=== PATIENT | female | born 1975 | race Hispanic/Latino ===

== ENCOUNTER → 2016-03-20 | Outpatient (CLI) | payer OTHER ==
--- NOTE | 2016-04-07 00:33 | ECWPNPC ---
PATIENT NAME: PAMELLA LONDONO : 1975 GENDER: FEMALE VISIT DATE: 03/20/2016 DISCHARGE DATE: 03/20/16 1116 VISIT LOCKED DATE TIME: PHYSICIAN: ZANE FOURNIER RESOURCE: ZANE FOURNIER REASON FOR APPOINTMENT 1. BACK/HIPS HISTORY OF PRESENT ILLNESS HISTORY OF PRESENT ILLNESS: HERE FOR F/U OF CHRONIC LEFT LOW BACK PAIN.ALSO C/O CHRONIC NECK PAIN.HAD TPI NECK 12-25-15.REPORTED >50% DECREASE IN PAIN POST PROCEDURE .CONTINUES WITH CHRONIC LBP THAT IS AGGREVATED BY PROLONGED SITTING OR STANDING.RATING PAIN VAS 1/10. PAIN THE PATIENT DESCRIBES THE PAIN... THE PATIENT DESCRIBES THE PAIN... FALL RISK SCREENING: SCREENING :NO FALLS IN THE PAST YEAR CURRENT MEDICATIONS TAKING IRON 325 (65 FE) MG TABLET 1 TABLET ORALLY ONCE A DAY TAKING ADDERALL XR 20 MG CAPSULE EXTENDED RELEASE 24 HOUR 2 CAPSULES IN THE MORNING ORALLY BID TAKING TROKENDI XR 200 MG CAPSULE EXTENDED RELEASE 24 HOUR ORAL ONCE DAILY TAKING PROBIOTIC CAPSULE 1 CAP ORALLY DAILY, NOTES: 12/15/15 1700 TAKING SUMATRIPTAN SUCCINATE 100 MG TABLET 1 TABLET NEEDED ONE TIME ORALLY ONCE A DAY TAKING CYMBALTA 60 MG CAPSULE DELAYED RELEASE PARTICLES 1 CAPSULE ORALLY ONCE A DAY TAKING WELLBUTRIN XL 150 MG TABLET EXTENDED RELEASE 24 HOUR 1 TABLET IN THE MORNING ORALLY ONCE A DAY NOT-TAKING FISH OIL 1000 MG CAPSULE 1 CAPSULE ORALLY ONCE A DAY NOT-TAKING LIDOCAINE VISCOUS 2 % SOLUTION 15 ML NEEDED MOUTH/THROAT EVERY 4 HRS PRN NOT-TAKING ANUSOL-HC 2.5 % CREAM 1 APPLICATION TO AFFECTED AREA RECTAL TWICE A DAY FOR EXTERNAL HEMORRHOIDSAS NEEDED NOT-TAKING LIDOCAINE (ANORECTAL) 5 % CREAM 1 DAB EXTERNALLY TO RECTAL AREA UP TO EVERY 4HRS FOR RECTAL/ANAL PAIN NEEDED NOT-TAKING CLOTRIMAZOLE-BETAMETHASONE 1-0.05 % CREAM APPLY TO AFFECTED AREAS IN EXTERNAL VAGINAL AREA EXTERNALLY NEEDED (NOT TO BE USED INTERNALLY) NOT-TAKING STOOL SOFTENER 100 MG CAPSULE 1 CAPSULE NEEDED ORALLY ONCE A DAY NEEDED MEDICATION LIST REVIEWED AND RECONCILED WITH THE PATIENT PAST MEDICAL HISTORY DEPRESSION/ANXIETY/DYSTHYMIA ADD MIGRAINE HEADACHES ALLERGIC RHINITIS/CONJUNCTIVITIS IRON DEFICIENCY HEMORRHOIDS/INT CONSTIPATION HTN VITAMIN D DEFICIENCY STRESS INCONTINENCE H/O PE/INFARCT IDIOPATHIC HYPERSOMNIA (NEURO.) BACK PAIN ALLERGIES ENVIRONMENTAL: NASAL CONGESTION: ALLERGY MOLD: NASAL CONGESTION: ALLERGY DOGS AND CATS: UNSURE OF REACTION: ALLERGY PT STATES SHE GETS ALLERGY INJECTIONS SOCIAL HISTORY GENERAL: TOBACCO USE ARE YOU A:NONSMOKER LEARNING BARRIERS / SPECIAL NEEDS ORIENTED TO PLAN OF CARE: PATIENT, PAIN MANAGEMENT PATIENT, ORIENTED TO PLAN OF CARE: PATIENT, PAIN MANAGEMENT PATIENT. NEW PATIENT PAIN DIARY TODAY'S VISITNOTES FROM 0-10, WHAT LEVEL IS YOUR PAIN TODAY?0 PAIN CLINIC PFS, CLERGY, PUBLIC HEALTH REFERRALS PFS REFERRAL NEEDED?NO CLERGY REFERRAL NEEDED?NO PUBLIC HEALTH REFERRAL NEEDED?NO WAS THE PROVIDER NOTIFIED OF ANY PERTINENT INFO?NO PFS REFERRAL NEEDED?NO CLERGY REFERRAL NEEDED?NO PUBLIC HEALTH REFERRAL NEEDED?NO WAS THE PROVIDER NOTIFIED OF ANY PERTINENT INFO?NO REVIEW OF SYSTEMS CONSTITUTIONAL: ANY CHANGE IN YOUR MEDICAL CONDITION? NO . CHILLS NO . FEVER NO . INFECTION: DO YOU HAVE NEW INFECTIONS? NO . DO YOU HAVE HISTORY OF MRSA? NO . MUSCULOSKELETAL: ANY NEW PATTERNS OF PAIN OR NUMBNESS? NO . GASTROENTEROLOGY: ANY NEW CHANGE IN BOWEL CONTROL? NO . GENITOURINARY: ANY NEW CHANGE IN BLADDER CONTROL? NO . IS THERE A CHANCE YOU COULD BE ? NO . HEMATOLOGY/LYMPH: DO YOU TAKE ANY BLOOD THINNERS? (FOR EXAMPLE- COUMADIN, PLAVIX, AGGRENOX, PLATEL, PRADAXA, OR XARELTO) NO . WHEN WAS YOUR LAST DOSE? DATE: TIME: . NEUROLOGY: HAVE YOU FALLEN IN THE PAST 6 MONTHS? NO . ANY NEW EXTREMITY NUMBNESS OR WEAKNESS? NO . CARDIOLOGY: DO YOU HAVE A PACEMAKER OR DEFIBRILLATOR? NO . RESPIRATORY: HAVE YOU BEEN SICK IN THE PAST WEEK? NO . FEVER NO . FLU LIKE SYMPTOMS? NO . COUGH NO . INTEGUMENTARY: DO YOU HAVE ANY RASHES OR OPEN SORES? NO . ALLERGIC/IMMUNO: ARE YOU ALLERGIC TO SHELLFISH OR IV DYE? NO . ANY NEW ALLERGIES? NO . PSYCHIATRIC: DO YOU HAVE THOUGHTS OF HURTING YOURSELF OR SOMEONE ELSE? NO . ARE YOU ABUSED, NEGLECTED, OR IN AN UNSAFE ENVIRONMENT? NO . ENDOCRINOLOGY: ARE YOU DIABETIC? NO . OTHER: DO YOU NEED ANY PRESCRIPTIONS? NO . IF YES, PLEASE LIST: ____ . ANY NEW PROBLEMS WITH YOUR MEDICATIONS? NO . WHEN DID YOU LAST EAT? ____ . WHEN DID YOU LAST DRINK? ____ . WHAT DID YOU LAST DRINK? ____ . NAME OF PERSON DRIVING YOU HOME? ____ . DO YOU HAVE ANY OTHER QUESTIONS OR CONCERNS NO . REVIEWED BY: PROVIDER: ZANE CRAWFORD . VITAL SIGNS WT 195 LBS, HT 66 IN, BMI 31.47 INDEX, BP 141/96 R ARM, REPEAT BP 146/96 L ARM, HR 89 /MIN, RR 16 /MIN, TEMP 98.1 F, OXYGEN SAT % 98, NA INITIALS TL 1039. EXAMINATION GENERAL EXAMINATION: LUNGS:LUNG SOUNDS ARE CLEAR. HEART:HEART RATE REGULAR. MUSCULOSKELETAL:*, MUSCLE STRENGTH TESTING 5/5 BILATERAL., PALPATION: NEGATIVE FOR PAIN OVER L/S SPINE. NEGATIVE FOR PAIN OVER L/S PARSPINALS.ROJM SPINE FULL WITHOUT PAIN. DIAGNOSTIC:MRI L/S [id number]-REVIEWED. ASSESSMENTS SPONDYLOSIS OF LUMBAR REGION WITHOUT MYELOPATHY OR RADICULOPATHY - M47.816 (PRIMARY) TREATMENT SPONDYLOSIS OF LUMBAR REGION WITHOUT MYELOPATHY OR RADICULOPATHY LUMBAR FACET THERAPEUTICZANE FOURNIER 03/20/2016 11:10:41 AM > LEFT LUMBAR THERAPEUTIC PROCEDURE CODES FA211 ESTABILISHED PATIENT [facility] CHARGE FOLLOW UP 2WK POST (REASON: LEFT LUMBAR THERAPEUTIC) ELECTRONICALLY SIGNED BY TY FORREST ON 04/06/2016 AT 11:33 AM EST DISCLAIMER : THIS IS A VISIT SUMMARY EXTRACTED FROM THE [employer] CHART. IT IS NOT A COPY OF THE [employer] PROGRESS NOTE. MTDD
== END ==
LOC: M PAIN 10:20
PROVIDERS: ATTEND Nurse Practitioner Family
DX: M47.816 Spondylosis without myelopathy or radiculopathy, lumbar region (principal); M54.2 Cervicalgia; M54.5 Low back pain; G89.29 Other chronic pain; F32.9 Major depressive disorder, single episode, unspecified; F41.9 Anxiety disorder, unspecified; F90.0 Attention-deficit hyperactivity disorder, predominantly inattentive type; G43.909 Migraine, unspecified, not intractable, without status migrainosus; E61.1 Iron deficiency; I10 Essential (primary) hypertension; E55.9 Vitamin D deficiency, unspecified; Z79.899 Other long term (current) drug therapy; Z91.09 Other allergy status, other than to drugs and biological substances

== ENCOUNTER → 2016-05-02 | Outpatient (CLI) | payer OTHER ==
[~2016-05-02] MED LIST: BUPIVACAINE HCL 0.25% 30 ML VIAL As Ordered ONE; ISOVUE-M 300 61% 15ML VIAL (Q9967) As Ordered ONE; LIDOCAINE 1% SDV INJ 30 ML VIAL As Ordered ONE; TRIAMCINOLONE ACETONIDE SUSP 40 MG/ML VIAL (J3301) As Ordered ONE; diazePAM 5 MG TAB As Ordered ONE; oxyCODONE 5MG TAB As Ordered ONE
--- NOTE | 2016-05-02 15:33 | REP ---
Partial lumbar spine series: Single view. History: Lumbar facet block for pain. 24 seconds of fluoroscopy time is reported. Findings: A single fluoroscopically obtained last image hold spot radiograph of the lumbar spine shows needle positions and contrast injections associated with lumbar facet injection procedure. Signed by Jah Mcclure MD 05/02/2016 03:23 P
--- NOTE | 2016-05-11 01:18 | ECWPNPC ---
PATIENT NAME: PAMELLA LONDONO : 1975 GENDER: FEMALE VISIT DATE: 05/02/2016 DISCHARGE DATE: 05/02/16 1134 VISIT LOCKED DATE TIME: PHYSICIAN: WOOD MARMOLEJO RESOURCE: WOOD MARMOLEJO REASON FOR APPOINTMENT 1. L FACET HISTORY OF PRESENT ILLNESS HISTORY OF PRESENT ILLNESS: PAIN THE PATIENT DESCRIBES THE PAIN... FALL RISK SCREENING: SCREENING :NO FALLS IN THE PAST YEAR CURRENT MEDICATIONS TAKING IRON 325 (65 FE) MG TABLET 1 TABLET ORALLY ONCE A DAY NEEDED, NOTES: 2 MONTHS AGO TAKING TROKENDI XR 200 MG CAPSULE EXTENDED RELEASE 24 HOUR ORAL ONCE DAILY, NOTES: 05/01/16 2100 TAKING PROBIOTIC CAPSULE 1 CAP ORALLY DAILY, NOTES: 3 DAYS AGO TAKING SUMATRIPTAN SUCCINATE 100 MG TABLET 1 TABLET NEEDED ONE TIME ORALLY ONCE A DAY, NOTES: 3 DAYS AGO TAKING CYMBALTA 60 MG CAPSULE DELAYED RELEASE PARTICLES 1 CAPSULE ORALLY ONCE A DAY, NOTES: 05/01/16 2100 TAKING WELLBUTRIN XL 150 MG TABLET EXTENDED RELEASE 24 HOUR 1 TABLET IN THE MORNING ORALLY ONCE A DAY, NOTES: 05/01/16 0900 TAKING CONCERTA 36 MG TABLET EXTENDED RELEASE 1 TABLET IN THE MORNING ORALLY TWICE A DAY, NOTES: 05/01/16 1300 NOT-TAKING ADDERALL XR 20 MG CAPSULE EXTENDED RELEASE 24 HOUR 2 CAPSULES IN THE MORNING ORALLY BID NOT-TAKING FISH OIL 1000 MG CAPSULE 1 CAPSULE ORALLY ONCE A DAY NOT-TAKING LIDOCAINE VISCOUS 2 % SOLUTION 15 ML NEEDED MOUTH/THROAT EVERY 4 HRS PRN NOT-TAKING ANUSOL-HC 2.5 % CREAM 1 APPLICATION TO AFFECTED AREA RECTAL TWICE A DAY FOR EXTERNAL HEMORRHOIDSAS NEEDED NOT-TAKING LIDOCAINE (ANORECTAL) 5 % CREAM 1 DAB EXTERNALLY TO RECTAL AREA UP TO EVERY 4HRS FOR RECTAL/ANAL PAIN NEEDED NOT-TAKING CLOTRIMAZOLE-BETAMETHASONE 1-0.05 % CREAM APPLY TO AFFECTED AREAS IN EXTERNAL VAGINAL AREA EXTERNALLY NEEDED (NOT TO BE USED INTERNALLY) NOT-TAKING STOOL SOFTENER 100 MG CAPSULE 1 CAPSULE NEEDED ORALLY ONCE A DAY NEEDED MEDICATION LIST REVIEWED AND RECONCILED WITH THE PATIENT PAST MEDICAL HISTORY DEPRESSION/ANXIETY/DYSTHYMIA ADD MIGRAINE HEADACHES ALLERGIC RHINITIS/CONJUNCTIVITIS (ON ALLERGY INJECTIONS) IRON DEFICIENCY HEMORRHOIDS/INT CONSTIPATION HTN VITAMIN D DEFICIENCY STRESS INCONTINENCE H/O PE/INFARCT IDIOPATHIC HYPERSOMNIA (NEURO.) BACK PAIN CARPAL TUNNEL BILATERAL BONE SPURS CERVICAL AREA ALLERGIES ENVIRONMENTAL: NASAL CONGESTION: ALLERGY MOLD: NASAL CONGESTION: ALLERGY DOGS AND CATS: UNSURE OF REACTION: ALLERGY PT STATES SHE GETS ALLERGY INJECTIONS BANANA (DIAGNOSTIC): TONGUE SWELLING: ALLERGY STRAWBERRY (DIAGNOSTIC): TONGUE SWELLING: ALLERGY PINEAPPLE FLAVOR: TONGUE SWELLING: ALLERGY SURGICAL HISTORY C SECTION. 2006 CERVICAL ABLATION 2013 TONSILLECTOMY 1992 SOCIAL HISTORY GENERAL: TOBACCO USE ARE YOU A:NONSMOKER LEARNING BARRIERS / SPECIAL NEEDS ORIENTED TO PLAN OF CARE: PATIENT, PAIN MANAGEMENT PATIENT, ORIENTED TO PLAN OF CARE: PATIENT, PAIN MANAGEMENT PATIENT. NEW PATIENT PAIN DIARY TODAY'S VISITNOTES FROM 0-10, WHAT LEVEL IS YOUR PAIN TODAY?0 PAIN CLINIC PFS, CLERGY, PUBLIC HEALTH REFERRALS PFS REFERRAL NEEDED?NO CLERGY REFERRAL NEEDED?NO PUBLIC HEALTH REFERRAL NEEDED?NO WAS THE PROVIDER NOTIFIED OF ANY PERTINENT INFO?NO PFS REFERRAL NEEDED?NO CLERGY REFERRAL NEEDED?NO PUBLIC HEALTH REFERRAL NEEDED?NO WAS THE PROVIDER NOTIFIED OF ANY PERTINENT INFO?NO HOSPITALIZATION/MAJOR DIAGNOSTIC PROCEDURE CHILDBIRTH 2002, 2004, 2005 PULMONARY EMBOLISM, WAS TREATED WITH COUMADIN FOR 6 MONTHS, UNKNOWN CAUSE. 01/2003 REVIEW OF SYSTEMS CONSTITUTIONAL: ANY CHANGE IN YOUR MEDICAL CONDITION? NO . CHILLS NO . FEVER NO . INFECTION: DO YOU HAVE NEW INFECTIONS? NO . DO YOU HAVE HISTORY OF MRSA? NO . MUSCULOSKELETAL: ANY NEW PATTERNS OF PAIN OR NUMBNESS? NO . GASTROENTEROLOGY: ANY NEW CHANGE IN BOWEL CONTROL? NO . GENITOURINARY: ANY NEW CHANGE IN BLADDER CONTROL? NO . IS THERE A CHANCE YOU COULD BE ? NO . HEMATOLOGY/LYMPH: DO YOU TAKE ANY BLOOD THINNERS? (FOR EXAMPLE- COUMADIN, PLAVIX, AGGRENOX, PLATEL, PRADAXA, OR XARELTO) NO . WHEN WAS YOUR LAST DOSE? DATE: TIME: . NEUROLOGY: HAVE YOU FALLEN IN THE PAST 6 MONTHS? NO . ANY NEW EXTREMITY NUMBNESS OR WEAKNESS? NO . CARDIOLOGY: DO YOU HAVE A PACEMAKER OR DEFIBRILLATOR? NO . RESPIRATORY: HAVE YOU BEEN SICK IN THE PAST WEEK? NO . FEVER NO . FLU LIKE SYMPTOMS? NO . COUGH NO . INTEGUMENTARY: DO YOU HAVE ANY RASHES OR OPEN SORES? NO . ALLERGIC/IMMUNO: ARE YOU ALLERGIC TO SHELLFISH OR IV DYE? NO . ANY NEW ALLERGIES? NO . PSYCHIATRIC: DO YOU HAVE THOUGHTS OF HURTING YOURSELF OR SOMEONE ELSE? NO . ARE YOU ABUSED, NEGLECTED, OR IN AN UNSAFE ENVIRONMENT? NO . ENDOCRINOLOGY: ARE YOU DIABETIC? NO . OTHER: DO YOU NEED ANY PRESCRIPTIONS? NO . ANY NEW PROBLEMS WITH YOUR MEDICATIONS? NO . WHEN DID YOU LAST EAT? 05/01/162099 . WHEN DID YOU LAST DRINK? 05/01/162099 . WHAT DID YOU LAST DRINK? MILK . NAME OF PERSON DRIVING YOU HOME? BERENICE MARINO . DO YOU HAVE ANY OTHER QUESTIONS OR CONCERNS NO . REVIEWED BY: PROVIDER: . VITAL SIGNS WT 195 LBS, HT 66 IN, BMI 31.47 INDEX, BP 123/81 MM HG, HR 73 /MIN, RR 16 /MIN, TEMP 96.3 F, OXYGEN SAT % 98%, NA INITIALS SC 09:22, REVIEWED BY: LS. ASSESSMENTS SPONDYLOSIS WITHOUT MYELOPATHY OR RADICULOPATHY, LUMBAR REGION - M47.816 (PRIMARY) SPONDYLOSIS WITHOUT MYELOPATHY OR RADICULOPATHY, LUMBOSACRAL REGION - M47.817 PROCEDURES PN LUMBAR FACET BLOCK THERAPEUTIC PRE PROCEDURE DIAGNOSIS LUMBAR SPONDYLOSIS, LUMBOSACRAL SPONDYLOSIS POST PROCEDURE DIAGNOSIS LUMBAR SPONDYLOSIS, LUMBOSACRAL SPONDYLOSIS PROCEDURE LEFT L4-L5 AND LEFT L5-S1 FACET THERAPEUTIC BLOCK SURGEON DR. WOOD MARMOLEJO TOOLROOM MACHINIST NONE ANESTHESIA LOCAL PRE PROCEDURE NOTE THE PATIENT HAS A HISTORY OF CHRONIC LOW BACK PAIN. I EVALUATE THE PATIENT AND REVIEWED THE CHART. I WENT OVER THE RISKS, ALTERNATIVES, AND BENEFITS ASSOCIATED WITH THIS PROCEDURE. THE PATIENT WOULD LIKE TO PROCEED AND GIVE CONSENT TO PERFORMED THE PROCEDURE. THE PATIENT DENIES UNEXPLAINABLE WEIGHT LOSS, FEVER, CHILLS, OR NEW CHANGES IN URINARY OR BOWEL CONTROL. DESCRIPTION OF PROCEDURE THE PATIENT WAS BROUGHT TO THE PROCEDURE ROOM AND PLACED IN THE PRONE POSITION. THE LUMBOSACRAL AREA WAS CLEANED WITH CHLORAPREP SOLUTION AND DRAPED ASEPTICALLY. THE PROCEDURE WAS DONE UNDER STERILE CONDITIONS. I CHECKED LATERALITY AND THE LEVEL WHERE THE PROCEDURE WAS GOING TO BE PERFORMED WITH THE PATIENT AND THE SUPPORTING STAFF AT THE MOMENT OF THE TIME OUT IN THE PROCEDURE ROOM. UNDER FLUOROSCOPIC GUIDANCE, THE TARGET POINT WAS SELECTED AT THE LEFT L4-L5 AND LEFT L5-S1 FACET JOINT. TARGET POINT WAS SELECTED AFTER LATERAL ROTATION AND TILT OF THE MAGNIFIER OF THE C-ARM. LIDOCAINE 0.5% WAS USED TO NUMB THE SKIN AND THE SUBCUTANEOUS TISSUE BELOW IT. SPINAL NEEDLES, 22-GAUGE, WERE ADVANCED UNDER FLUOROSCOPIC GUIDANCE AND FOLLOWING PATIENT FEEDBACK UNTIL THE TARGETS WERE TOUCHED. THE POSITION OF THE NEEDLES WAS VERIFIED WITH AP AND LATERAL VIEWS. AFTER PROPER POSITION OF THE NEEDLES WAS ACHIEVED, ISOVUE-M DYE 30% 0.1 ML WAS INJECTED SHOWING ADEQUATE SPREAD OF THE DYE. THEN A SOLUTION OF 1.9 ML OF BUPIVACAINE 0.125% OF KENALOG 10 MG WAS INJECTED AT EACH SITE. THERE WAS NO EVIDENCE OF BLOOD, PARESTHESIA OR CEREBROSPINAL FLUID DURING THE PROCEDURE. THE PATIENT WAS SENT TO THE RECOVERY ROOM. THE PATIENT WAS MOVING THE EXTREMITIES AND DOING WELL. THERE WAS NO COMPLICATION DURING THE PROCEDURE. FLUOROSCOPY TIME WAS 24 SECONDS POST PROCEDURE NOTE THE PATIENT WILL BE SEEN IN A FOLLOW UP IN THE NEXT FEW WEEKS. INSTRUCTIONS WERE GIVEN, QUESTIONS WERE ANSWERED, AND THE PATIENT EXPRESSED UNDERSTANDING AND AGREES WITH THE PLAN. INSTRUCTIONS WERE GIVEN, QUESTIONS WERE ANSWERED, PATIENT REPORTS UNDERSTANDING AND AGREES WITH THE PLAN. I, KAMILLE FRAUSTO, DOCUMENTED THE ABOVE INFORMATION ACTING A SCRIBE FOR DR. MARMOLEJO. I HAVE REVIEWED THE ABOVE DOCUMENT, WRITTEN BY KAMILLE FRAUSTO SCRIBE AND I VERIFY THAT IT IS ACCURATE. DIAGNOSTIC IMAGING [facility] FACET BLOCK (PAIN)[id number] PROCEDURE CODES 33987 INJ PARAVERT F JNT L/S 1 LEV 63496 INJ PARAVERT F JNT L/S 2 LEV 6045F RADXPS IN END [id number] PXD DISPOSITION & COMMUNICATION FOLLOW UP 3 WEEKS ELECTRONICALLY SIGNED BY WOOD MARMOLEJO MD ON 05/07/2016 AT 01:08 PM EDT DISCLAIMER : THIS IS A VISIT SUMMARY EXTRACTED FROM THE [employer] CHART. IT IS NOT A COPY OF THE [employer] PROGRESS NOTE. MTDD
== END | disposition home or self-care (01) ==
LOC: M PAIN 09:10
PROVIDERS: ATTEND Anesthesiology
DX: G89.29 Other chronic pain (principal); M47.816 Spondylosis without myelopathy or radiculopathy, lumbar region; M47.817 Spondylosis without myelopathy or radiculopathy, lumbosacral region; I10 Essential (primary) hypertension; F32.9 Major depressive disorder, single episode, unspecified; F41.9 Anxiety disorder, unspecified; G43.909 Migraine, unspecified, not intractable, without status migrainosus; E61.1 Iron deficiency; Z79.899 Other long term (current) drug therapy; J30.2 Other seasonal allergic rhinitis; J30.81 Allergic rhinitis due to animal (cat) (dog) hair and dander; J30.89 Other allergic rhinitis; Z91.018 Allergy to other foods
CPT/HCPCS: 64493; 64494; J3301; Q9967

== ENCOUNTER → 2016-05-16 | Outpatient (CLI) | payer OTHER ==
--- NOTE | 2016-05-24 01:54 | ECWPNPC ---
PATIENT NAME: PAMELLA LONDONO : 1975 GENDER: FEMALE VISIT DATE: 05/16/2016 DISCHARGE DATE: 05/16/16 1658 VISIT LOCKED DATE TIME: PHYSICIAN: ZANE FOURNIER RESOURCE: ZANE FOURNIER REASON FOR APPOINTMENT 1. POST PROCEDURE HISTORY OF PRESENT ILLNESS HISTORY OF PRESENT ILLNESS: HERE FOR POST PROCEURE F/U.HAD L4/5-L5/S1 THERAPEUTIC FACET BLOCK.REPORTS IMPROVED ABILITY TO TOLERATE ACTIVITY POST PROCEDURE UNTIL APROXIMATLEY TODAY.PAIN IS AGGREVATED BY INCREASE IN ACTIVITY IE BENDING AND USING ARMS.C/O RIGHT SIDED NECK TENDERNESS.RATING PAIN VAS 3/10 BOTH NECK AND LOW BACK.PAIN IS RELIEVED WITH REST.CURRENTLY USING IBUPROFEN PRN THAT IS NOT HELPFUL. PAIN THE PATIENT DESCRIBES THE PAIN... FALL RISK SCREENING: SCREENING :NO FALLS IN THE PAST YEAR CURRENT MEDICATIONS TAKING IRON 325 (65 FE) MG TABLET 1 TABLET ORALLY ONCE A DAY NEEDED TAKING TROKENDI XR 200 MG CAPSULE EXTENDED RELEASE 24 HOUR ORAL ONCE DAILY TAKING PROBIOTIC CAPSULE 1 CAP ORALLY DAILY TAKING SUMATRIPTAN SUCCINATE 100 MG TABLET 1 TABLET NEEDED ONE TIME ORALLY ONCE A DAY TAKING CYMBALTA 60 MG CAPSULE DELAYED RELEASE PARTICLES 1 CAPSULE ORALLY ONCE A DAY TAKING WELLBUTRIN XL 150 MG TABLET EXTENDED RELEASE 24 HOUR 1 TABLET IN THE MORNING ORALLY ONCE A DAY TAKING CONCERTA 36 MG TABLET EXTENDED RELEASE 1 TABLET IN THE MORNING ORALLY TWICE A DAY NOT-TAKING ADDERALL XR 20 MG CAPSULE EXTENDED RELEASE 24 HOUR 2 CAPSULES IN THE MORNING ORALLY BID NOT-TAKING FISH OIL 1000 MG CAPSULE 1 CAPSULE ORALLY ONCE A DAY NOT-TAKING LIDOCAINE VISCOUS 2 % SOLUTION 15 ML NEEDED MOUTH/THROAT EVERY 4 HRS PRN NOT-TAKING ANUSOL-HC 2.5 % CREAM 1 APPLICATION TO AFFECTED AREA RECTAL TWICE A DAY FOR EXTERNAL HEMORRHOIDSAS NEEDED NOT-TAKING LIDOCAINE (ANORECTAL) 5 % CREAM 1 DAB EXTERNALLY TO RECTAL AREA UP TO EVERY 4HRS FOR RECTAL/ANAL PAIN NEEDED NOT-TAKING CLOTRIMAZOLE-BETAMETHASONE 1-0.05 % CREAM APPLY TO AFFECTED AREAS IN EXTERNAL VAGINAL AREA EXTERNALLY NEEDED (NOT TO BE USED INTERNALLY) NOT-TAKING STOOL SOFTENER 100 MG CAPSULE 1 CAPSULE NEEDED ORALLY ONCE A DAY NEEDED MEDICATION LIST REVIEWED AND RECONCILED WITH THE PATIENT PAST MEDICAL HISTORY DEPRESSION/ANXIETY/DYSTHYMIA ADD MIGRAINE HEADACHES ALLERGIC RHINITIS/CONJUNCTIVITIS (ON ALLERGY INJECTIONS) IRON DEFICIENCY HEMORRHOIDS/INT CONSTIPATION HTN VITAMIN D DEFICIENCY STRESS INCONTINENCE H/O PE/INFARCT IDIOPATHIC HYPERSOMNIA (NEURO.) BACK PAIN CARPAL TUNNEL BILATERAL BONE SPURS CERVICAL AREA ALLERGIES ENVIRONMENTAL: NASAL CONGESTION: ALLERGY MOLD: NASAL CONGESTION: ALLERGY DOGS AND CATS: UNSURE OF REACTION: ALLERGY PT STATES SHE GETS ALLERGY INJECTIONS BANANA (DIAGNOSTIC): TONGUE SWELLING: ALLERGY STRAWBERRY (DIAGNOSTIC): TONGUE SWELLING: ALLERGY PINEAPPLE FLAVOR: TONGUE SWELLING: ALLERGY SOCIAL HISTORY GENERAL: TOBACCO USE ARE YOU A:NONSMOKER LEARNING BARRIERS / SPECIAL NEEDS ORIENTED TO PLAN OF CARE: PATIENT, PAIN MANAGEMENT PATIENT, ORIENTED TO PLAN OF CARE: PATIENT, PAIN MANAGEMENT PATIENT. NEW PATIENT PAIN DIARY TODAY'S VISITNOTES FROM 0-10, WHAT LEVEL IS YOUR PAIN TODAY?0 PAIN CLINIC PFS, CLERGY, PUBLIC HEALTH REFERRALS PFS REFERRAL NEEDED?NO CLERGY REFERRAL NEEDED?NO PUBLIC HEALTH REFERRAL NEEDED?NO WAS THE PROVIDER NOTIFIED OF ANY PERTINENT INFO?NO PFS REFERRAL NEEDED?NO CLERGY REFERRAL NEEDED?NO PUBLIC HEALTH REFERRAL NEEDED?NO WAS THE PROVIDER NOTIFIED OF ANY PERTINENT INFO?NO REVIEW OF SYSTEMS CONSTITUTIONAL: ANY CHANGE IN YOUR MEDICAL CONDITION? NO . CHILLS NO . FEVER NO . INFECTION: DO YOU HAVE NEW INFECTIONS? NO . DO YOU HAVE HISTORY OF MRSA? NO . MUSCULOSKELETAL: ANY NEW PATTERNS OF PAIN OR NUMBNESS? NO . GASTROENTEROLOGY: ANY NEW CHANGE IN BOWEL CONTROL? NO . GENITOURINARY: ANY NEW CHANGE IN BLADDER CONTROL? NO . IS THERE A CHANCE YOU COULD BE ? NO . HEMATOLOGY/LYMPH: DO YOU TAKE ANY BLOOD THINNERS? (FOR EXAMPLE- COUMADIN, PLAVIX, AGGRENOX, PLATEL, PRADAXA, OR XARELTO) NO . WHEN WAS YOUR LAST DOSE? DATE: TIME: . NEUROLOGY: HAVE YOU FALLEN IN THE PAST 6 MONTHS? NO . ANY NEW EXTREMITY NUMBNESS OR WEAKNESS? NO . CARDIOLOGY: DO YOU HAVE A PACEMAKER OR DEFIBRILLATOR? NO . RESPIRATORY: HAVE YOU BEEN SICK IN THE PAST WEEK? NO . FEVER NO . FLU LIKE SYMPTOMS? NO . COUGH NO . INTEGUMENTARY: DO YOU HAVE ANY RASHES OR OPEN SORES? NO . ALLERGIC/IMMUNO: ARE YOU ALLERGIC TO SHELLFISH OR IV DYE? NO . ANY NEW ALLERGIES? NO . PSYCHIATRIC: DO YOU HAVE THOUGHTS OF HURTING YOURSELF OR SOMEONE ELSE? NO . ARE YOU ABUSED, NEGLECTED, OR IN AN UNSAFE ENVIRONMENT? NO . ENDOCRINOLOGY: ARE YOU DIABETIC? NO . OTHER: DO YOU NEED ANY PRESCRIPTIONS? YES . IF YES, PLEASE LIST: ____SOMETHING FOR MUSCLE SPASMS IN HER NECK . ANY NEW PROBLEMS WITH YOUR MEDICATIONS? NO . WHEN DID YOU LAST EAT? ____ . WHEN DID YOU LAST DRINK? ____ . WHAT DID YOU LAST DRINK? ____ . NAME OF PERSON DRIVING YOU HOME? ____ . DO YOU HAVE ANY OTHER QUESTIONS OR CONCERNS YES, MUSCLES SPASMS IN HER NECK ARE INCREASING. . REVIEWED BY: PROVIDER: ZANE CRAWFORD . VITAL SIGNS WT 195 LBS, HT 66 IN, BMI 31.47 INDEX, BP 142/94 MM HG, HR 81 /MIN, RR 16 /MIN, TEMP 97.1 F, OXYGEN SAT % 99, NA INITIALS HS, REVIEWED BY: AD. EXAMINATION GENERAL EXAMINATION: LUNGS:LUNG SOUNDS ARE CLEAR. HEART:HEART RATE REGULAR. MUSCULOSKELETAL:*, MUSCLE STRENGTH TESTING 5/5 BILATERAL., PALPATION: NEGATIVE FOR PAIN OVER L/S SPINE. NEGATIVE FOR PAIN OVER L/S PARSPINALS.ROJM SPINE FULL WITHOUT PAIN. DIAGNOSTIC:MRI L/S [id number]-REVIEWED. ASSESSMENTS LUMBAR FACET ARTHROPATHY - M12.88 (PRIMARY) MYOFASCIAL PAIN - M79.1 TREATMENT LUMBAR FACET ARTHROPATHY START CYCLOBENZAPRINE HCL TABLET, 5 MG, 1 TABLET, ORALLY, Q8H PRN MDD2, 30 DAY(S), 30, REFILLS 1 INJECTION FACET JOINT/NERVE FREDIS/SACRALZANE FOURNIER 05/16/2016 4:40:10 PM > L3/4-L4/5 DIAGNOSTIC LUMBAR FACET BLOCK ZANE FOURNIER 05/16/2016 4:43:20 PM > LEFT ZANE FOURNIER 05/23/2016 5:55:51 PM > DIAGNOSTIC LEFT NOTES: FACET JOINT INJECTION MATERIAL WAS PRINTED,FACET JOINT INJECTION: YOUR EXPERIENCE MATERIAL WAS PRINTED,FACET JOINT INJECTION: YOUR EXPERIENCE MATERIAL WAS PRINTED. PROCEDURE CODES FA211 ESTABILISHED PATIENT [facility] FACILITY CHARGE DISPOSITION & COMMUNICATION FOLLOW UP 2WK POST (REASON: L3/4-L4/5 DIAGNOSTIC LEFT LUMBAR FACET) ELECTRONICALLY SIGNED BY TY FORREST ON 05/23/2016 AT 05:56 PM EDT DISCLAIMER : THIS IS A VISIT SUMMARY EXTRACTED FROM THE [employer] CHART. IT IS NOT A COPY OF THE [employer] PROGRESS NOTE. MTDD
== END ==
LOC: M PAIN 15:00
PROVIDERS: ATTEND Nurse Practitioner Family
DX: M12.88 Other specific arthropathies, not elsewhere classified, other specified site (principal); M79.1 Myalgia; Z79.899 Other long term (current) drug therapy; D50.8 Other iron deficiency anemias; F34.1 Dysthymic disorder; J30.81 Allergic rhinitis due to animal (cat) (dog) hair and dander; J30.2 Other seasonal allergic rhinitis; Z91.018 Allergy to other foods

== ENCOUNTER → 2016-05-22 | Outpatient (REF) | payer OTHER | LOC: M SFHCLERA 12:34 | PROVIDERS: ATTEND Nurse Practitioner Family | DX: J02.9 Acute pharyngitis, unspecified (principal) ==

== ENCOUNTER → 2016-06-09 | Outpatient (CLI) | payer OTHER ==
[~2016-06-09] MED LIST changes: -TRIAMCINOLONE ACETONIDE SUSP 40 MG/ML VIAL (J3301) As Ordered ONE; -diazePAM 5 MG TAB As Ordered ONE; -oxyCODONE 5MG TAB As Ordered ONE
--- NOTE | 2016-06-09 16:08 | REP ---
Partial lumbar spine series: Two views: History: Lumbar facet injection for pain. 21 seconds of fluoroscopy time is reported. Findings: A sequence of two last image hold fluoroscopic spot radiographs of the lumbar spine document various needle positions and contrast injections associated with lumbar spine injection procedure. Signed by Jah Mcclure MD 06/09/2016 06:00 P
--- NOTE | 2016-06-18 23:55 | ECWPNPC ---
PATIENT NAME: PAMELLA LONDONO : 1975 GENDER: FEMALE VISIT DATE: 06/09/2016 DISCHARGE DATE: 06/09/16 1414 VISIT LOCKED DATE TIME: PHYSICIAN: WOOD MARMOLEJO RESOURCE: WOOD MARMOLEJO REASON FOR APPOINTMENT 1. DIAGNOSTIC FACET CURRENT MEDICATIONS TAKING IRON 325 (65 FE) MG TABLET 1 TABLET ORALLY ONCE A DAY NEEDED, NOTES: 05-27-162099 TAKING TROKENDI XR 200 MG CAPSULE EXTENDED RELEASE 24 HOUR ORAL ONCE DAILY, NOTES: 06-07-162099 TAKING PROBIOTIC CAPSULE 1 CAP ORALLY DAILY, NOTES: 05-27-162099 TAKING SUMATRIPTAN SUCCINATE 100 MG TABLET 1 TABLET NEEDED ONE TIME ORALLY ONCE A DAY, NOTES: 06-02-162099 TAKING CYMBALTA 60 MG CAPSULE DELAYED RELEASE PARTICLES 1 CAPSULE ORALLY ONCE A DAY, NOTES: 06-08-16699 TAKING WELLBUTRIN XL 150 MG TABLET EXTENDED RELEASE 24 HOUR 1 TABLET IN THE MORNING ORALLY ONCE A DAY, NOTES: 06-08-16699 TAKING CONCERTA 36 MG TABLET EXTENDED RELEASE 1 TABLET IN THE MORNING ORALLY TWICE A DAY, NOTES: 06-08-16699 NOT-TAKING CYCLOBENZAPRINE HCL 5 MG TABLET 1 TABLET ORALLY Q8H PRN MDD2 NOT-TAKING CYCLOBENZAPRINE HCL 5 MG TABLET 1 TABLET ORALLY THREE TIMES A DAY NOT-TAKING AMOXICILLIN 500 MG TABLET 2 TABLETS ORALLY ONCE A DAY NOT-TAKING CHLORHEXIDINE GLUCONATE 0.12 % SOLUTION 15 ML MOUTH/THROAT, SWISH AND SPIT BID PAST MEDICAL HISTORY DEPRESSION/ANXIETY/DYSTHYMIA ADD MIGRAINE HEADACHES ALLERGIC RHINITIS/CONJUNCTIVITIS (ON ALLERGY INJECTIONS) IRON DEFICIENCY HEMORRHOIDS/INT CONSTIPATION HTN VITAMIN D DEFICIENCY STRESS INCONTINENCE H/O PE/INFARCT IDIOPATHIC HYPERSOMNIA (NEURO.) BACK PAIN CARPAL TUNNEL BILATERAL BONE SPURS CERVICAL AREA ALLERGIES ENVIRONMENTAL: NASAL CONGESTION: ALLERGY MOLD: NASAL CONGESTION: ALLERGY DOGS AND CATS: UNSURE OF REACTION: ALLERGY PINEAPPLE FLAVOR: TONGUE SWELLING: ALLERGY PT STATES SHE GETS ALLERGY INJECTIONS BANANA (DIAGNOSTIC): TONGUE SWELLING: ALLERGY STRAWBERRY (DIAGNOSTIC): TONGUE SWELLING: ALLERGY VITAL SIGNS WT 200 LBS, HT 66 IN, BMI 32.28 INDEX, BP 125/80 MM HG, HR 73 /MIN, RR 16 /MIN, TEMP 98.3 F, OXYGEN SAT % 97%, SAFE IN ENV? (Y/N) YES, NA INITIALS SC 12:02, REVIEWED BY: KG. ASSESSMENTS SPONDYLOSIS WITHOUT MYELOPATHY OR RADICULOPATHY, LUMBAR REGION - M47.816 (PRIMARY) SPONDYLOSIS WITHOUT MYELOPATHY OR RADICULOPATHY, LUMBOSACRAL REGION - M47.817 PROCEDURES PN LUMBAR FACET BLOCK DIAGNOSTIC PRE PROCEDURE DIAGNOSIS 1. LUMBAR SPONDYLOSIS. 2. LUMBOSACRAL SPONDYLOSIS. POST PROCEDURE DIAGNOSIS 1. LUMBAR SPONDYLOSIS. 2. LUMBOSACRAL SPONDYLOSIS. PROCEDURE LEFT L4-L5, L5-S1 FACET DIAGNOSTIC BLOCK NUMBER #[address] WOOD MARMOLEJO INTELLIGENCE CHIEF NONE ANESTHESIA LOCAL PRE PROCEDURE NOTE 40 YEAR-OLD PATIENT WITH HISTORY OF CHRONIC LOW BACK PAIN. I EVALUATED THE PATIENT AND REVIEWED THE CHART. I WENT OVER THE RISKS, ALTERNATIVES, AND BENEFITS ASSOCIATED WITH THIS PROCEDURE. THE PATIENT WOULD LIKE TO PROCEED AND GAVE CONSENT TO PERFORM THE PROCEDURE. AGREED WITH THE PATIENT WE ARE DOING THIS PROCEDURE TO DETERMINE IF THE PATIENT IS A CANDIDATE FOR A RADIOFREQUENCY ABLATION OF THE FACETS JOINTS. THE PATIENT DENIES UNEXPLAINABLE WEIGHT LOSS, FEVER, CHILLS, OR NEW CHANGES IN URINARY OR BOWEL CONTROL. DESCRIPTION OF PROCEDURE THE PATIENT WAS BROUGHT TO THE PROCEDURE ROOM AND PLACED IN THE PRONE POSITION. THE LUMBOSACRAL AREA WAS CLEANED WITH CHLORAPREP SOLUTION AND DRAPED ASEPTICALLY. THE PROCEDURE WAS DONE UNDER STERILE CONDITIONS. I CHECKED LATERALITY AND THE LEVEL WHERE THE PROCEDURE WAS GOING TO BE PERFORMED WITH THE PATIENT AND THE SUPPORTING STAFF AT THE MOMENT OF THE TIME OUT IN THE PROCEDURE ROOM. UNDER FLUOROSCOPIC GUIDANCE, TARGETS WERE SELECTED AT THE INTERSECTION OF THE LEFT TRANSVERSE PROCESS OF L4, L5 AND ALA OF S1 WITH ITS RESPECTIVE SUPERIOR ARTICULAR PROCESS. LIDOCAINE WAS USED TO NUMB THE SKIN AND THE SUBCUTANEOUS TISSUE BELOW IT. SPINAL NEEDLE, 22-GAUGE WAS ADVANCED UNDER FLUOROSCOPIC GUIDANCE AND FOLLOWING PATIENT FEEDBACK UNTIL THE TARGETS WERE REACHED. POSITION OF THE NEEDLES WAS VERIFIED WITH AP AND LATERAL VIEWS. AFTER PROPER POSITION OF THE NEEDLES WAS ACHIEVED, ISOVUE-M DYE 30% 0.1 ML WAS INJECTED AT EACH SITE SHOWING ADEQUATE SPREAD OF THE DYE. THEN A SOLUTION OF 0.4 ML OF BUPIVACAINE 0.25%, WAS INJECTED AT EACH SITE. THERE WAS NO EVIDENCE OF BLOOD, PARESTHESIA OR CEREBROSPINAL FLUID DURING THE PROCEDURE. THE PATIENT WAS SENT TO THE RECOVERY ROOM. THE PATIENT WAS MOVING THE EXTREMITIES AND DOING WELL. THERE WAS NO COMPLICATION DURING THE PROCEDURE. FLUOROSCOPY TIME WAS 21 SECONDS. POST PROCEDURE NOTE THE PATIENT WILL DOCUMENT HIS PAIN LEVEL AND RESPONSE TO THIS PROCEDURE EVERY 30 MINUTES. THE PATIENT WILL BE SEEN IN A FOLLOW UP IN THE NEXT FEW WEEKS. FURTHER DETERMINATION FOR HIS CASE WILL BE DONE AT THE NEXT VISIT. INSTRUCTIONS WERE GIVEN, QUESTIONS WERE ANSWERED, AND THE PATIENT EXPRESSED UNDERSTANDING AND AGREED WITH THE PLAN. I, KAMILLE FRAUSTO, DOCUMENTED THE ABOVE INFORMATION ACTING A SCRIBE FOR DR. MARMOLEJO. I HAVE REVIEWED THE ABOVE DOCUMENT, WRITTEN BY KAMILLE FRAUSTO SCRIBE AND I VERIFY THAT IT IS ACCURATE. DIAGNOSTIC IMAGING [facility] FACET BLOCK (PAIN)[id number] PROCEDURE CODES 11676 INJ PARAVERT F JNT L/S 1 LEV 05872 INJ PARAVERT F JNT L/S 2 LEV 6045F RADXPS IN END [id number] PXD DISPOSITION & COMMUNICATION FOLLOW UP 3 WEEKS ELECTRONICALLY SIGNED BY WOOD MARMOLEJO MD ON 06/18/2016 AT 04:23 PM EDT DISCLAIMER : THIS IS A VISIT SUMMARY EXTRACTED FROM THE [employer] CHART. IT IS NOT A COPY OF THE [employer] PROGRESS NOTE. MTDD
== END ==
LOC: M PAIN 11:40
PROVIDERS: ATTEND Anesthesiology
DX: G89.29 Other chronic pain (principal); M47.816 Spondylosis without myelopathy or radiculopathy, lumbar region; M47.817 Spondylosis without myelopathy or radiculopathy, lumbosacral region; M54.5 Low back pain; F41.9 Anxiety disorder, unspecified; F32.9 Major depressive disorder, single episode, unspecified; F34.1 Dysthymic disorder; G43.909 Migraine, unspecified, not intractable, without status migrainosus; I10 Essential (primary) hypertension; E55.9 Vitamin D deficiency, unspecified; D50.9 Iron deficiency anemia, unspecified; Z79.899 Other long term (current) drug therapy; Z91.09 Other allergy status, other than to drugs and biological substances; Z91.018 Allergy to other foods; J30.81 Allergic rhinitis due to animal (cat) (dog) hair and dander; J30.89 Other allergic rhinitis
CPT/HCPCS: 64493; 64494; Q9967

== ENCOUNTER → 2016-06-29 | Outpatient (CLI) | payer OTHER ==
[~2016-06-29] MED LIST changes: +AMPHET/DEXTR; -BUPIVACAINE HCL 0.25% 30 ML VIAL As Ordered ONE; +CONC36TA4 PO; +CYCL5TA; -ISOVUE-M 300 61% 15ML VIAL (Q9967) As Ordered ONE; -LIDOCAINE 1% SDV INJ 30 ML VIAL As Ordered ONE; +METH18TA2; +NAPR500T PO; +PERC5TAB6 PO; +SUMA100T2; +TROK1CAP; +VALI5TAB PO
--- NOTE | 2016-07-13 00:36 | ECWPNPC ---
PATIENT NAME: PAMELLA LONDONO : 1975 GENDER: FEMALE VISIT DATE: 06/29/2016 DISCHARGE DATE: 06/29/16 1226 VISIT LOCKED DATE TIME: PHYSICIAN: ZANE FOURNIER RESOURCE: ZANE FOURNIER REASON FOR APPOINTMENT 1. BACK- HISTORY OF PRESENT ILLNESS HISTORY OF PRESENT ILLNESS: HER FOR POST PROCEDURE F/U.HAD DIAGNOSTIC LEFT L4/5-L5/S1 ON 06-09-16.FORGOT PAIN DIARY BUT REPORTS >50% IMPROVEMENT IN LEFT LOW BACK PAIN X3 WEEKS AND NOW PAIN HAS RETURNED TO BASELINE.RATING PAIN VAS 3/10.DISCUSSED TREATMENT PLAN.DISCUSSED RADIOFREQUENCY PROCEDURE. PAIN THE PATIENT DESCRIBES THE PAIN... FALL RISK SCREENING: SCREENING :NO FALLS IN THE PAST YEAR CURRENT MEDICATIONS TAKING IRON 325 (65 FE) MG TABLET 1 TABLET ORALLY ONCE A DAY NEEDED TAKING TROKENDI XR 200 MG CAPSULE EXTENDED RELEASE 24 HOUR ORAL ONCE DAILY TAKING PROBIOTIC CAPSULE 1 CAP ORALLY DAILY TAKING SUMATRIPTAN SUCCINATE 100 MG TABLET 1 TABLET NEEDED ONE TIME ORALLY ONCE A DAY TAKING CYMBALTA 60 MG CAPSULE DELAYED RELEASE PARTICLES 1 CAPSULE ORALLY ONCE A DAY TAKING WELLBUTRIN XL 150 MG TABLET EXTENDED RELEASE 24 HOUR 1 TABLET IN THE MORNING ORALLY ONCE A DAY TAKING CONCERTA 36 MG TABLET EXTENDED RELEASE 1 TABLET IN THE MORNING ORALLY TWICE A DAY NOT-TAKING CYCLOBENZAPRINE HCL 5 MG TABLET 1 TABLET ORALLY Q8H PRN MDD2 NOT-TAKING CYCLOBENZAPRINE HCL 5 MG TABLET 1 TABLET ORALLY THREE TIMES A DAY NOT-TAKING AMOXICILLIN 500 MG TABLET 2 TABLETS ORALLY ONCE A DAY NOT-TAKING CHLORHEXIDINE GLUCONATE 0.12 % SOLUTION 15 ML MOUTH/THROAT, SWISH AND SPIT BID MEDICATION LIST REVIEWED AND RECONCILED WITH THE PATIENT PAST MEDICAL HISTORY DEPRESSION/ANXIETY/DYSTHYMIA ADD MIGRAINE HEADACHES ALLERGIC RHINITIS/CONJUNCTIVITIS (ON ALLERGY INJECTIONS) IRON DEFICIENCY HEMORRHOIDS/INT CONSTIPATION HTN VITAMIN D DEFICIENCY STRESS INCONTINENCE H/O PE/INFARCT IDIOPATHIC HYPERSOMNIA (NEURO.) BACK PAIN CARPAL TUNNEL BILATERAL BONE SPURS CERVICAL AREA ALLERGIES ENVIRONMENTAL: NASAL CONGESTION: ALLERGY MOLD: NASAL CONGESTION: ALLERGY DOGS AND CATS: UNSURE OF REACTION: ALLERGY PINEAPPLE FLAVOR: TONGUE SWELLING: ALLERGY PT STATES SHE GETS ALLERGY INJECTIONS BANANA (DIAGNOSTIC): TONGUE SWELLING: ALLERGY STRAWBERRY (DIAGNOSTIC): TONGUE SWELLING: ALLERGY REVIEW OF SYSTEMS CONSTITUTIONAL: ANY CHANGE IN YOUR MEDICAL CONDITION? NO . CHILLS NO . FEVER NO . INFECTION: DO YOU HAVE NEW INFECTIONS? NO . DO YOU HAVE HISTORY OF MRSA? NO . MUSCULOSKELETAL: ANY NEW PATTERNS OF PAIN OR NUMBNESS? NO . GASTROENTEROLOGY: ANY NEW CHANGE IN BOWEL CONTROL? NO . GENITOURINARY: ANY NEW CHANGE IN BLADDER CONTROL? NO . IS THERE A CHANCE YOU COULD BE ? NO . HEMATOLOGY/LYMPH: DO YOU TAKE ANY BLOOD THINNERS? (FOR EXAMPLE- COUMADIN, PLAVIX, AGGRENOX, PLATEL, PRADAXA, OR XARELTO) NO . WHEN WAS YOUR LAST DOSE? DATE: TIME: . NEUROLOGY: HAVE YOU FALLEN IN THE PAST 6 MONTHS? NO . ANY NEW EXTREMITY NUMBNESS OR WEAKNESS? NO . CARDIOLOGY: DO YOU HAVE A PACEMAKER OR DEFIBRILLATOR? NO . RESPIRATORY: HAVE YOU BEEN SICK IN THE PAST WEEK? NO . FEVER NO . FLU LIKE SYMPTOMS? NO . COUGH NO . INTEGUMENTARY: DO YOU HAVE ANY RASHES OR OPEN SORES? NO . ALLERGIC/IMMUNO: ARE YOU ALLERGIC TO SHELLFISH OR IV DYE? NO . ANY NEW ALLERGIES? NO . PSYCHIATRIC: DO YOU HAVE THOUGHTS OF HURTING YOURSELF OR SOMEONE ELSE? NO . ARE YOU ABUSED, NEGLECTED, OR IN AN UNSAFE ENVIRONMENT? NO . ENDOCRINOLOGY: ARE YOU DIABETIC? NO . OTHER: DO YOU NEED ANY PRESCRIPTIONS? NO . IF YES, PLEASE LIST: ____ . ANY NEW PROBLEMS WITH YOUR MEDICATIONS? NO . WHEN DID YOU LAST EAT? ____ . WHEN DID YOU LAST DRINK? ____ . WHAT DID YOU LAST DRINK? ____ . NAME OF PERSON DRIVING YOU HOME? ____ . DO YOU HAVE ANY OTHER QUESTIONS OR CONCERNS SHE FORGOT THE PAIN DIARY BUT STATES THE DIAGNOSTIC FACET BLOCK #1 WORKED FOR 14-15 DAYS . REVIEWED BY: PROVIDER: ZANE CRAWFORD . VITAL SIGNS WT 211.0 LBS, HT 66 IN, BMI 34.05 INDEX, BP 144/78 MM HG, HR 73 /MIN, RR 16 /MIN, TEMP 97.6 F, OXYGEN SAT % 100%, NA INITIALS TL 1143. EXAMINATION GENERAL EXAMINATION: LUNGS:LUNG SOUNDS ARE CLEAR. HEART:HEART RATE REGULAR. MUSCULOSKELETAL:*, MUSCLE STRENGTH TESTING 5/5 BILATERAL., PALPATION: NEGATIVE FOR PAIN OVER L/S SPINE. NEGATIVE FOR PAIN OVER L/S PARSPINALS.ROJM SPINE FULL WITHOUT PAIN. DIAGNOSTIC:MRI L/S [id number]-REVIEWED. ASSESSMENTS LUMBAR FACET ARTHROPATHY - M12.88 (PRIMARY) MYOFASCIAL PAIN - M79.1 TREATMENT LUMBAR FACET ARTHROPATHY INJECTION FACET JOINT/NERVE ZANE QUEEN 06/29/2016 12:14:32 PM > L4/5-L5/S1 LEFT DIAGNOSTIC #2 PREVENTIVE MEDICINE PAIN CLINIC TEACHING: PROCEDURE TEACHING PT. DECLINED PRINTED INFORMATION ON DIAGNOSTIC FACET BLOCK STATING SHE IS FAMILIAR WITH THE PROCEDURE. PRE-PROCEDURE INSTRUCTIONS REVIEWED WITH PT. AND SHE VERBALIZED UNDERSTANDING. AD. PROCEDURE CODES FA211 ESTABILISHED PATIENT [facility] CHARGE DISPOSITION & COMMUNICATION FOLLOW UP 2WK POST (REASON: L4/5-L5/S1 DIAGNOSTIC #2 FACET BLOCK) ELECTRONICALLY SIGNED BY TY FORREST ON 07/12/2016 AT 04:59 PM EDT DISCLAIMER : THIS IS A VISIT SUMMARY EXTRACTED FROM THE [employer] CHART. IT IS NOT A COPY OF THE [employer] PROGRESS NOTE. TANISHA
== END | disposition home or self-care (01) ==
LOC: M PAIN 11:00
PROVIDERS: ATTEND Nurse Practitioner Family
DX: G89.29 Other chronic pain (principal); M12.88 Other specific arthropathies, not elsewhere classified, other specified site; M79.1 Myalgia; I10 Essential (primary) hypertension; F41.9 Anxiety disorder, unspecified; F33.9 Major depressive disorder, recurrent, unspecified; F90.9 Attention-deficit hyperactivity disorder, unspecified type; E55.9 Vitamin D deficiency, unspecified; G43.909 Migraine, unspecified, not intractable, without status migrainosus; J30.89 Other allergic rhinitis; Z79.899 Other long term (current) drug therapy; Z91.018 Allergy to other foods; J30.81 Allergic rhinitis due to animal (cat) (dog) hair and dander

== ENCOUNTER 2016-07-03 17:50 | Emergency (ER) | payer OTHER ==
[~2016-07-03] VITALS: Ht 167.6 cm; Wt 90.7 kg
[2016-07-03] MEDS ORDERED: CYCL5TA (18:06)
[2016-07-03] MEDS ORDERED: AMPHET/DEXTR (18:06)
[2016-07-03] MEDS ORDERED: METH18TA2 (18:06)
[2016-07-03] MEDS ORDERED: SUMA100T2 (18:06)
[2016-07-03] MEDS ORDERED: TROK1CAP (18:06)
[2016-07-03] MEDS ORDERED: CONC36TA4 PO (18:06)
--- NOTE | 2016-07-03 18:32 | ECGEPIP ---
Stationary ECG Study [facility] - ED Test Date: 2016-07-03 Pat Name: PAMELLA LONDONO Department: Room: - Gender: F Warehouse Delivery Driver: rn : 1975 Requested By: MARK Nevarez Order Number: [id number] Reading MD: Chuy Martinez Measurements Intervals [place] Rate: 65 P: 30 RI: 175 QRS: 51 QRSD: 83 T: 38 QT: 397 QTc: 414 Interpretive Statements SINUS RHYTHM BENIGN EARLY REPOLARIZATION NO PRIORS Electronically Signed On 07-03-2016 18:32:09 EDT by Chuy Martinez
[2016-07-03 19:32] LABS: INR 0.98
[2016-07-03 19:33] LABS: CONTROL LINE HCG INT CTR LINE PRESENT
[2016-07-03 19:34] LABS: BASO # 0.1 K/mm3 (0.0-0.2); BASO % 0.6 % (0.0-1.0); EOS # 0.1 K/mm3 (0.0-0.50); EOS % 1.2 % (0.0-3.0); LARGE UNSTAINED CELL # 0.2 K/mm3 (0.0-0.4); LARGE UNSTAINED CELL % 1.8 % (0.0-4.0); LYMPH # 2.5 K/mm3 (1.5-4.5); LYMPH % 22.6 % (24.0-44.0); MEAN CORPUSCULAR HEMOGLOBIN 29.9 pg (27.0-33.0); MEAN CORPUSCULAR HGB CONC 33.4 g/dl (32.0-36.5); MEAN CORPUSCULAR VOLUME 89.5 fl (80.0-96.0); MONO # 0.6 K/mm3 (0.0-0.8); MONO % 5.4 % (0.0-5.0); NEUTROPHILS # 7.2 K/mm3 (1.8-7.7); NEUTROPHILS % 68.4 % (36.0-66.0); PLATELET COUNT, AUTOMATED 304 k/mm3 (150-450); RED CELL DISTRIBUTION WIDTH 12.9 % (11.5-14.5); WHITE BLOOD COUNT 10.4 K/mm3 (4.0-10.0)
[2016-07-03 19:41] LABS: ALBUMIN 3.6 GM/DL (3.2-5.2); ALBUMIN/GLOBULIN RATIO 0.88 (1.00-1.93); ALKALINE PHOSPHATASE 99 U/L (45-117); ALT/SGPT 32 U/L (12-78); ANION GAP 6 MEQ/L (8-16); AST/SGOT 17 U/L (15-37); BILIRUBIN,DIRECT 0.1 MG/DL (0.0-0.2); BILIRUBIN,TOTAL 0.3 MG/DL (0.2-1.0); BLOOD UREA NITROGEN 17 MG/DL (7-18); CALCIUM LEVEL 8.7 MG/DL (8.5-10.1); CARBON DIOXIDE LEVEL 28 MEQ/L (21-32); CHLORIDE LEVEL 103 MEQ/L (98-107); CREATININE FOR GFR 0.84 MG/DL (0.55-1.02); GLOMERULAR FILTRATION RATE > 60.0 (>58); GLUCOSE, FASTING 87 MG/DL (70-105); POTASSIUM SERUM 3.9 MEQ/L (3.5-5.1); SODIUM LEVEL 137 MEQ/L (136-145); TOTAL PROTEIN 7.7 GM/DL (6.4-8.2)
[2016-07-03] MEDS ORDERED: MORPHINE 4 MG/ML 1ML SYRINGE IV PRN (19:45)
[2016-07-03] MEDS ORDERED: ONDANSETRON 4MG/2ML VIAL (J2405) IV ONE (19:45)
[2016-07-03] MEDS ORDERED: NAPR500T PO (22:39)
[2016-07-03] MEDS ORDERED: PERC5TAB6 PO (22:39)
[2016-07-03] MEDS ORDERED: VALI5TAB PO (22:39)
[2016-07-03] MEDS ORDERED: OXYCODONE/APAP 5MG/325MG(BULK FOR ED) 1 TABLET PO ONE (22:45)
[2016-07-03] MEDS ORDERED: KETOROLAC 30 MG/ML VIAL (J1885) IV ONE (22:45)
[2016-07-03 22:47] VITALS: BP 132/88
[2016-07-03] MEDS ORDERED: diazePAM 5 MG TAB PO ONE (23:15)
[2016-07-03] MEDS ORDERED: KETOROLAC TROMETHAMINE 10 MG TAB PO ONE (23:15)
--- NOTE | 2016-07-04 01:19 | REP ---
Clinical: Chest pain . Comparison: None . Technique: PA and lateral. Findings: The mediastinum and cardiac silhouette are normal. The lung nuñez are clear and without acute consolidation, effusion, or pneumothorax. The skeletal structures are intact and normal. Impression: 1. No acute cardiopulmonary process. Signed by Will White MD 07/04/2016 01:10 A
== END 2016-07-03 23:16 | disposition home or self-care (01) ==
LOC: M ED 22:16
DX: R07.89 Other chest pain (principal); M54.9 Dorsalgia, unspecified
CPT/HCPCS: 71020; 80048; 80076; 82550; 82553; 83690; 84703; 85025; 85379; 85610; 85730; 93005; 93041; 96374; 96375; 99284; J2405

== ENCOUNTER → 2016-07-19 | Outpatient (CLI) | payer OTHER ==
[~2016-07-19] MED LIST changes: +BUPIVACAINE HCL 0.25% 30 ML VIAL As Ordered ONE; +ISOVUE-M 300 61% 15ML VIAL (Q9967) As Ordered ONE; +LIDOCAINE 1% SDV INJ 30 ML VIAL As Ordered ONE
--- NOTE | 2016-07-19 14:31 | REP ---
PARTIAL LUMBAR SPINE SERIES: Single view. HISTORY: Facet block for pain. 21 seconds of fluoroscopy time is reported. FINDINGS: A single fluoroscopically obtained intraprocedural spot radiograph of the lumbar spine documents various needle positions and contrast injections associated with lumbar spine facet injection procedure. Signed by Jah Mcclure MD 07/19/2016 03:49 P
--- NOTE | 2016-08-01 00:57 | ECWPNPC ---
PATIENT NAME: PAMELLA LONDONO : 1975 GENDER: FEMALE VISIT DATE: 07/19/2016 DISCHARGE DATE: 07/19/16 1335 VISIT LOCKED DATE TIME: PHYSICIAN: WOOD MARMOLEJO RESOURCE: WOOD MARMOLEJO REASON FOR APPOINTMENT 1. LUMBAR FACET HISTORY OF PRESENT ILLNESS HISTORY OF PRESENT ILLNESS: PAIN THE PATIENT DESCRIBES THE PAIN... FALL RISK SCREENING: SCREENING :NO FALLS IN THE PAST YEAR CURRENT MEDICATIONS TAKING IRON 325 (65 FE) MG TABLET 1 TABLET ORALLY ONCE A DAY NEEDED, NOTES: 07-17-16 TAKING TROKENDI XR 200 MG CAPSULE EXTENDED RELEASE 24 HOUR ORAL ONCE DAILY, NOTES: 07-18-16 2100 TAKING PROBIOTIC CAPSULE 1 CAP ORALLY DAILY, NOTES: NONE RECENT TAKING SUMATRIPTAN SUCCINATE 100 MG TABLET 1 TABLET NEEDED ONE TIME ORALLY ONCE A DAY, NOTES: NONE NEEDED TAKING CYMBALTA 60 MG CAPSULE DELAYED RELEASE PARTICLES 1 CAPSULE ORALLY ONCE A DAY, NOTES: 07-18-16 2100 TAKING WELLBUTRIN XL 150 MG TABLET EXTENDED RELEASE 24 HOUR 1 TABLET IN THE MORNING ORALLY ONCE A DAY, NOTES: 07-18-16 AM TAKING CONCERTA 36 MG TABLET EXTENDED RELEASE 1 TABLET IN THE MORNING ORALLY TWICE A DAY, NOTES: 07-19-16 0800 TAKING PERCOCET 5-325 MG TABLET 1 TABLET NEEDED ORALLY EVERY 6 HRS, NOTES: NONE RECENT TAKING NORCO 5-325 MG TABLET 1 TABLET NEEDED ORALLY EVERY 6 HRS, NOTES: NONE RECENT TAKING KETOCONAZOLE 2 % CREAM APPLY THIN LAYER TO LEFT ARM AND RIGHT FOOT EXTERNALLY ONCE A DAY, NOTES: NONE RECENT MEDICATION LIST REVIEWED AND RECONCILED WITH THE PATIENT PAST MEDICAL HISTORY DEPRESSION/ANXIETY/DYSTHYMIA ADD MIGRAINE HEADACHES ALLERGIC RHINITIS/CONJUNCTIVITIS (ON ALLERGY INJECTIONS) IRON DEFICIENCY HEMORRHOIDS/INT CONSTIPATION HTN VITAMIN D DEFICIENCY STRESS INCONTINENCE H/O PE/INFARCT IDIOPATHIC HYPERSOMNIA (NEURO.) BACK PAIN CARPAL TUNNEL BILATERAL BONE SPURS CERVICAL AREA ALLERGIES ENVIRONMENTAL: NASAL CONGESTION: ALLERGY MOLD: NASAL CONGESTION: ALLERGY DOGS AND CATS: UNSURE OF REACTION: ALLERGY PINEAPPLE FLAVOR: TONGUE SWELLING: ALLERGY PT STATES SHE GETS ALLERGY INJECTIONS BANANA (DIAGNOSTIC): TONGUE SWELLING: ALLERGY STRAWBERRY (DIAGNOSTIC): TONGUE SWELLING: ALLERGY REVIEW OF SYSTEMS CONSTITUTIONAL: ANY CHANGE IN YOUR MEDICAL CONDITION? NO . CHILLS NO . FEVER NO . INFECTION: DO YOU HAVE NEW INFECTIONS? NO . DO YOU HAVE HISTORY OF MRSA? NO . MUSCULOSKELETAL: ANY NEW PATTERNS OF PAIN OR NUMBNESS? NO . GASTROENTEROLOGY: ANY NEW CHANGE IN BOWEL CONTROL? NO . GENITOURINARY: ANY NEW CHANGE IN BLADDER CONTROL? NO . IS THERE A CHANCE YOU COULD BE ? NO . HEMATOLOGY/LYMPH: DO YOU TAKE ANY BLOOD THINNERS? (FOR EXAMPLE- COUMADIN, PLAVIX, AGGRENOX, PLATEL, PRADAXA, OR XARELTO) NO . WHEN WAS YOUR LAST DOSE? DATE: TIME: . NEUROLOGY: HAVE YOU FALLEN IN THE PAST 6 MONTHS? NO . ANY NEW EXTREMITY NUMBNESS OR WEAKNESS? NO . CARDIOLOGY: DO YOU HAVE A PACEMAKER OR DEFIBRILLATOR? NO . RESPIRATORY: HAVE YOU BEEN SICK IN THE PAST WEEK? NO . FEVER NO . FLU LIKE SYMPTOMS? NO . COUGH NO . INTEGUMENTARY: DO YOU HAVE ANY RASHES OR OPEN SORES? NO . ALLERGIC/IMMUNO: ARE YOU ALLERGIC TO SHELLFISH OR IV DYE? NO . ANY NEW ALLERGIES? NO . PSYCHIATRIC: DO YOU HAVE THOUGHTS OF HURTING YOURSELF OR SOMEONE ELSE? NO . ARE YOU ABUSED, NEGLECTED, OR IN AN UNSAFE ENVIRONMENT? NO . ENDOCRINOLOGY: ARE YOU DIABETIC? NO . OTHER: DO YOU NEED ANY PRESCRIPTIONS? NO . IF YES, PLEASE LIST: ____ . ANY NEW PROBLEMS WITH YOUR MEDICATIONS? NO . WHEN DID YOU LAST EAT? 07-18-16 2100 . WHEN DID YOU LAST DRINK? 07-19-16 0800 . WHAT DID YOU LAST DRINK? WATER . NAME OF PERSON DRIVING YOU HOME? BERENICE MARINO . DO YOU HAVE ANY OTHER QUESTIONS OR CONCERNS YES, I HAD STARTED TO DEVELOP MUSCLE SPASMS OF UPPER BACK. IT HAPPENED ONE TIME BEFORE, AND LASTED A WHOLE WEEK. NOT SURE IT IT CORRILATES TO ANY OF MY CURRENT PROBLEMS NOW? . REVIEWED BY: PROVIDER: . VITAL SIGNS WT 209 LBS, HT 66 IN, BMI 33.73 INDEX, BP 131/95 MM HG, HR 79 /MIN, RR 16 /MIN, TEMP 97.6 F, OXYGEN SAT % 96%, NA INITIALS SC 11:26, REVIEWED BY: CM. ASSESSMENTS SPONDYLOSIS WITHOUT MYELOPATHY OR RADICULOPATHY, LUMBAR REGION - M47.816 (PRIMARY) SPONDYLOSIS WITHOUT MYELOPATHY OR RADICULOPATHY, LUMBOSACRAL REGION - M47.817 PROCEDURES PN LUMBAR FACET BLOCK DIAGNOSTIC PRE PROCEDURE DIAGNOSIS LUMBAR SPONDYLOSIS, LUMBOSACRAL SPONDYLOSIS POST PROCEDURE DIAGNOSIS LUMBAR SPONDYLOSIS, LUMBOSACRAL SPONDYLOSIS PROCEDURE LEFT L4-L5 AND LEFT L5-S1 FACET BLOCK DIAGNOSTIC NUMBER [address] WOOD MARMOLEJO AIR EXPORT COORDINATOR NONE ANESTHESIA LOCAL PRE PROCEDURE NOTE THE PATIENT WITH HISTORY OF CHRONIC LOW BACK PAIN. I EVALUATED THE PATIENT AND REVIEWED THE CHART. I WENT OVER THE RISKS, ALTERNATIVES, AND BENEFITS ASSOCIATED WITH THIS PROCEDURE. THE PATIENT WOULD LIKE TO PROCEED AND GAVE CONSENT TO PERFORM THE PROCEDURE. AGREED WITH THE PATIENT WE ARE DOING THIS PROCEDURE TO DETERMINE IF THE PATIENT IS A CANDIDATE FOR A RADIOFREQUENCY ABLATION OF THE FACETS JOINTS. THE PATIENT DENIES UNEXPLAINABLE WEIGHT LOSS, FEVER, CHILLS, OR NEW CHANGES IN URINARY OR BOWEL CONTROL DESCRIPTION OF PROCEDURE THE PATIENT WAS BROUGHT TO THE PROCEDURE ROOM AND PLACED IN THE PRONE POSITION. THE LUMBOSACRAL AREA WAS CLEANED WITH CHLORAPREP SOLUTION AND DRAPED ASEPTICALLY. THE PROCEDURE WAS DONE UNDER STERILE CONDITIONS. I CHECKED LATERALITY AND THE LEVEL WHERE THE PROCEDURE WAS GOING TO BE PERFORMED WITH THE PATIENT AND THE SUPPORTING STAFF AT THE MOMENT OF THE TIME OUT IN THE PROCEDURE ROOM. UNDER FLUOROSCOPIC GUIDANCE, TARGETS WERE SELECTED AT THE INTERSECTION OF THE LEFT TRANSVERSE PROCESS OF L4, L5 AND ALA OF S1 WITH ITS RESPECTIVE SUPERIOR ARTICULAR PROCESS. LIDOCAINE WAS USED TO NUMB THE SKIN AND THE SUBCUTANEOUS TISSUE BELOW IT. SPINAL NEEDLE, 22-GAUGE WAS ADVANCED UNDER FLUOROSCOPIC GUIDANCE AND FOLLOWING PATIENT FEEDBACK UNTIL THE TARGETS WERE REACHED. POSITION OF THE NEEDLES WAS VERIFIED WITH AP AND LATERAL VIEWS. AFTER PROPER POSITION OF THE NEEDLES WAS ACHIEVED, ISOVUE-M DYE 30% 0.1 ML WAS INJECTED AT EACH SITE SHOWING ADEQUATE SPREAD OF THE DYE. THEN A SOLUTION OF 0.4 ML OF BUPIVACAINE 0.25% WAS INJECTED AT EACH SITE. THERE WAS NO EVIDENCE OF BLOOD, PARESTHESIA OR CEREBROSPINAL FLUID DURING THE PROCEDURE. THE PATIENT WAS SENT TO THE RECOVERY ROOM. THE PATIENT WAS MOVING THE EXTREMITIES AND DOING WELL. THERE WAS NO COMPLICATION DURING THE PROCEDURE. FLUOROSCOPY TIME WAS 21 SECONDS POST PROCEDURE NOTE THE PATIENT WILL DOCUMENT HIS PAIN LEVEL AND RESPONSE TO THIS PROCEDURE EVERY 30 MINUTES. THE PATIENT WILL BE SEEN IN A FOLLOW UP IN THE NEXT FEW WEEKS. FURTHER DETERMINATION FOR HIS CASE WILL BE DONE AT THE NEXT VISIT. INSTRUCTIONS WERE GIVEN, QUESTIONS WERE ANSWERED, AND THE PATIENT EXPRESSED UNDERSTANDING AND AGREED WITH THE PLAN. I, MAX KENDRICK, DOCUMENTED THE ABOVE INFORMATION ACTING A SCRIBE FOR DR. MARMOLEJO. I HAVE REVIEWED THE ABOVE DOCUMENT, WRITTEN BY MAX AMIN AND I VERIFY THAT IT IS ACCURATE DIAGNOSTIC IMAGING [facility] FACET BLOCK (PAIN)[id number] PROCEDURE CODES 02293 INJ PARAVERT F JNT L/S 1 LEV 60349 INJ PARAVERT F JNT L/S 2 LEV 6045F RADXPS IN END [id number] PXD DISPOSITION & COMMUNICATION FOLLOW UP 3 WEEKS ELECTRONICALLY SIGNED BY WOOD MARMOLEJO MD ON 07/31/2016 AT 09:35 PM EDT DISCLAIMER : THIS IS A VISIT SUMMARY EXTRACTED FROM THE [employer] CHART. IT IS NOT A COPY OF THE [employer] PROGRESS NOTE. MTDD
== END ==
LOC: M PAIN 11:00
PROVIDERS: ATTEND Anesthesiology
DX: G89.29 Other chronic pain (principal); M47.816 Spondylosis without myelopathy or radiculopathy, lumbar region; M47.817 Spondylosis without myelopathy or radiculopathy, lumbosacral region; M54.5 Low back pain; Z79.891 Long term (current) use of opiate analgesic; Z79.899 Other long term (current) drug therapy; Z91.018 Allergy to other foods; J30.89 Other allergic rhinitis; J30.81 Allergic rhinitis due to animal (cat) (dog) hair and dander
CPT/HCPCS: 64493; 64494; Q9967

== ENCOUNTER → 2016-07-26 | Outpatient (REF) | payer OTHER ==
[~2016-07-26] MED LIST changes: -BUPIVACAINE HCL 0.25% 30 ML VIAL As Ordered ONE; -ISOVUE-M 300 61% 15ML VIAL (Q9967) As Ordered ONE; -LIDOCAINE 1% SDV INJ 30 ML VIAL As Ordered ONE
== END ==
LOC: M SFHCLERA 10:18
PROVIDERS: ATTEND Physician Assistant
DX: R63.5 Abnormal weight gain (principal)

== ENCOUNTER → 2016-08-01 | Outpatient (CLI) | payer OTHER ==
[2016-08-02 11:27] LABS: MEAN CORPUSCULAR HEMOGLOBIN 29.6 pg (27.0-33.0); MEAN CORPUSCULAR VOLUME 89.6 fl (80.0-96.0); PLATELET COUNT, AUTOMATED 303 k/mm3 (150-450); WHITE BLOOD COUNT 12.4 K/mm3 (4.0-10.0)
[2016-08-02 11:33] LABS: ALBUMIN 3.5 GM/DL (3.2-5.2); ALBUMIN/GLOBULIN RATIO 0.88 (1.00-1.93); ALKALINE PHOSPHATASE 105 U/L (45-117); ALT/SGPT 21 U/L (12-78); ANION GAP 4 MEQ/L (8-16); AST/SGOT 13 U/L (15-37); BILIRUBIN,TOTAL 0.3 MG/DL (0.2-1.0); BLOOD UREA NITROGEN 17 MG/DL (7-18); CALCIUM LEVEL 8.9 MG/DL (8.5-10.1); CARBON DIOXIDE LEVEL 30 MEQ/L (21-32); CHLORIDE LEVEL 105 MEQ/L (98-107); CREATININE FOR GFR 1.01 MG/DL (0.55-1.02); GLOMERULAR FILTRATION RATE > 60.0 (>58); GLUCOSE, FASTING 89 MG/DL (70-105); POTASSIUM SERUM 4.8 MEQ/L (3.5-5.1); SODIUM LEVEL 139 MEQ/L (136-145); TOTAL PROTEIN 7.5 GM/DL (6.4-8.2)
== END ==
LOC: M LRY 14:49
PROVIDERS: ATTEND Psychiatry & Neurology Neurology
DX: R42 Dizziness and giddiness (principal); G43.009 Migraine without aura, not intractable, without status migrainosus; G44.229 Chronic tension-type headache, not intractable

== ENCOUNTER → 2016-08-09 | Outpatient (CLI) | payer OTHER ==
--- NOTE | 2016-08-10 00:37 | ECWPNPC ---
PATIENT NAME: PAMELLA LONDONO : 1975 GENDER: FEMALE VISIT DATE: 08/09/2016 DISCHARGE DATE: 08/09/16 1113 VISIT LOCKED DATE TIME: PHYSICIAN: ZANE FOURNIER RESOURCE: ZANE FOURNIER HISTORY OF PRESENT ILLNESS GENERAL: HERE FOR DIAGNOSTIC BLOCK #2,LEFT L4/5-L5/S1 POST PROCEDURE F/U.HOURLY PAIN DIARY IS REVIEWED.THIS IS SHOWING 100%IMPROVEMENT FOR 48 HR POST PROCEDURE THEN PAIN RETURNED TO BASELINE.RATING PAIN LEFT LOW BACK 2/10.DESCRIBES PAIN SHARP AND SHOOTING LEFT LOW BACK.PAIN IS AGGREVATED BY DOING LIGHT HOUSEWORK .RELIEVED SOMEWHAT WITH REST. CURRENT MEDICATIONS TAKING IRON 325 (65 FE) MG TABLET 1 TABLET ORALLY ONCE A DAY NEEDED TAKING TROKENDI XR 200 MG CAPSULE EXTENDED RELEASE 24 HOUR ORAL ONCE DAILY TAKING PROBIOTIC CAPSULE 1 CAP ORALLY DAILY TAKING SUMATRIPTAN SUCCINATE 100 MG TABLET 1 TABLET NEEDED ONE TIME ORALLY ONCE A DAY TAKING CYMBALTA 60 MG CAPSULE DELAYED RELEASE PARTICLES 1 CAPSULE ORALLY ONCE A DAY TAKING WELLBUTRIN XL 150 MG TABLET EXTENDED RELEASE 24 HOUR 1 TABLET IN THE MORNING ORALLY ONCE A DAY TAKING CONCERTA 36 MG TABLET EXTENDED RELEASE 1 TABLET IN THE MORNING ORALLY TWICE A DAY TAKING PERCOCET 5-325 MG TABLET 1 TABLET NEEDED ORALLY EVERY 6 HRS TAKING NORCO 5-325 MG TABLET 1 TABLET NEEDED ORALLY EVERY 6 HRS TAKING DIAZEPAM 5 MG TABLET (SCHEDULE IV DRUG) TAKE ONE TABLET BY MOUTH THREE TIMES A DAY NEEDED FOR BACK PAIN MAXIMUM DAILY DOSE 3 TABLETS ORAL NOT-TAKING KETOCONAZOLE 2 % CREAM APPLY THIN LAYER TO LEFT ARM AND RIGHT FOOT EXTERNALLY ONCE A DAY, NOTES: NONE RECENT MEDICATION LIST REVIEWED AND RECONCILED WITH THE PATIENT PAST MEDICAL HISTORY DEPRESSION/ANXIETY/DYSTHYMIA ADD MIGRAINE HEADACHES ALLERGIC RHINITIS/CONJUNCTIVITIS (ON ALLERGY INJECTIONS) IRON DEFICIENCY HEMORRHOIDS/INT CONSTIPATION HTN VITAMIN D DEFICIENCY STRESS INCONTINENCE H/O PE/INFARCT IDIOPATHIC HYPERSOMNIA (NEURO.) BACK PAIN CARPAL TUNNEL BILATERAL BONE SPURS CERVICAL AREA ALLERGIES ENVIRONMENTAL: NASAL CONGESTION: ALLERGY MOLD: NASAL CONGESTION: ALLERGY DOGS AND CATS: UNSURE OF REACTION: ALLERGY PINEAPPLE FLAVOR: TONGUE SWELLING: ALLERGY PT STATES SHE GETS ALLERGY INJECTIONS BANANA (DIAGNOSTIC): TONGUE SWELLING: ALLERGY STRAWBERRY (DIAGNOSTIC): TONGUE SWELLING: ALLERGY VITAL SIGNS WT 212.4 LBS, HT 66 IN, BMI 34.28 INDEX, BP 135/89 MM HG, HR 74 /MIN, RR 16 /MIN, TEMP 97.9 F, OXYGEN SAT % 96%, NA INITIALS TL 1043, REVIEWED BY: NL. EXAMINATION GENERAL EXAMINATION: GENERAL APPEARANCE:COMFORTABLE. PSYCHAFFECT NORMAL. LUNGS:LUNG [place] ARE CLEAR TO AUSCULTATION BILATERALLY. GOOD MOVEMENT OF AIR. HEART:S1, S2 IN A REGULAR RATE AND RHYTHM. NO SIGNIFICANT MURMURS, RUBS OR GALLOPS NOTED. LUMBAR SPINE/LOWER BACK: PALPATION:SPECIFIC PAIN WITH FACET LOADING LEFT L4/5-L5/S1. MOTOR SYSTEM:5/5 BLE. SENSORY EXAM:NORMAL BILATERAL LE. ASSESSMENTS LUMBAR FACET ARTHROPATHY - M12.88 (PRIMARY) MYOFASCIAL PAIN - M79.1 TREATMENT LUMBAR FACET ARTHROPATHY NOTES: REQUEST RADIOFREQUENCY LEFT L4/5-L5/S1 FROM INSURANCE,UNDERSTANDING RADIOFREQUENCY DENERVATION MATERIAL WAS PRINTED. PROCEDURE CODES FA211 ESTABILISHED PATIENT [facility] CHARGE DISPOSITION & COMMUNICATION FOLLOW UP 2WK POST (REASON: REQUEST RADIOFREQUENCY LEFT L4/5-L5/S1 FROM INSURANCE) ELECTRONICALLY SIGNED BY TY FORREST ON 08/09/2016 AT 03:33 PM EDT DISCLAIMER : THIS IS A VISIT SUMMARY EXTRACTED FROM THE [employer] CHART. IT IS NOT A COPY OF THE [employer] PROGRESS NOTE. TANISHA
== END ==
LOC: M PAIN 10:20
PROVIDERS: ATTEND Nurse Practitioner Family
DX: M12.88 Other specific arthropathies, not elsewhere classified, other specified site (principal); M79.1 Myalgia; Z79.891 Long term (current) use of opiate analgesic; Z79.899 Other long term (current) drug therapy; J30.89 Other allergic rhinitis; J30.81 Allergic rhinitis due to animal (cat) (dog) hair and dander; Z91.018 Allergy to other foods

== ENCOUNTER 2016-09-04 10:21 | Emergency (ER) | payer OTHER ==
[~2016-09-04] VITALS: Ht 167.6 cm; Wt 94.0 kg
[~2016-09-04 10:21] MED LIST changes: -CYCL5TA; +CYCL5TAB; +PERC5TAB12 PO; -PERC5TAB6 PO
[2016-09-04 11:12] LABS: BASO # 0.1 K/mm3 (0.0-0.2); BASO % 0.8 % (0.0-1.0); EOS # 0.2 K/mm3 (0.0-0.50); EOS % 1.6 % (0.0-3.0); LARGE UNSTAINED CELL # 0.2 K/mm3 (0.0-0.4); LARGE UNSTAINED CELL % 1.6 % (0.0-4.0); LYMPH # 2.2 K/mm3 (1.5-4.5); LYMPH % 20.4 % (24.0-44.0); MEAN CORPUSCULAR HEMOGLOBIN 29.2 pg (27.0-33.0); MEAN CORPUSCULAR HGB CONC 33.3 g/dl (32.0-36.5); MEAN CORPUSCULAR VOLUME 87.7 fl (80.0-96.0); MONO # 0.5 K/mm3 (0.0-0.8); MONO % 4.8 % (0.0-5.0); NEUTROPHILS % 70.9 % (36.0-66.0); PLATELET COUNT, AUTOMATED 285 k/mm3 (150-450); WHITE BLOOD COUNT 9.9 K/mm3 (4.0-10.0)
[2016-09-04 11:32] LABS: ANION GAP 5 MEQ/L (8-16); BLOOD UREA NITROGEN 15 MG/DL (7-18); CALCIUM LEVEL 9.3 MG/DL (8.5-10.1); CARBON DIOXIDE LEVEL 28 MEQ/L (21-32); CHLORIDE LEVEL 108 MEQ/L (98-107); CREATININE FOR GFR 0.93 MG/DL (0.55-1.02); GLOMERULAR FILTRATION RATE > 60.0 (>58); GLUCOSE, FASTING 97 MG/DL (70-105); POTASSIUM SERUM 4.4 MEQ/L (3.5-5.1); SODIUM LEVEL 141 MEQ/L (136-145)
--- NOTE | 2016-09-04 11:47 | REP ---
Coughing and wheezing. COMPARISON: 07/03/2016. FINDINGS: The superior mediastinal structures are midline. The cardiac silhouette is unremarkable in size, shape, and position. The diaphragmatic surfaces of the lungs are regular, and the costophrenic angles are clear. The pulmonary nñuez are clear. The imaged osseous structures are intact. IMPRESSION: There is no acute cardiopulmonary disease. Signed by Ej Oliver DO 09/04/2016 01:58 P
[2016-09-04] MEDS ORDERED: BENZ200C53 PO (12:18)
[2016-09-04] MEDS ORDERED: ALBU17IN INH (12:18)
[2016-09-04 12:23] VITALS: BP 155/89
== END 2016-09-04 12:28 | disposition home or self-care (01) ==
LOC: M ED 10:21
DX: R05 Cough (principal)

== ENCOUNTER → 2016-09-19 | Outpatient (CLI) | payer OTHER ==
[~2016-09-19] MED LIST changes: +ALBU17IN INH; +BENZ200C53 PO; +BUPIVACAINE HCL 0.25% 30 ML VIAL As Ordered ONE; +ISOVUE-M 300 61% 15ML VIAL (Q9967) As Ordered ONE; +LIDOCAINE 1% SDV INJ 30 ML VIAL As Ordered ONE; +TRIAMCINOLONE ACETONIDE SUSP 40 MG/ML VIAL (J3301) As Ordered ONE
--- NOTE | 2016-09-19 17:34 | REP ---
FACET BLOCK: The images were reviewed with Dr. Danielle. The patient has a history of chronic low back pain. The portable C-ARM was provided in the OR for Dr. Olsen for fluoroscopic guidance. 3 intraoperative fluoroscopic spot films were obtained for needle placement verification for left lumbar radiofrequency ablation. The films are on the PACs system and are available for review. 37 seconds of fluoroscopic time was utilized for this procedure. Reviewed by ROMAINE Guzman 09/20/2016 01:41 PEdited and Signed by Jon Danielle MD 09/21/2016 05:38 P
--- NOTE | 2016-10-05 00:13 | ECWPNPC ---
PATIENT NAME: PAMELLA LONDONO : 1975 GENDER: FEMALE VISIT DATE: 09/19/2016 DISCHARGE DATE: 09/19/16 1508 VISIT LOCKED DATE TIME: PHYSICIAN: WOOD MARMOLEJO RESOURCE: WOOD MARMOLEJO REASON FOR APPOINTMENT 1. RF HISTORY OF PRESENT ILLNESS HISTORY OF PRESENT ILLNESS: PAIN THE PATIENT DESCRIBES THE PAIN... FALL RISK SCREENING: SCREENING :NO FALLS IN THE PAST YEAR CURRENT MEDICATIONS TAKING IRON 325 (65 FE) MG TABLET 1 TABLET ORALLY ONCE A DAY NEEDED, NOTES: 09-18-16899 TAKING TROKENDI XR 200 MG CAPSULE EXTENDED RELEASE 24 HOUR ORAL ONCE DAILY, NOTES: 09-17-162099 TAKING PROBIOTIC CAPSULE 1 CAP ORALLY DAILY, NOTES: 09-18-16899 TAKING SUMATRIPTAN SUCCINATE 100 MG TABLET 1 TABLET NEEDED ONE TIME ORALLY ONCE A DAY, NOTES: 09-04-16 TAKING CYMBALTA 60 MG CAPSULE DELAYED RELEASE PARTICLES 1 CAPSULE ORALLY ONCE A DAY, NOTES: 09-18-16899 TAKING WELLBUTRIN XL 150 MG TABLET EXTENDED RELEASE 24 HOUR 1 TABLET IN THE MORNING ORALLY ONCE A DAY, NOTES: 09-18-16899 TAKING CONCERTA 36 MG TABLET EXTENDED RELEASE 1 TABLET IN THE MORNING ORALLY TWICE A DAY, NOTES: 09-19-16899 TAKING NORCO 5-325 MG TABLET 1 TABLET NEEDED ORALLY EVERY 6 HRS, NOTES: 09-09-16899 TAKING DIAZEPAM 5 MG TABLET (SCHEDULE IV DRUG) TAKE ONE TABLET BY MOUTH THREE TIMES A DAY NEEDED FOR BACK PAIN MAXIMUM DAILY DOSE 3 TABLETS ORAL , NOTES: 09-04-16899 TAKING OMEPRAZOLE 40 MG CAPSULE DELAYED RELEASE 1 CAPSULE ORALLY ONCE A DAY, NOTES: 899 TAKING SINGULAIR 10 MG TABLET 1 TABLET IN THE EVENING ORALLY ONCE A DAY, NOTES: 09-17-16899 TAKING PROCTOFOAM HC 1-1 % FOAM 1 APPLICATION NEEDED RECTAL FOUR TIMES A DAY, NOTES: NOT STARTED IT YET NOT-TAKING PERCOCET 5-325 MG TABLET 1 TABLET NEEDED ORALLY EVERY 6 HRS, NOTES: 09-09-16899 NOT-TAKING KETOCONAZOLE 2 % CREAM APPLY THIN LAYER TO LEFT ARM AND RIGHT FOOT EXTERNALLY ONCE A DAY, NOTES: NONE RECENT MEDICATION LIST REVIEWED AND RECONCILED WITH THE PATIENT PAST MEDICAL HISTORY DEPRESSION/ANXIETY/DYSTHYMIA ADD MIGRAINE HEADACHES ALLERGIC RHINITIS/CONJUNCTIVITIS (ON ALLERGY INJECTIONS) IRON DEFICIENCY HEMORRHOIDS/INT CONSTIPATION HTN VITAMIN D DEFICIENCY STRESS INCONTINENCE H/O PE/INFARCT IDIOPATHIC HYPERSOMNIA (NEURO.) BACK PAIN CARPAL TUNNEL BILATERAL BONE SPURS CERVICAL AREA ALLERGIES ENVIRONMENTAL: NASAL CONGESTION: ALLERGY MOLD: NASAL CONGESTION: ALLERGY DOGS AND CATS: UNSURE OF REACTION: ALLERGY PINEAPPLE FLAVOR: TONGUE SWELLING: ALLERGY PT STATES SHE GETS ALLERGY INJECTIONS BANANA (DIAGNOSTIC): TONGUE SWELLING: ALLERGY STRAWBERRY (DIAGNOSTIC): TONGUE SWELLING: ALLERGY REVIEW OF SYSTEMS REVIEWED BY: PROVIDER: . CONSTITUTIONAL: ANY CHANGE IN YOUR MEDICAL CONDITION? NO . CHILLS NO . FEVER NO . INFECTION: DO YOU HAVE NEW INFECTIONS? NO . DO YOU HAVE HISTORY OF MRSA? NO . MUSCULOSKELETAL: ANY NEW PATTERNS OF PAIN OR NUMBNESS? NO . GASTROENTEROLOGY: ANY NEW CHANGE IN BOWEL CONTROL? NO . GENITOURINARY: ANY NEW CHANGE IN BLADDER CONTROL? NO . IS THERE A CHANCE YOU COULD BE ? NO . HEMATOLOGY/LYMPH: DO YOU TAKE ANY BLOOD THINNERS? (FOR EXAMPLE- COUMADIN, PLAVIX, AGGRENOX, PLATEL, PRADAXA, OR XARELTO) NO . WHEN WAS YOUR LAST DOSE? DATE: TIME: . NEUROLOGY: HAVE YOU FALLEN IN THE PAST 6 MONTHS? NO . ANY NEW EXTREMITY NUMBNESS OR WEAKNESS? NO . CARDIOLOGY: DO YOU HAVE A PACEMAKER OR DEFIBRILLATOR? NO . RESPIRATORY: HAVE YOU BEEN SICK IN THE PAST WEEK? NO . FEVER NO . FLU LIKE SYMPTOMS? NO . COUGH NO . INTEGUMENTARY: DO YOU HAVE ANY RASHES OR OPEN SORES? NO . ALLERGIC/IMMUNO: ARE YOU ALLERGIC TO SHELLFISH OR IV DYE? NO . ANY NEW ALLERGIES? NO . PSYCHIATRIC: DO YOU HAVE THOUGHTS OF HURTING YOURSELF OR SOMEONE ELSE? NO . ARE YOU ABUSED, NEGLECTED, OR IN AN UNSAFE ENVIRONMENT? NO . ENDOCRINOLOGY: ARE YOU DIABETIC? NO . OTHER: DO YOU NEED ANY PRESCRIPTIONS? NO . IF YES, PLEASE LIST: ____ . ANY NEW PROBLEMS WITH YOUR MEDICATIONS? NO . WHEN DID YOU LAST EAT? ____LAST NIGHT 8 PM . WHEN DID YOU LAST DRINK? ____LAST NIGHT 10 PM . WHAT DID YOU LAST DRINK? ____WATER . NAME OF PERSON DRIVING YOU HOME? ____HUSBAND BERENICE . DO YOU HAVE ANY OTHER QUESTIONS OR CONCERNS NO . VITAL SIGNS WT 217.2 LBS, HT 66 IN, BMI 35.05 INDEX, BP 127/80 MM HG, HR 71 /MIN, RR 16 /MIN, TEMP 97.6 F, OXYGEN SAT % 99%, NA INITIALS TL 1112, REVIEWED BY: KG. ASSESSMENTS SPONDYLOSIS WITHOUT MYELOPATHY OR RADICULOPATHY, LUMBAR REGION - M47.816 (PRIMARY) SPONDYLOSIS WITHOUT MYELOPATHY OR RADICULOPATHY, LUMBOSACRAL REGION - M47.817 PROCEDURES PN RADIOFREQUENCY PRE PROCEDURE DIAGNOSES 1. LUMBAR SPONDYLOSIS. 2. LUMBOSACRAL SPONDYLOSIS POST PROCEDURE DIAGNOSES 1. LUMBAR SPONDYLOSIS. 2. LUMBOSACRAL SPONDYLOSIS PROCEDURE LEFT L4-L5 AND LEFT L5-S1 LUMBAR FACET RADIOFREQUENCY SURGEON DR. WOOD MARMOLEJO MOLD SHOP SUPERVISOR NONE ANESTHESIA LOCAL PRE PROCEDURE REPORT THE PATIENT HAS HISTORY OF CHRONIC LOW BACK PAIN. I EVALUATE THE PATIENT AND REVIEWED THE CHART. I WENT OVER THE RISKS, ALTERNATIVES, AND BENEFITS ASSOCIATED WITH THIS PROCEDURE. THE PATIENT WOULD LIKE TO PROCEED AND GIVE CONSENT TO PERFORMED THE PROCEDURE. THE PATIENT DENIES UNEXPLAINABLE WEIGHT LOSS, FEVER, CHILLS, OR NEW CHANGES IN URINARY OR BOWEL CONTROL DESCRIPTION OF PROCEDURE THE PATIENT WAS BROUGHT TO THE PROCEDURE ROOM AND PLACED IN THE PRONE POSITION. THE LUMBOSACRAL AREA WAS CLEANED WITH CHLORAPREP SOLUTION AND DRAPED ASEPTICALLY. THE PROCEDURE WAS DONE UNDER STERILE CONDITIONS. I CHECKED LATERALITY AND THE LEVEL WHERE THE PROCEDURE WAS GOING TO BE PERFORMED WITH THE PATIENT AND THE SUPPORTING STAFF AT THE MOMENT OF THE TIME OUT IN THE PROCEDURE ROOM. UNDER FLUOROSCOPIC GUIDANCE, TARGETS WERE SELECTED AT THE INTERSECTION OF THE LEFT TRANSVERSE PROCESS OF L4, L5 AND ALA OF S1 WITH ITS RESPECTIVE SUPERIOR ARTICULAR PROCESS. LIDOCAINE WAS USED TO NUMB THE SKIN AND THE SUBCUTANEOUS TISSUE BELOW IT. RADIOFREQUENCY NEEDLES 22-GAUGE 15 CM LONG WITH 10 MM ACTIVE CURVE TIP WERE ADVANCED UNDER FLUOROSCOPIC GUIDANCE AND FOLLOWING PATIENT FEEDBACK UNTIL THE TARGET AREA WAS REACHED. POSITION OF THE NEEDLES WAS VERIFIED WITH AP AND LATERAL VIEWS. AFTER PROPER POSITION OF THE NEEDLE WAS ACHIEVED, WE WORKED WITH THE LEFT SELECTED MEDIAN BRANCHES OF L3, L4 AND THE DORSAL RAMI OF L5. WE MEASURED THE CORRESPONDING IMPEDANCES, SENSORY STIMULATION AND MOTOR RESPONSES INDICATED IN THE RADIOFREQUENCY WORK SHEET. POSITION OF THE NEEDLES WAS VERIFIED AGAIN WITH AP AND LATERAL VIEWS. LIDOCAINE 1%, 2 ML, WAS INJECTED AT EACH LEVEL. RADIOFREQUENCY WAS DONE AT EACH LEVEL AT 80 DEGREES FOR 90 SECONDS. AFTER RADIOFREQUENCY WAS DONE, THE PATIENT RECEIVED BUPIVACAINE 0.125% 1 CC WITH KENALOG 5 MG AT EACH SITE. THERE WAS NO EVIDENCE OF BLOOD, PARESTHESIA OR CEREBROSPINAL FLUID DURING THE PROCEDURE. THE PATIENT WAS SENT TO THE RECOVERY ROOM. THE PATIENT WAS MOVING THE EXTREMITIES AND DOING WELL. THERE WAS NO COMPLICATION DURING THE PROCEDURE. FLUOROSCOPY TIME WAS 37 SECONDS POST PROCEDURE NOTE THE PATIENT WILL BE SEEN IN A FOLLOW UP IN THE NEXT FEW WEEKS. INSTRUCTIONS WERE GIVEN, QUESTIONS WERE ANSWERED, AND THE PATIENT EXPRESSED UNDERSTANDING AND AGREES WITH THE PLAN. I, MAX KENDRICK, DOCUMENTED THE ABOVE INFORMATION ACTING A SCRIBE FOR DR. MARMOLEJO. I HAVE REVIEWED THE ABOVE DOCUMENT, WRITTEN BY MAX KENDRICK SCRIBE AND I VERIFY THAT IT IS ACCURATE DIAGNOSTIC IMAGING [facility] FACET BLOCK (PAIN)[id number] PROCEDURE CODES 87351 DESTROY LUMB/SAC [place]ACET JNT 11142 DESTROY L/S FACET JNT ADDL 6045F RADXPS IN END [id number] PXD DISPOSITION & COMMUNICATION FOLLOW UP 3 WEEKS ELECTRONICALLY SIGNED BY WOOD MARMOLEJO MD ON 10/04/2016 AT 12:00 PM EDT DISCLAIMER : THIS IS A VISIT SUMMARY EXTRACTED FROM THE [email or web address] CHART. IT IS NOT A COPY OF THE [email or web address] PROGRESS NOTE. MTDD
== END ==
LOC: M PAIN 11:40
PROVIDERS: ATTEND Anesthesiology
DX: G89.29 Other chronic pain (principal); M47.816 Spondylosis without myelopathy or radiculopathy, lumbar region; M47.817 Spondylosis without myelopathy or radiculopathy, lumbosacral region; F32.9 Major depressive disorder, single episode, unspecified; F41.9 Anxiety disorder, unspecified; G43.909 Migraine, unspecified, not intractable, without status migrainosus; J30.89 Other allergic rhinitis; I10 Essential (primary) hypertension; E55.9 Vitamin D deficiency, unspecified; G47.11 Idiopathic hypersomnia with long sleep time; L23.81 Allergic contact dermatitis due to animal (cat) (dog) dander; Z91.018 Allergy to other foods; Z79.891 Long term (current) use of opiate analgesic; Z79.899 Other long term (current) drug therapy
CPT/HCPCS: 64635; 64636; J3301; Q9967

== ENCOUNTER → 2016-10-19 | Outpatient (REF) | payer OTHER ==
[~2016-10-19] MED LIST changes: -BUPIVACAINE HCL 0.25% 30 ML VIAL As Ordered ONE; -ISOVUE-M 300 61% 15ML VIAL (Q9967) As Ordered ONE; -LIDOCAINE 1% SDV INJ 30 ML VIAL As Ordered ONE; -TRIAMCINOLONE ACETONIDE SUSP 40 MG/ML VIAL (J3301) As Ordered ONE
[2016-10-19 20:27] LABS: MEAN CORPUSCULAR HGB CONC 33.6 g/dl (32.0-36.5); MEAN CORPUSCULAR VOLUME 86.3 fl (80.0-96.0); RED CELL DISTRIBUTION WIDTH 13.1 % (11.5-14.5); WHITE BLOOD COUNT 14.1 K/mm3 (4.0-10.0)
== END ==
LOC: M SFHCLERA 16:28
PROVIDERS: ATTEND Physician Assistant
DX: D64.9 Anemia, unspecified (principal); E55.9 Vitamin D deficiency, unspecified

== ENCOUNTER → 2016-11-13 | Outpatient (CLI) | payer OTHER ==
--- NOTE | 2016-11-27 01:06 | ECWPNPC ---
PATIENT NAME: PAMELLA LONDONO : 1975 GENDER: FEMALE VISIT DATE: 11/13/2016 DISCHARGE DATE: 11/13/16 1128 VISIT LOCKED DATE TIME: PHYSICIAN: ZANE FOURNIER RESOURCE: ZANE FOURNIER REASON FOR APPOINTMENT 1. NECK HISTORY OF PRESENT ILLNESS HISTORY OF PRESENT ILLNESS: HERE FOR POST PROCEDURE F/U.HAD LEFT L4/5-L5/S1 RADIOFREQUENCY ON 09-19-16 AND FEELS SHE CONTINUES TO BENEFIT.REPORTING LESS PAIN WITH ADL'S.RATING PAIN VAS 3/10.CHIEF AREA OF PAIN IS NECK.REPORTS SEVERE EPISODE OF NECK SPASM AND PAIN THAT WAS SHOOTING FROM MID SCAPULAR TO NECK.REPORTING RIGHT LEG GIVING OUT A FEW WEEKS AGO.DENIES BOWELOR BLADDER INCONTINENCE. FALL RISK SCREENING: SCREENING :NO FALLS IN THE PAST YEAR CURRENT MEDICATIONS TAKING IRON 325 (65 FE) MG TABLET 1 TABLET ORALLY ONCE A DAY NEEDED, NOTES: 09-18-16899 TAKING TROKENDI XR 200 MG CAPSULE EXTENDED RELEASE 24 HOUR ORAL ONCE DAILY, NOTES: 09-17-162099 TAKING PROBIOTIC CAPSULE 1 CAP ORALLY DAILY, NOTES: 09-18-16899 TAKING SUMATRIPTAN SUCCINATE 100 MG TABLET 1 TABLET NEEDED ONE TIME ORALLY ONCE A DAY, NOTES: 09-04-16 TAKING CONCERTA 36 MG TABLET EXTENDED RELEASE 1 TABLET IN THE MORNING ORALLY TWICE A DAY, NOTES: 09-19-16899 TAKING DIAZEPAM 5 MG TABLET (SCHEDULE IV DRUG) TAKE ONE TABLET BY MOUTH THREE TIMES A DAY NEEDED FOR BACK PAIN MAXIMUM DAILY DOSE 3 TABLETS ORAL , NOTES: 09-04-16899 TAKING SINGULAIR 10 MG TABLET 1 TABLET IN THE EVENING ORALLY ONCE A DAY, NOTES: 09-17-16899 TAKING PROCTOFOAM HC 1-1 % FOAM 1 APPLICATION NEEDED RECTAL FOUR TIMES A DAY, NOTES: NOT STARTED IT YET TAKING CYMBALTA 60 MG CAPSULE DELAYED RELEASE PARTICLES 1 CAPSULE ORALLY ONCE A DAY, NOTES: 09-18-16899 TAKING WELLBUTRIN XL 150 MG TABLET EXTENDED RELEASE 24 HOUR 1 TABLET IN THE MORNING ORALLY ONCE A DAY, NOTES: 09-18-16899 NOT-TAKING NORCO 5-325 MG TABLET 1 TABLET NEEDED ORALLY EVERY 6 HRS, NOTES: 09-09-16899 NOT-TAKING OMEPRAZOLE 40 MG CAPSULE DELAYED RELEASE 1 CAPSULE ORALLY ONCE A DAY, NOTES: 899 NOT-TAKING ZANAFLEX 4 MG TABLET 1 TABLET NEEDED ORALLY THREE TIMES A DAY NOT-TAKING PERCOCET 5-325 MG TABLET 1 TABLET NEEDED ORALLY EVERY 6 HRS, NOTES: 09-09-16899 NOT-TAKING KETOCONAZOLE 2 % CREAM APPLY THIN LAYER TO LEFT ARM AND RIGHT FOOT EXTERNALLY ONCE A DAY, NOTES: NONE RECENT MEDICATION LIST REVIEWED AND RECONCILED WITH THE PATIENT PAST MEDICAL HISTORY DEPRESSION/ANXIETY/DYSTHYMIA ADD MIGRAINE HEADACHES ALLERGIC RHINITIS/CONJUNCTIVITIS (ON ALLERGY INJECTIONS) IRON DEFICIENCY HEMORRHOIDS/INT CONSTIPATION HTN VITAMIN D DEFICIENCY STRESS INCONTINENCE H/O PE/INFARCT IDIOPATHIC HYPERSOMNIA (NEURO.) BACK PAIN CARPAL TUNNEL BILATERAL BONE SPURS CERVICAL AREA ALLERGIES ENVIRONMENTAL: NASAL CONGESTION: ALLERGY MOLD: NASAL CONGESTION: ALLERGY DOGS AND CATS: UNSURE OF REACTION: ALLERGY PINEAPPLE FLAVOR: TONGUE SWELLING: ALLERGY PT STATES SHE GETS ALLERGY INJECTIONS BANANA (DIAGNOSTIC): TONGUE SWELLING: ALLERGY STRAWBERRY (DIAGNOSTIC): TONGUE SWELLING: ALLERGY REVIEW OF SYSTEMS REVIEWED BY: PROVIDER: ZANE CRAWFORD . CONSTITUTIONAL: ANY CHANGE IN YOUR MEDICAL CONDITION? NO . CHILLS NO . FEVER NO . INFECTION: DO YOU HAVE NEW INFECTIONS? NO . DO YOU HAVE HISTORY OF MRSA? NO . MUSCULOSKELETAL: ANY NEW PATTERNS OF PAIN OR NUMBNESS? YES PT REPORTS SEVERE BACK SPASMS, GOING FROM BETWEEN HER SHOULDER BLADES EXTENDING UPWARDS TO NECK. THIS LASTED APPROXIMATELY ONE WEEK. . GASTROENTEROLOGY: ANY NEW CHANGE IN BOWEL CONTROL? NO . GENITOURINARY: ANY NEW CHANGE IN BLADDER CONTROL? NO . IS THERE A CHANCE YOU COULD BE ? NO . HEMATOLOGY/LYMPH: DO YOU TAKE ANY BLOOD THINNERS? (FOR EXAMPLE- COUMADIN, PLAVIX, AGGRENOX, PLATEL, PRADAXA, OR XARELTO) NO . WHEN WAS YOUR LAST DOSE? DATE: TIME: . NEUROLOGY: HAVE YOU FALLEN IN THE PAST 6 MONTHS? NO . ANY NEW EXTREMITY NUMBNESS OR WEAKNESS? NO . CARDIOLOGY: DO YOU HAVE A PACEMAKER OR DEFIBRILLATOR? NO . RESPIRATORY: HAVE YOU BEEN SICK IN THE PAST WEEK? NO . FEVER NO . FLU LIKE SYMPTOMS? NO . COUGH NO . INTEGUMENTARY: DO YOU HAVE ANY RASHES OR OPEN SORES? NO . ALLERGIC/IMMUNO: ARE YOU ALLERGIC TO SHELLFISH OR IV DYE? NO . ANY NEW ALLERGIES? NO . PSYCHIATRIC: DO YOU HAVE THOUGHTS OF HURTING YOURSELF OR SOMEONE ELSE? NO . ARE YOU ABUSED, NEGLECTED, OR IN AN UNSAFE ENVIRONMENT? NO . ENDOCRINOLOGY: ARE YOU DIABETIC? NO . OTHER: DO YOU NEED ANY PRESCRIPTIONS? NO . IF YES, PLEASE LIST: ____ . ANY NEW PROBLEMS WITH YOUR MEDICATIONS? NO . WHEN DID YOU LAST EAT? ____ . WHEN DID YOU LAST DRINK? ____ . WHAT DID YOU LAST DRINK? ____ . NAME OF PERSON DRIVING YOU HOME? ____ . DO YOU HAVE ANY OTHER QUESTIONS OR CONCERNS YES PT REPORTS SHE MOMENTARILY LOST FUNCTION IN HER RIGHT LEG MOMENTARILY, CAUSING HER TO FALL. THIS LASTED APPROXIMATELY 15 SECONDS, HAPPENED ONLY ONE EPISODE. . VITAL SIGNS WT 212 LBS, HT 66 IN, BMI 34.21 INDEX, BP 137/98 MM HG, HR 84 /MIN, RR 16 /MIN, TEMP 97.4 F, OXYGEN SAT % 99%, SAFE IN ENV? (Y/N) YES, REVIEWED BY: JUSTINA. EXAMINATION GENERAL EXAMINATION: GENERAL APPEARANCE:COMFORTABLE. PSYCHAFFECT NORMAL. LUNGS:LUNG [place] ARE CLEAR TO AUSCULTATION BILATERALLY. GOOD MOVEMENT OF AIR. HEART:S1, S2 IN A REGULAR RATE AND RHYTHM. NO SIGNIFICANT MURMURS, RUBS OR GALLOPS NOTED. LUMBAR SPINE/LOWER BACK: PALPATION:SPECIFIC PAIN WITH FACET LOADING LEFT L4/5-L5/S1. MOTOR SYSTEM:5/5 BLE. SENSORY EXAM:NORMAL BILATERAL LE. CERVICAL SPINE/NECK: RANGE OF MOTION OF NECK:LIMITED IN ALL DIRECTIONS. VERTEBRAL SPINE TENDERNESS:MILD DISCOMFORT. PARASPINAL MUSCLE SPASM:PRESENT ON RIGHT > LEFT SIDE. TRAPEZIUS TENDERNESS:PRESENT ON RIGHT > LEFT SIDE. 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 CLINICAL NOTES: INFORMATION PROVIDED REGARDING CERVICAL EPIDURAL INJECTIONS, PT VERBALIZES UNDERSTANDING. PROCEDURE CODES FA211 ESTABILISHED PATIENT [facility] FACILITY CHARGE DISPOSITION & COMMUNICATION FOLLOW UP 2WK POST (REASON: C4/5 SHERYL) ELECTRONICALLY SIGNED BY TY FORREST ON 11/26/2016 AT 11:42 PM EDT DISCLAIMER : THIS IS A VISIT SUMMARY EXTRACTED FROM THE [employer] CHART. IT IS NOT A COPY OF THE [employer] PROGRESS NOTE. MTDD
== END ==
LOC: M PAIN 10:15
PROVIDERS: ATTEND Nurse Practitioner Family
DX: M12.88 Other specific arthropathies, not elsewhere classified, other specified site (principal); M79.1 Myalgia; M48.02 Spinal stenosis, cervical region; Z79.899 Other long term (current) drug therapy; J30.9 Allergic rhinitis, unspecified; J30.89 Other allergic rhinitis; J30.81 Allergic rhinitis due to animal (cat) (dog) hair and dander; Z91.018 Allergy to other foods

== ENCOUNTER → 2017-01-23 | Outpatient (CLI) | payer OTHER ==
[~2017-01-23] MED LIST changes: +ISOVUE-M 300 61% 15ML VIAL (Q9967) As Ordered ONE; +LIDOCAINE 1% SDV INJ 30 ML VIAL As Ordered ONE; +diazePAM 5 MG TAB As Ordered ONE; +methylPREDNISolone SUSP 40 MG/ML (DEPO-medrol) VIAL (J1030) As Ordered ONE; +oxyCODONE 5MG TAB As Ordered ONE
--- NOTE | 2017-01-23 14:19 | REP ---
Limited cervical spine: Three views. History: Cervical epidural injection for pain. 14 seconds of fluoroscopy time is reported. Findings: A sequence of three last image hold fluoroscopic spot radiographs of the cervicothoracic junction documents needle position and contrast injection associated with cervical epidural injection. Signed by Jah Mcclure MD 01/23/2017 04:17 P
--- NOTE | 2017-02-07 00:31 | ECWPNPC ---
PATIENT NAME: PAMELLA LONDONO : 1975 GENDER: FEMALE VISIT DATE: 01/23/2017 DISCHARGE DATE: 01/23/17 1243 VISIT LOCKED DATE TIME: PHYSICIAN: WOOD MARMOLEJO RESOURCE: WOOD MARMOLEJO REASON FOR APPOINTMENT 1. CE HISTORY OF PRESENT ILLNESS HISTORY OF PRESENT ILLNESS: PAIN THE PATIENT DESCRIBES THE PAIN... FALL RISK SCREENING: SCREENING :NO FALLS IN THE PAST YEAR CURRENT MEDICATIONS TAKING IRON 325 (65 FE) MG TABLET 1 TABLET ORALLY ONCE A DAY NEEDED, NOTES: 01-22-17 AM TAKING TROKENDI XR 200 MG CAPSULE EXTENDED RELEASE 24 HOUR ORAL ONCE DAILY, NOTES: 01-22-170 TAKING SUMATRIPTAN SUCCINATE 100 MG TABLET 1 TABLET NEEDED ONE TIME ORALLY ONCE A DAY, NOTES: NONE RECENT TAKING CONCERTA 36 MG TABLET EXTENDED RELEASE 1 TABLET IN THE MORNING ORALLY TWICE A DAY, NOTES: 01-22-17 AM TAKING PROCTOFOAM HC 1-1 % FOAM 1 APPLICATION NEEDED RECTAL FOUR TIMES A DAY, NOTES: NONE RECENT TAKING SINGULAIR 10 MG TABLET 1 TABLET IN THE EVENING ORALLY ONCE A DAY, NOTES: 01-22-17 2100 TAKING CYMBALTA 60 MG CAPSULE DELAYED RELEASE PARTICLES 1 CAPSULE ORALLY ONCE A DAY, NOTES: 01-22-172099 NOT-TAKING PROBIOTIC CAPSULE 1 CAP ORALLY DAILY, NOTES: NONE RECENT NOT-TAKING WELLBUTRIN XL 150 MG TABLET EXTENDED RELEASE 24 HOUR 1 TABLET IN THE MORNING ORALLY ONCE A DAY NOT-TAKING KETOCONAZOLE 2 % CREAM APPLY THIN LAYER TO LEFT ARM AND RIGHT FOOT EXTERNALLY ONCE A DAY, NOTES: NONE RECENT DISCONTINUED DIAZEPAM 5 MG TABLET (SCHEDULE IV DRUG) TAKE ONE TABLET BY MOUTH THREE TIMES A DAY NEEDED FOR BACK PAIN MAXIMUM DAILY DOSE 3 TABLETS ORAL DISCONTINUED NORCO 5-325 MG TABLET 1 TABLET NEEDED ORALLY EVERY 6 HRS DISCONTINUED OMEPRAZOLE 40 MG CAPSULE DELAYED RELEASE 1 CAPSULE ORALLY ONCE A DAY DISCONTINUED ZANAFLEX 4 MG TABLET 1 TABLET NEEDED ORALLY THREE TIMES A DAY DISCONTINUED PERCOCET 5-325 MG TABLET 1 TABLET NEEDED ORALLY EVERY 6 HRS MEDICATION LIST REVIEWED AND RECONCILED WITH THE PATIENT PAST MEDICAL HISTORY DEPRESSION/ANXIETY/DYSTHYMIA ADD MIGRAINE HEADACHES ALLERGIC RHINITIS/CONJUNCTIVITIS (ON ALLERGY INJECTIONS) IRON DEFICIENCY HEMORRHOIDS/INT CONSTIPATION HTN VITAMIN D DEFICIENCY STRESS INCONTINENCE H/O PE/INFARCT IDIOPATHIC HYPERSOMNIA (NEURO.) BACK PAIN CARPAL TUNNEL BILATERAL BONE SPURS CERVICAL AREA ALLERGIES ENVIRONMENTAL: NASAL CONGESTION: ALLERGY MOLD: NASAL CONGESTION: ALLERGY DOGS AND CATS: UNSURE OF REACTION: ALLERGY PINEAPPLE FLAVOR: TONGUE SWELLING: ALLERGY PT STATES SHE GETS ALLERGY INJECTIONS BANANA (DIAGNOSTIC): TONGUE SWELLING: ALLERGY STRAWBERRY (DIAGNOSTIC): TONGUE SWELLING: ALLERGY SOCIAL HISTORY GENERAL: TOBACCO USE ARE YOU A: NONSMOKER . RECREATIONAL DRUG USE DRUG USE? NO . CAFFEINE CAFFEINE USE? YES , HOW OFTEN AND HOW MUCH? 32 OZ PER DAY OF CAFFIENE. HIV / HEP-C SCREENING HIV TEST OFFERED TO PATIENT:YES DATE OFFERED:05/22/2016 TEST ACCEPTED:NO REASON:PATIENT DECLINED HEP-C TEST OFFERED TO PATIENT:NO HOAHAOISM NO JAINISM PREFERENCE. LEARNING BARRIERS / SPECIAL NEEDS BARRIERS TO LEARNING?NO HEARING IMPAIRED?NO VISION IMPAIRED?YES :CORRECTIVE LENSES CONTACTS COGNITIVELY IMPAIRED?NO READINESS TO LEARN?YES LEARNING PREFERENCES?NO LEARNING CAPABILITIES PRESENT?YES EMOTIONAL BARRIERS?NO SPECIAL DEVICES?NO IC DESIGNER CUSTOM NEEDED?NO PSYCHOLOGICAL HX TREATMENT YES ADD, ANXIETY AND DEPRESSION ON MEDS. PAIN CLINIC PFS, CLERGY, PUBLIC HEALTH REFERRALS HAS THE PATIENT BEEN EDUCATED REGARDING HIS/HER PLAN OF CARE?YES REVIEWED CERVICAL PROCEDURE HAS THE PATIENT BEEN EDUCATED REGARDING PAIN, THE RISK FOR PAIN, THE IMPORTANCE OF EFFECTIVE PAIN MANAGEMENT, AND THE PAIN ASSESSMENT PROCESS?YES PATIENT: DENIES USE OF ANY ILLEGAL SUBSTANCE INCLUDING MARIJUANA OR COCAINE, REPORTS BEING EMOTIONALLY STABLE, REPORTS HAVING A SAFE AND ADEQUATE PLACE TO STORE THE MEDICATIONS, IS AWARE THAT THEY ARE RESPONSIBLE AND GUARDIAN OF THE PRESCRIBED MEDICATIONS, DENIES RECREATIONAL DRUG USE. ADVANCE DIRECTIVES HEALTH CARE PROXY?NO INFORMATION OFFERED AND DECLINED. POWER OF INFORMATION ASSURANCE?NO REVIEW OF SYSTEMS REVIEWED BY: PROVIDER: . CONSTITUTIONAL: ANY CHANGE IN YOUR MEDICAL CONDITION? NO . CHILLS NO . FEVER NO . INFECTION: DO YOU HAVE NEW INFECTIONS? NO . DO YOU HAVE HISTORY OF MRSA? NO . MUSCULOSKELETAL: ANY NEW PATTERNS OF PAIN OR NUMBNESS? NO . GASTROENTEROLOGY: ANY NEW CHANGE IN BOWEL CONTROL? NO . GENITOURINARY: ANY NEW CHANGE IN BLADDER CONTROL? NO . IS THERE A CHANCE YOU COULD BE ? NO . HEMATOLOGY/LYMPH: DO YOU TAKE ANY BLOOD THINNERS? (FOR EXAMPLE- COUMADIN, PLAVIX, AGGRENOX, PLATEL, PRADAXA, OR XARELTO) NO . WHEN WAS YOUR LAST DOSE? DATE: TIME: . NEUROLOGY: HAVE YOU FALLEN IN THE PAST 6 MONTHS? NO . ANY NEW EXTREMITY NUMBNESS OR WEAKNESS? NO . CARDIOLOGY: DO YOU HAVE A PACEMAKER OR DEFIBRILLATOR? NO . RESPIRATORY: HAVE YOU BEEN SICK IN THE PAST WEEK? NO . FEVER NO . FLU LIKE SYMPTOMS? NO . COUGH NO . INTEGUMENTARY: DO YOU HAVE ANY RASHES OR OPEN SORES? NO . ALLERGIC/IMMUNO: ARE YOU ALLERGIC TO SHELLFISH OR IV DYE? NO . ANY NEW ALLERGIES? NO . PSYCHIATRIC: DO YOU HAVE THOUGHTS OF HURTING YOURSELF OR SOMEONE ELSE? NO . ARE YOU ABUSED, NEGLECTED, OR IN AN UNSAFE ENVIRONMENT? NO . ENDOCRINOLOGY: ARE YOU DIABETIC? NO . OTHER: DO YOU NEED ANY PRESCRIPTIONS? NO . IF YES, PLEASE LIST: ____ . ANY NEW PROBLEMS WITH YOUR MEDICATIONS? NO . WHEN DID YOU LAST EAT? 01-22-17 8 PM . WHEN DID YOU LAST DRINK? 01-22-17 LAST NIGHT . WHAT DID YOU LAST DRINK? WATER . NAME OF PERSON DRIVING YOU HOME? BERENICE MARINO . DO YOU HAVE ANY OTHER QUESTIONS OR CONCERNS NO . VITAL SIGNS WT 214 LBS, HT 66 IN, BMI 34.54 INDEX, BP 116/82 MM HG, HR 71 /MIN, RR 16 /MIN, TEMP 97.9 F, OXYGEN SAT % 97%, NA INITIALS SC 11:03, REVIEWED BY: CM. 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 WOOD MARMOLEJO MASK DESIGN ENGINEER NONE ANESTHESIA LOCAL PRE PROCEDURE NOTE THE PATIENT HAS A HISTORY OF CHRONIC CERVICAL PAIN. I EVALUATE THE PATIENT AND REVIEWED THE CHART. I WENT OVER THE RISKS, ALTERNATIVES, AND BENEFITS ASSOCIATED WITH THIS PROCEDURE. THE PATIENT WOULD LIKE TO PROCEED AND GIVE CONSENT TO PERFORMED THE PROCEDURE. THE PATIENT DENIES UNEXPLAINABLE WEIGHT LOSS, FEVER, CHILLS, OR NEW CHANGES IN URINARY OR BOWEL CONTROL DESCRIPTION OF PROCEDURE THE PATIENT WAS BROUGHT TO THE PROCEDURE ROOM AND PLACED IN THE PRONE POSITION. THE CERVICOTHORACIC AREA WAS CLEANED WITH BETADINE SOLUTION AND DRAPED ASEPTICALLY. THE PROCEDURE WAS DONE UNDER STERILE CONDITIONS. I CHECKED LATERALITY AND THE LEVEL WHERE THE PROCEDURE WAS GOING TO BE PERFORMED WITH THE PATIENT AND THE SUPPORTING STAFF AT THE MOMENT OF THE TIME OUT IN THE PROCEDURE ROOM. UNDER FLUOROSCOPIC GUIDANCE, THE TARGET WAS SELECTED AT THE INTERLAMINAR LEVEL OF C7-T1. LIDOCAINE WAS USED TO NUMB THE SKIN AND THE SUBCUTANEOUS TISSUE BELOW IT. EPIDURAL TUOHY NEEDLE 17-GAUGE WAS ADVANCED UNDER FLUOROSCOPIC GUIDANCE AND FOLLOWING PATIENT FEEDBACK UNTIL THE EPIDURAL SPACE WAS REACHED 6 CM DEEP INTO THE SKIN BY THE LOSS OF RESISTANCE TECHNIQUE. ISOVUE M DYE 30%, 0.25 ML, WAS INJECTED SHOWING ADEQUATE SPREAD OF THE DYE. THEN, A SOLUTION OF 3 ML OF NORMAL SALINE WITH DEPO-MEDROL 60 MG WAS INJECTED SLOWLY FOLLOWING PATIENT FEEDBACK. THERE WAS NO EVIDENCE OF BLOOD, PARESTHESIA OR CEREBROSPINAL FLUID DURING THE PROCEDURE. THE PATIENT WAS SENT TO THE RECOVERY ROOM. THE PATIENT WAS MOVING THE EXTREMITIES AND DOING WELL. THERE WAS NO COMPLICATION DURING THE PROCEDURE. FLUOROSCOPY TIME WAS 14 SECONDS POST PROCEDURE NOTE THE PATIENT WILL BE SEEN IN A FOLLOW UP IN THE NEXT FEW WEEKS. INSTRUCTIONS WERE GIVEN, QUESTIONS WERE ANSWERED, AND THE PATIENT EXPRESSED UNDERSTANDING AND AGREES WITH THE PLAN. I, MAX KENDRICK, DOCUMENTED THE ABOVE INFORMATION ACTING A SCRIBE FOR DR. MARMOLEJO. I HAVE REVIEWED THE ABOVE DOCUMENT, WRITTEN BY MAX KENDRICK SCRIBE AND I VERIFY THAT IT IS ACCURATE DIAGNOSTIC IMAGING [facility] FLUORO GUIDE SPINE INJECTION (PAIN)[id number] PROCEDURE CODES 70582 CERVICAL/THORACIC W/ IMAGING 6045F RADXPS IN END [id number] PXD DISPOSITION & COMMUNICATION FOLLOW UP 3 WEEKS ELECTRONICALLY SIGNED BY WOOD MARMOLEJO MD ON 02/06/2017 AT 09:56 PM EST DISCLAIMER : THIS IS A VISIT SUMMARY EXTRACTED FROM THE [employer] CHART. IT IS NOT A COPY OF THE [employer] PROGRESS NOTE. MTDD
== END ==
LOC: M PAIN 10:45
PROVIDERS: ATTEND Anesthesiology
DX: G89.29 Other chronic pain (principal); M50.13 Cervical disc disorder with radiculopathy, cervicothoracic region; F34.1 Dysthymic disorder; G43.909 Migraine, unspecified, not intractable, without status migrainosus; D50.9 Iron deficiency anemia, unspecified; E55.9 Vitamin D deficiency, unspecified; J30.81 Allergic rhinitis due to animal (cat) (dog) hair and dander; I10 Essential (primary) hypertension; N39.3 Stress incontinence (female) (male); G56.03 Carpal tunnel syndrome, bilateral upper limbs; K64.8 Other hemorrhoids; K59.00 Constipation, unspecified; Z91.018 Allergy to other foods; Z91.048 Other nonmedicinal substance allergy status
CPT/HCPCS: 62321; J1030; Q9967

== ENCOUNTER → 2017-03-07 | Outpatient (REF) | payer OTHER ==
[2017-03-08 11:47] LABS: HEMOGLOBIN 13.9 g/dl (12.0-16.0); MEAN CORPUSCULAR HGB CONC 33.1 g/dl (32.0-36.5); MEAN CORPUSCULAR VOLUME 87.5 fl (80.0-96.0); PLATELET COUNT, AUTOMATED 325 10^3/uL (150-450); RED CELL DISTRIBUTION WIDTH 13.4 % (11.5-14.5); WHITE BLOOD COUNT 11.9 10^3/uL (4.0-10.0)
[2017-03-08 12:05] LABS: TOTAL 25(OH) VITAMIN D 36.2 NG/ML (30.0-100.0)
[2017-03-08 12:07] LABS: FERRITIN 32 NG/ML (8-252)
[2017-03-08 12:07] LABS: IRON (FE) 75 UG/DL (50-170)
== END ==
LOC: M SFHCLERA 16:54
DX: E61.1 Iron deficiency (principal); E55.9 Vitamin D deficiency, unspecified
CPT/HCPCS: 83540

== ENCOUNTER → 2017-06-12 | Outpatient (REF) | payer OTHER | LOC: M SFHCLERA 19:00 | DX: R39.9 Unspecified symptoms and signs involving the genitourinary system (principal) | CPT/HCPCS: 87086 ==

== ENCOUNTER → 2017-07-11 | Outpatient (REF) | payer OTHER | LOC: M SFHCLERA 15:48 | DX: R30.0 Dysuria (principal) | CPT/HCPCS: 87088; 87186 ==

== ENCOUNTER → 2017-07-12 | Outpatient (CLI) | payer OTHER ==
[2017-07-12 17:06] LABS: BASO # 0.1 10^3/uL (0.0-0.2); BASO % 0.6 % (0.0-1.0); EOS # 0.1 10^3/uL (0.0-0.50); EOS % 0.8 % (0.0-3.0); HEMATOCRIT 44.2 % (36.0-47.0); IMMATURE GRANULOCYTE % 0.5 % (0-3.0); LYMPH # 1.7 10^3/uL (1.5-4.5); LYMPH % 19.4 % (24.0-44.0); MEAN CORPUSCULAR HEMOGLOBIN 29.1 pg (27.0-33.0); MEAN CORPUSCULAR HGB CONC 33.9 g/dl (32.0-36.5); MEAN CORPUSCULAR VOLUME 85.8 fl (80.0-96.0); MONO # 0.7 10^3/uL (0.0-0.8); MONO % 7.8 % (0.0-5.0); NEUTROPHILS # 6.1 10^3/uL (1.8-7.7); NEUTROPHILS % 70.9 % (36.0-66.0); PLATELET COUNT, AUTOMATED 324 10^3/uL (150-450); RED BLOOD COUNT 5.15 10^6/uL (4.00-5.40); RED CELL DISTRIBUTION WIDTH 13.2 % (11.5-14.5); WHITE BLOOD COUNT 8.6 10^3/uL (4.0-10.0)
[2017-07-12 17:18] LABS: ALBUMIN 3.7 GM/DL (3.2-5.2); ALBUMIN/GLOBULIN RATIO 0.88 (1.00-1.93); ALKALINE PHOSPHATASE 96 U/L (45-117); ALT/SGPT 33 U/L (12-78); ANION GAP 5 MEQ/L (8-16); AST/SGOT 17 U/L (7-37); BILIRUBIN,TOTAL 0.7 MG/DL (0.2-1.0); BLOOD UREA NITROGEN 13 MG/DL (7-18); CALCIUM LEVEL 9.2 MG/DL (8.5-10.1); CARBON DIOXIDE LEVEL 29 MEQ/L (21-32); CHLORIDE LEVEL 107 MEQ/L (98-107); CREATININE FOR GFR 0.88 MG/DL (0.55-1.30); FOLATE 8.3 NG/ML; GLOMERULAR FILTRATION RATE > 60.0 (>58); GLUCOSE, FASTING 100 MG/DL (70-100); POTASSIUM SERUM 4.2 MEQ/L (3.5-5.1); SODIUM LEVEL 141 MEQ/L (136-145); TOTAL 25(OH) VITAMIN D 33.9 NG/ML (30.0-100.0); TOTAL PROTEIN 7.9 GM/DL (6.4-8.2); VITAMIN B12 LEVEL 515 PG/ML
== END ==
LOC: M LRY 11:23
DX: R42 Dizziness and giddiness (principal)
CPT/HCPCS: 82746

== ENCOUNTER → 2017-08-17 | Outpatient (REF) | payer OTHER ==
[2017-08-17 12:05] LABS: APPEARANCE, URINE HAZY (CLEAR); BACTERIA, URINE AUTO NEGATIVE (NEGATIVE); BILIRUBIN, URINE AUTO NEGATIVE (NEGATIVE); BLOOD, URINE BLOOD 1+ (NEGATIVE); COLOR, URINE YELLOW (YELLOW); GLUCOSE, URINE (UA) AUTO NEGATIVE (NEGATIVE); KETONE, URINE AUTO NEGATIVE (NEGATIVE); LEUKOCYTE ESTERASE, URINE AUTO NEGATIVE (NEGATIVE); MUCUS, URINE SMALL (NEGATIVE); NITRITE, URINE AUTO NEGATIVE (NEGATIVE); PROTEIN, URINE AUTO NEGATIVE (NEGATIVE); RBC, URINE AUTO 1 /HPF (0-3); SPECIFIC GRAVITY URINE AUTO 1.023 (1.002-1.035); SQUAMOUS EPITHELIAL CELL UR AU 5 /HPF (0-6); UROBILINOGEN, URINE AUTO 0.2 mg/dL (0.0-2.0); WBC, URINE AUTO 2 /HPF (0-3)
[2017-08-18 15:28] LABS: ANTINUCLEAR ANTIBODIES DIRECT Negative (Negative); EBV VIRAL CAPSID AG IgG >600.0 U/mL (0.0-17.9)
[2017-08-18 15:28] LABS: EBV VIRAL CAPSID AG IgM <36.0 U/mL (0.0-35.9)
== END ==
LOC: M SFHCLERA 09:40
DX: G47.11 Idiopathic hypersomnia with long sleep time (principal)
CPT/HCPCS: 84443

== ENCOUNTER 2017-09-26 16:12 | Emergency (ER) | payer OTHER ==
[2017-09-26] MEDS: NS 1,000 ML IV (18:20)
[2017-09-26] MEDS: GI COCKTAIL 50ML BTL(HYOSCYAMINE/MAALOX/LIDOCAINE VISCOUS)(1:3:1) PO (18:20)
[2017-09-26] MEDS: KETOROLAC 30 MG/ML VIAL (J1885) IV (18:21)
[2017-09-26] MEDS: PANTOPRAZOLE 40MG INJ (PROTONIX) (C9113) IV (18:21)
[2017-09-26 18:25] LABS: BASO # 0.1 10^3/uL (0.0-0.2); BASO % 0.4 % (0.0-1.0); EOS # 0.1 10^3/uL (0.0-0.50); EOS % 0.9 % (0.0-3.0); HEMATOCRIT 40.5 % (36.0-47.0); HEMOGLOBIN 13.9 g/dl (12.0-15.5); IMMATURE GRANULOCYTE % 0.3 % (0-3.0); LYMPH # 2.4 10^3/uL (1.5-4.5); LYMPH % 20.6 % (24.0-44.0); MEAN CORPUSCULAR HEMOGLOBIN 29.3 pg (27.0-33.0); MEAN CORPUSCULAR HGB CONC 34.3 g/dl (32.0-36.5); MEAN CORPUSCULAR VOLUME 85.4 fl (80.0-96.0); MONO # 0.7 10^3/uL (0.0-0.8); MONO % 5.7 % (0.0-5.0); NEUTROPHILS # 8.3 10^3/uL (1.8-7.7); NEUTROPHILS % 72.1 % (36.0-66.0); PLATELET COUNT, AUTOMATED 290 10^3/uL (150-450); RED BLOOD COUNT 4.74 10^6/uL (4.00-5.40); RED CELL DISTRIBUTION WIDTH 13.3 % (11.5-14.5); WHITE BLOOD COUNT 11.5 10^3/uL (4.0-10.0)
[2017-09-26 18:39] LABS: KETONE, URINE AUTO RFX NEGATIVE (NEGATIVE); LEUKOCYTE ESTERASE UR AUTO RFX NEGATIVE (NEGATIVE); MUCUS, URINE RFX SMALL (NEGATIVE); NITRITE, URINE AUTO RFX NEGATIVE (NEGATIVE); RBC, URINE AUTO RFX 1 /HPF (0-3); SPECIFIC GRAVITY UR AUTO RFX 1.023 (1.002-1.035); SQUAM EPITHELIAL CELL UR AURFX 0 /HPF (0-6); WBC, URINE AUTO RFX 1 /HPF (0-3)
[2017-09-26 18:58] LABS: ALBUMIN 3.6 GM/DL (3.2-5.2); ALBUMIN/GLOBULIN RATIO 0.84 (1.00-1.93); ALKALINE PHOSPHATASE 99 U/L (45-117); ALT/SGPT 24 U/L (12-78); ANION GAP 8 MEQ/L (8-16); AST/SGOT 13 U/L (7-37); BILIRUBIN,DIRECT < 0.1 MG/DL (0.0-0.2); BILIRUBIN,TOTAL 0.4 MG/DL (0.2-1.0); BLOOD UREA NITROGEN 15 MG/DL (7-18); CALCIUM LEVEL 8.7 MG/DL (8.5-10.1); CARBON DIOXIDE LEVEL 26 MEQ/L (21-32); CHLORIDE LEVEL 107 MEQ/L (98-107); CREATININE FOR GFR 0.89 MG/DL (0.55-1.30); GLOMERULAR FILTRATION RATE > 60.0 (>58); GLUCOSE, FASTING 89 MG/DL (70-100); LIPASE 122 U/L (73-393); POTASSIUM SERUM 3.6 MEQ/L (3.5-5.1); SODIUM LEVEL 141 MEQ/L (136-145); TOTAL PROTEIN 7.9 GM/DL (6.4-8.2)
[2017-09-26] MEDS ORDERED: ISOVUE-370 76% 100ML VIAL (Q9967) As Ordered (19:02)
== END 2017-09-26 20:16 | disposition home or self-care (01) ==
LOC: M ED 16:12
DX: A08.4 Viral intestinal infection, unspecified (principal); G43.909 Migraine, unspecified, not intractable, without status migrainosus; G47.10 Hypersomnia, unspecified; Z86.711 Personal history of pulmonary embolism; Z86.718 Personal history of other venous thrombosis and embolism; K64.9 Unspecified hemorrhoids; M54.9 Dorsalgia, unspecified; F41.9 Anxiety disorder, unspecified; F32.9 Major depressive disorder, single episode, unspecified; J30.2 Other seasonal allergic rhinitis; J30.89 Other allergic rhinitis; J30.81 Allergic rhinitis due to animal (cat) (dog) hair and dander; Z79.899 Other long term (current) drug therapy
CPT/HCPCS: C9113

== ENCOUNTER → 2017-10-11 | Outpatient (REF) | payer OTHER ==
[2017-10-11 13:44] LABS: BASO # 0.1 10^3/uL (0.0-0.2); EOS # 0.1 10^3/uL (0.0-0.50); EOS % 1.3 % (0.0-3.0); HEMATOCRIT 45.8 % (36.0-47.0); HEMOGLOBIN 14.8 g/dl (12.0-15.5); IMMATURE GRANULOCYTE % 0.7 % (0-3.0); LYMPH # 1.8 10^3/uL (1.5-4.5); LYMPH % 22.1 % (24.0-44.0); MEAN CORPUSCULAR HEMOGLOBIN 28.7 pg (27.0-33.0); MEAN CORPUSCULAR HGB CONC 32.3 g/dl (32.0-36.5); MEAN CORPUSCULAR VOLUME 88.9 fl (80.0-96.0); MONO # 0.5 10^3/uL (0.0-0.8); MONO % 6.4 % (0.0-5.0); NEUTROPHILS # 5.6 10^3/uL (1.8-7.7); NEUTROPHILS % 68.5 % (36.0-66.0); PLATELET COUNT, AUTOMATED 347 10^3/uL (150-450); RED BLOOD COUNT 5.15 10^6/uL (4.00-5.40); RED CELL DISTRIBUTION WIDTH 13.5 % (11.5-14.5); WHITE BLOOD COUNT 8.2 10^3/uL (4.0-10.0)
[2017-10-11 13:52] LABS: INR 1.01; PARTIAL THROMBOPLASTIN TIME 30.1 SECONDS (25.4-37.6); PROTHROMBIN TIME 13.4 SECONDS (12.1-14.4)
[2017-10-11 14:09] LABS: ALBUMIN 3.7 GM/DL (3.2-5.2); ALBUMIN/GLOBULIN RATIO 0.84 (1.00-1.93); ALKALINE PHOSPHATASE 106 U/L (45-117); ALT/SGPT 26 U/L (12-78); ANION GAP 8 MEQ/L (8-16); AST/SGOT 11 U/L (7-37); BILIRUBIN,TOTAL 0.6 MG/DL (0.2-1.0); BLOOD UREA NITROGEN 13 MG/DL (7-18); CALCIUM LEVEL 8.8 MG/DL (8.5-10.1); CARBON DIOXIDE LEVEL 25 MEQ/L (21-32); CHLORIDE LEVEL 108 MEQ/L (98-107); CHOLESTEROL LEVEL 221 MG/DL (<200); CHOLESTEROL RISK RATIO 3.877 (<5); CREATININE FOR GFR 0.95 MG/DL (0.55-1.30); FERRITIN 33 NG/ML (8-252); GLOMERULAR FILTRATION RATE > 60.0 (>58); GLUCOSE, FASTING 70 MG/DL (70-100); HDL CHOLESTEROL 57 MG/DL (>40); IRON (FE) 201 UG/DL (50-170); LDL CHOLESTEROL 127.8 MG/DL (<100); LIPASE 106 U/L (73-393); NON-HDL-C 164 MG/DL; PERCENT SATURATION 61.8 % (13.2-45.0); POTASSIUM SERUM 3.9 MEQ/L (3.5-5.1); SODIUM LEVEL 141 MEQ/L (136-145); TOTAL IRON BINDING CAPACITY 325 UG/DL (250-450); TOTAL PROTEIN 8.1 GM/DL (6.4-8.2); TRIGLYCERIDES LEVEL 181 MG/DL (<150)
[2017-10-11 14:22] LABS: TOTAL 25(OH) VITAMIN D 28.3 NG/ML (30.0-100.0)
[2017-10-11 14:51] LABS: APPEARANCE, URINE CLEAR (CLEAR); BACTERIA, URINE AUTO NEGATIVE (NEGATIVE); BILIRUBIN, URINE AUTO NEGATIVE (NEGATIVE); BLOOD, URINE BLOOD NEGATIVE (NEGATIVE); COLOR, URINE YELLOW (YELLOW); GLUCOSE, URINE (UA) AUTO NEGATIVE (NEGATIVE); KETONE, URINE AUTO NEGATIVE (NEGATIVE); LEUKOCYTE ESTERASE, URINE AUTO NEGATIVE (NEGATIVE); MUCUS, URINE SMALL (NEGATIVE); NITRITE, URINE AUTO NEGATIVE (NEGATIVE); PROTEIN, URINE AUTO NEGATIVE (NEGATIVE); RBC, URINE AUTO 1 /HPF (0-3); SPECIFIC GRAVITY URINE AUTO 1.012 (1.002-1.035); SQUAMOUS EPITHELIAL CELL UR AU 0 /HPF (0-6); UROBILINOGEN, URINE AUTO 0.2 mg/dL (0.0-2.0); WBC, URINE AUTO 1 /HPF (0-3)
[2017-10-17 00:07] LABS: ANTI THROMBIN 3 FUNCT ACTIVITY 113 % (75-135)
[2017-10-17 00:07] LABS: CARDIOLIPIN IGA ANTIBODY <9 APL U/mL (0-11); CARDIOLIPIN IGG ANTIBODY <9 GPL U/mL (0-14); CARDIOLIPIN IGM ANTIBODY <9 MPL U/mL (0-12); FACTOR V 137 % (70-150); HOMOCYST(E)INE SERUM 10.9 umol/L (0.0-15.0); PROTEIN C FUNCTIONAL ACTIVITY 161 % (73-180); PROTEIN C RESISTANCE ACTIVATED 2.4 ratio (2.2-3.5); PROTEIN S FUNCTIONAL ACTIVITY 101 % (63-140)
== END ==
LOC: M SFHCPLAZ 10:17
DX: R30.0 Dysuria (principal); Z86.711 Personal history of pulmonary embolism; R10.12 Left upper quadrant pain; D50.9 Iron deficiency anemia, unspecified; Z13.220 Encounter for screening for lipoid disorders; E55.9 Vitamin D deficiency, unspecified
CPT/HCPCS: 83550

== ENCOUNTER → 2017-10-11 | Outpatient (CLI) | payer OTHER | LOC: M RAD 20:15 | DX: R10.12 Left upper quadrant pain (principal) | CPT/HCPCS: 71046 ==

== ENCOUNTER 2017-10-18 08:06 | Day surgery (SDC) | payer OTHER ==
[~2017-10-18 08:06] MED LIST changes: -ALBU17IN INH; -AMPHET/DEXTR; -BENZ200C53 PO; -CONC36TA4 PO; -CYCL5TAB; -ISOVUE-M 300 61% 15ML VIAL (Q9967) As Ordered ONE; +LIDOCAINE 1% SDV 5 ML VIAL SQ; -LIDOCAINE 1% SDV INJ 30 ML VIAL As Ordered ONE; -METH18TA2; -NAPR500T PO; -PERC5TAB12 PO; -SUMA100T2; -TROK1CAP; -VALI5TAB PO; -diazePAM 5 MG TAB As Ordered ONE; -methylPREDNISolone SUSP 40 MG/ML (DEPO-medrol) VIAL (J1030) As Ordered ONE; -oxyCODONE 5MG TAB As Ordered ONE
[2017-10-18] MEDS: LR 1,000 ML IV (08:34)
[2017-10-18 08:42] LABS: CONTROL LINE UCG INT CTR LINE PRESENT; URINE PREG TEST NEGATIVE (NEGATIVE)
[2017-10-18] MEDS: EPINEPHrine 1MG/ML INJ 30ML MD-VIAL As Ordered (12:20)
[2017-10-18] MEDS: LIDOCAINE W/EPINEPHRINE 1% 20ML VIAL As Ordered (12:20)
[2017-10-18] MEDS: dexameTHASONE 4 MG/ML 1ML VIAL (J1100) IV (12:20)
[2017-10-18] MEDS ORDERED: ROCURONIUM BROMIDE 50 MG/5 ML VIAL As Ordered (12:21)
[2017-10-18] MEDS ORDERED: fentaNYL 250 MCG/5 ML INJECTION (J3010) As Ordered (12:21)
[2017-10-18] MEDS ORDERED: dexameTHASONE 4 MG/ML 1ML VIAL (J1100) As Ordered (12:21)
[2017-10-18] MEDS ORDERED: PROPOFOL 200 MG/20 ML VIAL As Ordered (12:21)
[2017-10-18] MEDS ORDERED: MIDAZOLAM INJ 2 MG/2 ML VIAL (J2250) As Ordered (12:21)
[2017-10-18] MEDS ORDERED: LIDOCAINE 2% INJ 100 MG/5 ML SDV (FOR ANES.) As Ordered (12:21)
[2017-10-18] MEDS ORDERED: ONDANSETRON 4MG/2ML VIAL (J2405) As Ordered (12:29)
[2017-10-18] MEDS ORDERED: GLYCOPYRROLATE INJ 0.2 MG/ML 2 ML VIAL As Ordered ×2 (12:44)
[2017-10-18] MEDS ORDERED: NEOSTIGMINE 10 MG/10 ML VIAL (J2710) As Ordered (12:44)
[2017-10-18] MEDS: SODIUM CHLORIDE 0.9% NASAL GEL 15GM (AYR) As Ordered (12:44)
[2017-10-18] MEDS ORDERED: fentaNYL 100 MCG/2 ML INJECTION (J3010) As Ordered (13:29)
[2017-10-18] MEDS ORDERED: LR 1,000 ML IV ×2 (13:30)
[2017-10-18] MEDS ORDERED: ONDANSETRON 4MG/2ML VIAL (J2405) IV (13:30)
[2017-10-18] MEDS: fentaNYL 100 MCG/2 ML INJECTION (J3010) IV ×3 (13:33→13:46)
[2017-10-18] MEDS: PERCOCET 5MG/325MG TAB PO ×2 (13:35→14:08)
== END 2017-10-18 17:05 | disposition home or self-care (01) ==
LOC: M SDC 08:06
DX: J34.2 Deviated nasal septum (principal); G43.909 Migraine, unspecified, not intractable, without status migrainosus; F41.9 Anxiety disorder, unspecified; F32.9 Major depressive disorder, single episode, unspecified; Z79.899 Other long term (current) drug therapy
CPT/HCPCS: 30520

== ENCOUNTER 2017-11-04 00:15 | Emergency (ER) | payer OTHER ==
[2017-11-04 02:54] LABS: CONTROL LINE UCG INT CTR LINE PRESENT; URINE PREG TEST NEGATIVE (NEGATIVE)
[2017-11-04 02:59] LABS: KETONE, URINE AUTO RFX TRACE mg/dL (NEGATIVE); LEUKOCYTE ESTERASE UR AUTO RFX 2+ (NEGATIVE); MUCUS, URINE RFX SMALL (NEGATIVE); NITRITE, URINE AUTO RFX NEGATIVE (NEGATIVE); RBC, URINE AUTO RFX 3 /HPF (0-3); SPECIFIC GRAVITY UR AUTO RFX 1.017 (1.002-1.035); SQUAM EPITHELIAL CELL UR AURFX 0 /HPF (0-6); TRANSITIONAL EPITHELIAL AU RFX <1 /HPF; WBC, URINE AUTO RFX 52 /HPF (0-3)
[2017-11-04] MEDS: NITROFURANTOIN (MACROBID) 100 MG CAP PO (03:18)
== END 2017-11-04 03:38 | disposition home or self-care (01) ==
LOC: M ED 00:15
DX: N39.0 Urinary tract infection, site not specified (principal)
CPT/HCPCS: 84703

== ENCOUNTER → 2017-11-20 | Outpatient (REF) | payer OTHER | LOC: M SFHCLERA 18:05 | DX: R30.0 Dysuria (principal) | CPT/HCPCS: 87086 ==

== ENCOUNTER 2018-02-21 16:23 | Emergency (ER) | payer OTHER ==
[~2018-02-21] VITALS: Ht 167.6 cm; Wt 77.3 kg
[~2018-02-21 16:23] MED LIST changes: +ALBU17IN INH; +AMPHET/DEXTR; +BENZ200C70 PO; +BUPR150T3 PO; +CONC36TA4 PO; +CYCL5TAB; +DEXT5CAP5 PO; +DULO1CAP3 PO; +DULO30CA PO; -LIDOCAINE 1% SDV 5 ML VIAL SQ; +MACR100C43 PO; +METH18TA2; +MONT10TA2 PO; +NAPR-49 PO; +NORCOTAB PO; +PERC5TAB12 PO; +PROC1AER16 TOP; +PROV100T25 PO; +SUMA100T2 PO; +TOPI1CAP6 PO; +TROK1CAP8 PO; +VALI5TAB PO; +ZOFR4TAB14 PO
[2018-02-21] MEDS ORDERED: LIDO2JELLY TOP (17:55)
[2018-02-21] MEDS ORDERED: HYDR1CRE28 PR (17:55)
[2018-02-21] MEDS ORDERED: NORCOTAB PO (17:55)
[2018-02-21 18:03] VITALS: BP 132/90
== END 2018-02-21 18:23 | disposition home or self-care (01) ==
LOC: M ED 16:23
DX: K64.4 Residual hemorrhoidal skin tags (principal); F90.9 Attention-deficit hyperactivity disorder, unspecified type; G43.909 Migraine, unspecified, not intractable, without status migrainosus; F41.9 Anxiety disorder, unspecified; F32.9 Major depressive disorder, single episode, unspecified; J30.81 Allergic rhinitis due to animal (cat) (dog) hair and dander; Z91.018 Allergy to other foods; J30.89 Other allergic rhinitis; Z79.899 Other long term (current) drug therapy

== ENCOUNTER → 2018-03-11 | Outpatient (REF) | payer OTHER ==
[~2018-03-11] MED LIST changes: +HYDR1CRE28 PR; +LIDO2JELLY TOP; -NAPR-49 PO; +NAPR-50 PO
== END ==
LOC: M SFHCLERA 14:20
PROVIDERS: ATTEND Nurse Practitioner Family
DX: J02.9 Acute pharyngitis, unspecified (principal)

== ENCOUNTER → 2018-03-12 | Outpatient (CLI) | payer OTHER ==
--- NOTE | 2018-03-27 00:28 | ECWPNPC ---
PATIENT NAME: PAMELLA LONDONO : 1975 GENDER: FEMALE VISIT DATE: 03/12/2018 DISCHARGE DATE: 03/12/18 1547 VISIT LOCKED DATE TIME: PHYSICIAN: ZANE FOURNIER RESOURCE: ZANE FOURNIER REASON FOR APPOINTMENT 1. BACK HISTORY OF PRESENT ILLNESS HISTORY OF PRESENT ILLNESS: HERE FOR F/U OF CHRONIC LOW BACK AND NECK PAIN.CHIEF AREA OF PAIN IS LEFT LOW BACK.SHE WAS DOING WELL AFTER RADIOFREQUENCY UNTIL A FEW MONTHS AGO.PAIN IS DESCRIBED CONSTANT,SHARP AND STABBING.PAIN IS AGGREVATED BY PROLONGED STANDING,SITTING OR EVEN CERTAIN SLEEPING POSITIONS.PAIN IS RELIEVED SOMEWHAT WITH HEAT,REPOSITIONING AND TENS. PAIN THE PATIENT DESCRIBES THE PAIN... THE PATIENT DESCRIBES THE PAIN... FALL RISK SCREENING: SCREENING :NO FALLS IN THE PAST YEAR CURRENT MEDICATIONS TAKING IRON 325 (65 FE) MG TABLET 1 TABLET ORALLY ONCE A DAY NEEDED, NOTES: PRN TAKING TROKENDI XR 200 MG CAPSULE EXTENDED RELEASE 24 HOUR ORAL ONCE DAILY, NOTES: NEUROLOGY - WEENING OFF TAKING SUMATRIPTAN SUCCINATE 100 MG TABLET 1 TABLET NEEDED ONE TIME ORALLY ONCE A DAY, NOTES: NEUROLOGY PRN TAKING PROCTOFOAM HC 1-1 % FOAM 1 APPLICATION NEEDED RECTAL FOUR TIMES A DAY, NOTES: PRN TAKING PROVIGIL 100 MG TABLET 1 TABLET ORALLY BID, NOTES: NERUOLOGY TAKING DEXTROAMPHETAMINE SULFATE 20 MG TABLET 1 TABLET ORALLY BID TAKING VITAMIN D (CHOLECALCIFEROL) , NOTES: PRN TAKING STOOL SOFTENER , NOTES: WITH IRON MEDICATION LIST REVIEWED AND RECONCILED WITH THE PATIENT PAST MEDICAL HISTORY DEPRESSION/ANXIETY/DYSTHYMIA ADD MIGRAINE HEADACHES - NERUOLOGY ALLERGIC RHINITIS/CONJUNCTIVITIS IRON DEFICIENCY HEMORRHOIDS/INT CONSTIPATION HTN VITAMIN D DEFICIENCY STRESS INCONTINENCE H/O PE/INFARCT IDIOPATHIC HYPERSOMNIA (NEURO.) BACK PAIN CARPAL TUNNEL BILATERAL BONE SPURS CERVICAL AREA ALLERGIES ENVIRONMENTAL: NASAL CONGESTION: ALLERGY MOLD: NASAL CONGESTION: ALLERGY DOGS AND CATS: UNSURE OF REACTION: ALLERGY PINEAPPLE FLAVOR: TONGUE SWELLING: ALLERGY BANANA (DIAGNOSTIC): TONGUE SWELLING: ALLERGY STRAWBERRY (DIAGNOSTIC): TONGUE SWELLING: ALLERGY SURGICAL HISTORY C SECTION. 2006 CERVICAL ABLATION 2012 TONSILLECTOMY 1991 FAMILY HISTORY FATHER: , EMPHYSEMA MOTHER: , KIDNEY FAILURE SIBLINGS: ALIVE SON(S): ALIVE DAUGHTER(S): ALIVE PATERNAL GRAND FATHER: ALIVE, DIAGNOSED WITH DIABETES PATERNAL GRAND MOTHER: ALIVE MATERNAL GRAND FATHER: , DIAGNOSED WITH HEART DISEASE MATERNAL GRAND MOTHER: , DIAGNOSED WITH DIABETES, HYPERTENSION 3 BROTHER(S) , 2 SISTER(S) . 2 SON(S) , 1 DAUGHTER(S) . 1 SISTER NEPHRONTIC SYNDROME , HTN 1 BROTHER HYPOTHYRODISM 1 SISTER MS 1 SON AUTISTIC. SOCIAL HISTORY GENERAL: TOBACCO USE ARE YOU A: NONSMOKER . ALCOHOL SCREENING DID YOU HAVE A DRINK CONTAINING ALCOHOL IN THE PAST YEAR?NO POINTS0 INTERPRETATIONNEGATIVE RECREATIONAL DRUG USE DRUG USE? NO . CAFFEINE CAFFEINE USE? YES , HOW OFTEN AND HOW MUCH? 32 OZ PER DAY OF CAFFIENE. SEXUAL HX HAD SEX IN THE LAST 12 MONTHS (VAGINAL, ORAL, OR ANAL)?YES WITHMEN ONLY USE PROTECTION?NO HAVE YOU EVER HAD AN STD?NO HIV / HEP-C SCREENING HIV TEST OFFERED TO PATIENT:YES DATE OFFERED:05/22/2016 TEST ACCEPTED:NO HEP-C TEST OFFERED TO PATIENT:NO REASON:PATIENT DECLINED YARSANISM [id number] NONE LANGUAGE LANGUAGES SPOKEN:BOTH KITTITIAN AND INDONESIAN EDUCATION LEVEL OF EDUCATION:FINISHED COLLEGE LEARNING BARRIERS / SPECIAL NEEDS CHANGE FROM LAST VISIT?NO BARRIERS TO LEARNING?NO HEARING IMPAIRED?NO VISION IMPAIRED?YES COGNITIVELY IMPAIRED?NO :CORRECTIVE LENSES CONTACTS READINESS TO LEARN?YES LEARNING PREFERENCES?NO LEARNING CAPABILITIES PRESENT?YES EMOTIONAL BARRIERS?NO SPECIAL DEVICES?NO INSIGHTS STRATEGIST NEEDED?NO PAIN CLINIC PFS, CLERGY, PUBLIC HEALTH REFERRALS HAS THE PATIENT BEEN EDUCATED REGARDING HIS/HER PLAN OF CARE?YES REVIEWED CERVICAL PROCEDURE HAS THE PATIENT BEEN EDUCATED REGARDING PAIN, THE RISK FOR PAIN, THE IMPORTANCE OF EFFECTIVE PAIN MANAGEMENT, AND THE PAIN ASSESSMENT PROCESS?YES ADVANCE DIRECTIVE ADVANCE DIRECTIVE DISCUSSED WITH PATIENT:YES DECLINED HCP INFORMATION REVIEWED WITH PATIENT 03/12/18 1520 JS. HOSPITALIZATION/MAJOR DIAGNOSTIC PROCEDURE CHILDBIRTH 2002, 2004, 2005 PULMONARY EMBOLISM, WAS TREATED WITH COUMADIN FOR 6 MONTHS, UNKNOWN CAUSE. 01/2003 REVIEW OF SYSTEMS REVIEWED BY: PROVIDER: ZANE CRAWFORD . CONSTITUTIONAL: ANY CHANGE IN YOUR MEDICAL CONDITION? NO . CHILLS NO . FEVER NO . INFECTION: DO YOU HAVE NEW INFECTIONS? NO . DO YOU HAVE HISTORY OF MRSA? NO . MUSCULOSKELETAL: ANY NEW PATTERNS OF PAIN OR NUMBNESS? NO . GASTROENTEROLOGY: ANY NEW CHANGE IN BOWEL CONTROL? NO . GENITOURINARY: ANY NEW CHANGE IN BLADDER CONTROL? YES, STATES STRESS INCONTINENCE AND OCCASSIONAL NON-STRESS INCONTINENCE STARTING APPROX A MONTH AGO . IS THERE A CHANCE YOU COULD BE ? NO . HEMATOLOGY/LYMPH: DO YOU TAKE ANY BLOOD THINNERS? (FOR EXAMPLE- COUMADIN, PLAVIX, AGGRENOX, PLATEL, PRADAXA, OR XARELTO) NO . WHEN WAS YOUR LAST DOSE? DATE: TIME: . NEUROLOGY: HAVE YOU FALLEN IN THE PAST 6 MONTHS? NO . ANY NEW EXTREMITY NUMBNESS OR WEAKNESS? NO . CARDIOLOGY: DO YOU HAVE A PACEMAKER OR DEFIBRILLATOR? NO . RESPIRATORY: HAVE YOU BEEN SICK IN THE PAST WEEK? YES, STATES HEAD AND CHEST COLD FOR THE PAST COUPLE OF WEEKS . FEVER NO . FLU LIKE SYMPTOMS? NO . COUGH YES . INTEGUMENTARY: DO YOU HAVE ANY RASHES OR OPEN SORES? NO . ALLERGIC/IMMUNO: ARE YOU ALLERGIC TO SHELLFISH OR IV DYE? NO . ANY NEW ALLERGIES? NO . PSYCHIATRIC: DO YOU HAVE THOUGHTS OF HURTING YOURSELF OR SOMEONE ELSE? NO . ARE YOU ABUSED, NEGLECTED, OR IN AN UNSAFE ENVIRONMENT? NO . ENDOCRINOLOGY: ARE YOU DIABETIC? NO . OTHER: DO YOU NEED ANY PRESCRIPTIONS? NO . IF YES, PLEASE LIST: ____ . ANY NEW PROBLEMS WITH YOUR MEDICATIONS? NO . WHEN DID YOU LAST EAT? ____ . WHEN DID YOU LAST DRINK? ____ . WHAT DID YOU LAST DRINK? ____ . NAME OF PERSON DRIVING YOU HOME? ____ . DO YOU HAVE ANY OTHER QUESTIONS OR CONCERNS NO . VITAL SIGNS WT 171.8 LBS, HT 66 IN, BMI 27.73 INDEX, BP 122/81 MM HG, HR 80 /MIN, RR 16 /MIN, TEMP 97.9 F, OXYGEN SAT % 99%, SAFE IN ENV? (Y/N) YES, NA INITIALS WY 15:11, REVIEWED BY: MICHAEL. EXAMINATION GENERAL EXAMINATION: GENERAL APPEARANCE:AWAKE,ALERT ,PLEAASANT . PSYCHAFFECT NORMAL . LUNGS:LUNG FRANCE ARE CLEAR TO AUSCULTATION BILATERALLY. GOOD MOVEMENT OF AIR . HEART:S1, S2 IN A REGULAR RATE AND RHYTHM. NO SIGNIFICANT MURMURS, RUBS OR GALLOPS NOTED . LUMBAR SACRAL SPINEPALPATION:TENDER OVER LEFT L4/5-L5/S1 LUMBAR FACETS WITH FACET LOADING. . DIAGNOSTIC TESTS REVIEWEDMRI L/S 09/25/15. ASSESSMENTS LUMBAR FACET ARTHROPATHY - M12.88 TREATMENT OTHERS NOTES: DIAGNOSTIC LEFT L4/5-L5/S1 BLOCK. PREVENTIVE MEDICINE PAIN CLINIC TEACHING: PROCEDURE TEACHING PRINTED AND REVIEWED PROCEDURE INFORMATION WITH PATIENT. ALSO REVIEWED PRE-PROCEDURE INSTRUCTIONS. PATIENT VERBALIZED AN UNDERSTANDING. CASTILLO BEAULIEU 03/12/2018 4:10:57 PM > . DISPOSITION & COMMUNICATION FOLLOW UP POST (REASON: DIAGNOSTIC LEFT L4/5-L5/S1 BLOCK) ELECTRONICALLY SIGNED BY TY VELARDE ON 03/26/2018 AT 09:25 AM EST DISCLAIMER : THIS IS A VISIT SUMMARY EXTRACTED FROM THE [employer] CHART. IT IS NOT A COPY OF THE [employer] PROGRESS NOTE. TANISHA
== END ==
LOC: M PAIN 15:00
PROVIDERS: ATTEND Nurse Practitioner Family
DX: M12.88 Other specific arthropathies, not elsewhere classified, other specified site (principal); F34.1 Dysthymic disorder; G43.909 Migraine, unspecified, not intractable, without status migrainosus; D50.9 Iron deficiency anemia, unspecified; K64.9 Unspecified hemorrhoids; I10 Essential (primary) hypertension; K59.00 Constipation, unspecified; E55.9 Vitamin D deficiency, unspecified; G56.03 Carpal tunnel syndrome, bilateral upper limbs; H10.45 Other chronic allergic conjunctivitis; N39.3 Stress incontinence (female) (male); M46.02 Spinal enthesopathy, cervical region; Z79.899 Other long term (current) drug therapy; Z91.018 Allergy to other foods; J30.81 Allergic rhinitis due to animal (cat) (dog) hair and dander; Z91.048 Other nonmedicinal substance allergy status

== ENCOUNTER → 2018-05-02 | Outpatient (CLI) | payer OTHER ==
[~2018-05-02] MED LIST changes: +BUPIVACAINE HCL 0.25% 30 ML VIAL As Ordered ONE; +ISOVUE-M 300 61% 15ML VIAL (Q9967) As Ordered ONE; +LIDOCAINE 1% SDV INJ 30 ML VIAL As Ordered ONE
--- NOTE | 2018-05-02 15:46 | REP ---
Partial lumbar spine series: Three views . History: Injection procedure for pain. 18 seconds of fluoroscopy time is reported. Findings: A sequence of three fluoroscopically obtained last image hold procedural spot radiographs of the lumbar spine document needle position and contrast injection associated with injection procedure. Electronically Signed by Jah Mcclure MD 05/02/2018 03:37 P
--- NOTE | 2018-05-19 23:21 | ECWPNPC ---
PATIENT NAME: PAMELLA LONDONO : 1975 GENDER: FEMALE VISIT DATE: 05/02/2018 DISCHARGE DATE: 05/02/18 1454 VISIT LOCKED DATE TIME: PHYSICIAN: WOOD MARMOLEJO MD RESOURCE: WOOD MARMOLEJO MD REASON FOR APPOINTMENT 1. DIAGNOSTIC LEFT L4/5-L5/S1 BLOCK #2 HISTORY OF PRESENT ILLNESS HISTORY OF PRESENT ILLNESS: PAIN THE PATIENT DESCRIBES THE PAIN... FALL RISK SCREENING: SCREENING : NO FALLS IN THE PAST YEAR. CURRENT MEDICATIONS TAKING IRON 325 (65 FE) MG TABLET 1 TABLET ORALLY ONCE A DAY NEEDED, NOTES: PRN - WEEK AGO TAKING SUMATRIPTAN SUCCINATE 100 MG TABLET 1 TABLET NEEDED ONE TIME ORALLY ONCE A DAY, NOTES: NEUROLOGY PRN - 2 WEEKS AGO TAKING PROCTOFOAM HC 1-1 % FOAM 1 APPLICATION NEEDED RECTAL FOUR TIMES A DAY, NOTES: PRN - NONE RECENT TAKING PROVIGIL 100 MG TABLET 1 TABLET ORALLY BID, NOTES: NERUOLOGY 05/01/18 1200 TAKING DEXTROAMPHETAMINE SULFATE 30 MG TABLET 1 TABLET ORALLY BID, NOTES: 05/01/18 1200 TAKING VITAMIN D (CHOLECALCIFEROL) , NOTES: PRN - 3 DAYS AGO TAKING STOOL SOFTENER , NOTES: WITH IRON - WEEK AGO NOT-TAKING TROKENDI XR 200 MG CAPSULE EXTENDED RELEASE 24 HOUR ORAL ONCE DAILY, NOTES: NEUROLOGY - WEENING OFF MEDICATION LIST REVIEWED AND RECONCILED WITH THE PATIENT PAST MEDICAL HISTORY DEPRESSION/ANXIETY/DYSTHYMIA ADD MIGRAINE HEADACHES - NERUOLOGY ALLERGIC RHINITIS/CONJUNCTIVITIS IRON DEFICIENCY HEMORRHOIDS/INT CONSTIPATION HTN VITAMIN D DEFICIENCY STRESS INCONTINENCE H/O PE/INFARCT IDIOPATHIC HYPERSOMNIA (NEURO.) BACK PAIN CARPAL TUNNEL BILATERAL BONE SPURS CERVICAL AREA ALLERGIES ENVIRONMENTAL: NASAL CONGESTION - ALLERGY MOLD: NASAL CONGESTION - ALLERGY DOGS AND CATS: UNSURE OF REACTION - ALLERGY PINEAPPLE FLAVOR: TONGUE SWELLING - ALLERGY BANANA (DIAGNOSTIC): TONGUE SWELLING - ALLERGY STRAWBERRY (DIAGNOSTIC): TONGUE SWELLING - ALLERGY SURGICAL HISTORY C SECTION. 2006 CERVICAL ABLATION 2013 TONSILLECTOMY 1991 FAMILY HISTORY FATHER: , EMPHYSEMA MOTHER: , KIDNEY FAILURE SIBLINGS: ALIVE SON(S): ALIVE DAUGHTER(S): ALIVE PATERNAL GRAND FATHER: ALIVE, DIAGNOSED WITH DIABETES PATERNAL GRAND MOTHER: ALIVE MATERNAL GRAND FATHER: , HEART DISEASE MATERNAL GRAND MOTHER: , HYPERTENSION, DIABETES 3 BROTHER(S) , 2 SISTER(S) . 2 SON(S) , 1 DAUGHTER(S) . 1 SISTER NEPHRONTIC SYNDROME , HTN 1 BROTHER HYPOTHYRODISM 1 SISTER MS 1 SON AUTISTIC. SOCIAL HISTORY GENERAL: TOBACCO USE ARE YOU A: NONSMOKER . LATEX QUESTIONNAIRE LATEX ALLERGY : HAVE YOU EVER DEVELOPED ANY TYPE OF REACTION AFTER HANDLING LATEX PRODUCTS SUCH RUBBER GLOVES, CONDOMS, DIAPHRAGMS, BALLOONS, SOCKS, OR UNDERWEAR?NO LATEX ALLERGY : HAVE YOU EVER DEVELOPED ANY TYPE OF REACTION DURING OR AFTER DENTAL APPOINTMENT, VAGINAL/RECTAL EXAMINATION, SURGICAL PROCEDURE, OR ANY OTHER EXPOSURE?NO LATEX RISK : HAVE YOU EVER HAD ANY DIFFICULTY BREATHING OR HIVES AFTER EATING OR HANDLING ANY FRUITS, OR VEGETABLES; SUCH KIWI, BANANAS, STONE FRUITS, OR CHESTNUTSNO ALLERGIC TO BANANAS; NO PROBLEM WITH THE OTHER FRUITS. LATEX RISK : DO YOU HAVE A PREVIOUS PERSONAL HISTORY OF MORE THAN NINE SURGERIES, SPINA BIFIDA, OR REPEATED CATHERTIZATIONS? NO LATEX RISK : ARE YOU FREQUENTLY EXPOSED TO LATEX PRODUCTS IN YOUR OCCUPATION?NO DATE ASKED : 05/02/2018 ALCOHOL SCREENING DID YOU HAVE A DRINK CONTAINING ALCOHOL IN THE PAST YEAR?NO POINTS0 INTERPRETATIONNEGATIVE RECREATIONAL DRUG USE DRUG USE? NO . CAFFEINE CAFFEINE USE? YES , HOW OFTEN AND HOW MUCH? 32 OZ PER DAY OF CAFFIENE. SEXUAL HX HAD SEX IN THE LAST 12 MONTHS (VAGINAL, ORAL, OR ANAL)?YES WITHMEN ONLY USE PROTECTION?NO HAVE YOU EVER HAD AN STD?NO HIV / HEP-C SCREENING HIV TEST OFFERED TO PATIENT:YES DATE OFFERED:05/22/2016 TEST ACCEPTED:NO HEP-C TEST OFFERED TO PATIENT:NO REASON:PATIENT DECLINED CHRISTIAN [id number] NONE LANGUAGE LANGUAGES SPOKEN:BOTH SLOVAK AND BHUTANESE EDUCATION LEVEL OF EDUCATION:FINISHED COLLEGE LEARNING BARRIERS / SPECIAL NEEDS CHANGE FROM LAST VISIT?NO BARRIERS TO LEARNING?NO HEARING IMPAIRED?NO VISION IMPAIRED?YES COGNITIVELY IMPAIRED?NO :CORRECTIVE LENSES CONTACTS READINESS TO LEARN?YES LEARNING PREFERENCES?NO LEARNING CAPABILITIES PRESENT?YES EMOTIONAL BARRIERS?NO SPECIAL DEVICES?NO BUFFING MACHINE TENDER NEEDED?NO PAIN CLINIC PFS, CLERGY, PUBLIC HEALTH REFERRALS HAS THE PATIENT BEEN EDUCATED REGARDING HIS/HER PLAN OF CARE?YES REVIEWED CERVICAL PROCEDURE HAS THE PATIENT BEEN EDUCATED REGARDING PAIN, THE RISK FOR PAIN, THE IMPORTANCE OF EFFECTIVE PAIN MANAGEMENT, AND THE PAIN ASSESSMENT PROCESS?YES ADVANCE DIRECTIVE ADVANCE DIRECTIVE DISCUSSED WITH PATIENT:YES DECLINED HCP INFORMATION REVIEWED WITH PATIENT 03/12/18 1520 JSREVIEWED WITH PATIENT 05/02/18 1310 JS. HOSPITALIZATION/MAJOR DIAGNOSTIC PROCEDURE CHILDBIRTH 2002, 2004, 2006 PULMONARY EMBOLISM, WAS TREATED WITH COUMADIN FOR 6 MONTHS, UNKNOWN CAUSE. 01/2003 REVIEW OF SYSTEMS REVIEWED BY: PROVIDER: . CONSTITUTIONAL: ANY CHANGE IN YOUR MEDICAL CONDITION? NO . CHILLS NO . FEVER NO . INFECTION: DO YOU HAVE NEW INFECTIONS? NO . DO YOU HAVE HISTORY OF MRSA? NO . MUSCULOSKELETAL: ANY NEW PATTERNS OF PAIN OR NUMBNESS? NO . GASTROENTEROLOGY: ANY NEW CHANGE IN BOWEL CONTROL? NO . GENITOURINARY: ANY NEW CHANGE IN BLADDER CONTROL? YES - STRESS INCONTINENCE FOR 4 MONTHS. STATES HAS APPOINTMENT WITH PRIMARY CARE PROVIDER TO DISCUSS . IS THERE A CHANCE YOU COULD BE ? NO . HEMATOLOGY/LYMPH: DO YOU TAKE ANY BLOOD THINNERS? (FOR EXAMPLE- COUMADIN, PLAVIX, AGGRENOX, PLATEL, PRADAXA, OR XARELTO) NO . WHEN WAS YOUR LAST DOSE? DATE: TIME: . NEUROLOGY: HAVE YOU FALLEN IN THE PAST 12 MONTHS? NO . ANY NEW EXTREMITY NUMBNESS OR WEAKNESS? NO . CARDIOLOGY: DO YOU HAVE A PACEMAKER OR DEFIBRILLATOR? NO . RESPIRATORY: HAVE YOU BEEN SICK IN THE PAST WEEK? NO . FEVER NO . FLU LIKE SYMPTOMS? NO . COUGH NO . INTEGUMENTARY: DO YOU HAVE ANY RASHES OR OPEN SORES? NO . ALLERGIC/IMMUNO: ARE YOU ALLERGIC TO IV DYE? NO . ANY NEW ALLERGIES? NO . PSYCHIATRIC: DO YOU HAVE THOUGHTS OF HURTING YOURSELF OR SOMEONE ELSE? NO . ARE YOU ABUSED, NEGLECTED, OR IN AN UNSAFE ENVIRONMENT? NO . ENDOCRINOLOGY: ARE YOU DIABETIC? NO . OTHER: DO YOU NEED ANY PRESCRIPTIONS? NO . IF YES, PLEASE LIST: ____ . ANY NEW PROBLEMS WITH YOUR MEDICATIONS? NO . WHEN DID YOU LAST EAT? 05/01/181999 . WHEN DID YOU LAST DRINK? 05-02-18 0700 . WHAT DID YOU LAST DRINK? WATER . NAME OF PERSON DRIVING YOU HOME? BERENICE MARINO . DO YOU HAVE ANY OTHER QUESTIONS OR CONCERNS NO . VITAL SIGNS WT 167.4 LBS, HT 66 IN, BMI 27.02 INDEX, BP 124/83 MM HG, HR 82 /MIN, RR 16 /MIN, TEMP 97.7 F, OXYGEN SAT % 100%, SAFE IN ENV? (Y/N) YES, NA INITIALS SC 12:37, REVIEWED BY: JS. ASSESSMENTS SPONDYLOSIS OF LUMBAR REGION WITHOUT MYELOPATHY OR RADICULOPATHY - M47.816 (PRIMARY) SPONDYLOSIS OF LUMBOSACRAL REGION WITHOUT MYELOPATHY OR RADICULOPATHY - M47.817 PROCEDURES PN LUMBAR FACET BLOCK DIAGNOSTIC PRE PROCEDURE DIAGNOSIS LUMBAR SPONDYLOSIS, LUMBOSACRAL SPONDYLOSIS POST PROCEDURE DIAGNOSIS LUMBAR SPONDYLOSIS, LUMBOSACRAL SPONDYLOSIS PROCEDURE LEFT L4-L5 AND LEFT L5-S1 FACET BLOCK DIAGNOSTIC NUMBER [address] WOOD MARMOLEJO TELECOMMUNICATION LINES REPAIRER NONE ANESTHESIA LOCAL PRE PROCEDURE NOTE THE PATIENT WITH HISTORY OF CHRONIC LOW BACK PAIN. I EVALUATED THE PATIENT AND REVIEWED THE CHART. I WENT OVER THE RISKS, ALTERNATIVES, AND BENEFITS ASSOCIATED WITH THIS PROCEDURE. THE PATIENT WOULD LIKE TO PROCEED AND GAVE CONSENT TO PERFORM THE PROCEDURE. AGREED WITH THE PATIENT WE ARE DOING THIS PROCEDURE TO DETERMINE IF THE PATIENT IS A CANDIDATE FOR A RADIOFREQUENCY ABLATION OF THE FACETS JOINTS. THE PATIENT DENIES UNEXPLAINABLE WEIGHT LOSS, FEVER, CHILLS, OR NEW CHANGES IN URINARY OR BOWEL CONTROL DESCRIPTION OF PROCEDURE THE PATIENT WAS BROUGHT TO THE PROCEDURE ROOM AND PLACED IN THE PRONE POSITION. THE LUMBOSACRAL AREA WAS CLEANED WITH CHLORAPREP SOLUTION AND DRAPED ASEPTICALLY. THE PROCEDURE WAS DONE UNDER STERILE CONDITIONS. I CHECKED LATERALITY AND THE LEVEL WHERE THE PROCEDURE WAS GOING TO BE PERFORMED WITH THE PATIENT AND THE SUPPORTING STAFF AT THE MOMENT OF THE TIME OUT IN THE PROCEDURE ROOM. UNDER FLUOROSCOPIC GUIDANCE, TARGETS WERE SELECTED AT THE INTERSECTION OF THE LEFT TRANSVERSE PROCESS OF L4, L5 AND ALA OF S1 WITH ITS RESPECTIVE SUPERIOR ARTICULAR PROCESS. LIDOCAINE WAS USED TO NUMB THE SKIN AND THE SUBCUTANEOUS TISSUE BELOW IT. SPINAL NEEDLE, 22-GAUGE WAS ADVANCED UNDER FLUOROSCOPIC GUIDANCE AND FOLLOWING PATIENT FEEDBACK UNTIL THE TARGETS WERE REACHED. POSITION OF THE NEEDLES WAS VERIFIED WITH AP AND LATERAL VIEWS. AFTER PROPER POSITION OF THE NEEDLES WAS ACHIEVED, ISOVUE-M DYE 30% 0.1 ML WAS INJECTED AT EACH SITE SHOWING ADEQUATE SPREAD OF THE DYE. THEN A SOLUTION OF 0.4 ML OF BUPIVACAINE 0.25% WAS INJECTED AT EACH SITE. THERE WAS NO EVIDENCE OF BLOOD, PARESTHESIA OR CEREBROSPINAL FLUID DURING THE PROCEDURE. THE PATIENT WAS SENT TO THE RECOVERY ROOM. THE PATIENT WAS MOVING THE EXTREMITIES AND DOING WELL. THERE WAS NO COMPLICATION DURING THE PROCEDURE. FLUOROSCOPY TIME WAS 18 SECONDS POST PROCEDURE NOTE THE PATIENT WILL DOCUMENT HIS PAIN LEVEL AND RESPONSE TO THIS PROCEDURE EVERY 30 MINUTES. THE PATIENT WILL BE SEEN IN A FOLLOW UP IN THE NEXT FEW WEEKS. FURTHER DETERMINATION FOR HIS CASE WILL BE DONE AT THE NEXT VISIT. INSTRUCTIONS WERE GIVEN, QUESTIONS WERE ANSWERED, AND THE PATIENT EXPRESSED UNDERSTANDING AND AGREED WITH THE PLAN. I, CONNIE ELLINGTON, DOCUMENTED THE ABOVE INFORMATION ACTING A SCRIBE FOR DR. MARMOLEJO. I HAVE REVIEWED THE ABOVE DOCUMENT, WRITTEN BY CONNIE ELLINGTON SCRIBE AND I VERIFY THAT IT IS ACCURATE. DIAGNOSTIC IMAG[facility] FACET BLOCK (PAIN)[id number] PROCEDURE CODES 6045F RADXPS IN END [id number] PXD 09778 INJ PARAVERT F JNT L/S 1 LEV, [place]IFI[place]: [place] [address] INJ PARAVERT F JNT L/S 2 LEV, MODIFIERS: LT DISPOSITION & COMMUNICATION FOLLOW UP 3 WEEKS ELECTRONICALLY SIGNED BY WOOD MARMOLEJO MD, ON 05/19/2018 AT 07:39 PM EDT DISCLAIMER : THIS IS A VISIT SUMMARY EXTRACTED FROM THE [employer] CHART. IT IS NOT A COPY OF THE [employer] PROGRESS NOTE. MTDD
== END ==
LOC: M PAIN 12:15
PROVIDERS: ATTEND Anesthesiology
DX: G89.29 Other chronic pain (principal); M47.816 Spondylosis without myelopathy or radiculopathy, lumbar region; M47.817 Spondylosis without myelopathy or radiculopathy, lumbosacral region; G43.909 Migraine, unspecified, not intractable, without status migrainosus; I10 Essential (primary) hypertension; J30.89 Other allergic rhinitis; E55.9 Vitamin D deficiency, unspecified; E61.1 Iron deficiency; G47.11 Idiopathic hypersomnia with long sleep time; Z79.899 Other long term (current) drug therapy; Z91.018 Allergy to other foods; Z86.59 Personal history of other mental and behavioral disorders
CPT/HCPCS: 64493; 64494; Q9967

== ENCOUNTER → 2018-06-06 | Outpatient (CLI) | payer OTHER ==
[~2018-06-06] MED LIST changes: -BUPIVACAINE HCL 0.25% 30 ML VIAL As Ordered ONE; -DULO30CA PO; +DULO30CA9 PO; +HYDR-3715 PO; -ISOVUE-M 300 61% 15ML VIAL (Q9967) As Ordered ONE; -LIDOCAINE 1% SDV INJ 30 ML VIAL As Ordered ONE; -NAPR-50 PO; +NAPR-837 PO; -NORCOTAB PO
--- NOTE | 2018-06-06 16:46 | REP ---
Gastric emptying nuclear scintigraphy: History: Early satiety Technique: 0.975 mCi of technetium-99m sulfur colloid was ingested in two scrambled eggs and 6 ounces of water and sequential anterior and posterior images are acquired for an 89-minute imaging observation period. Regions of interest are drawn around the stomach to plot gastric emptying. Scintigraphic findings: Expected T1/2 is 90 minutes. 51 % emptying is observed in this patient during the 89-minute imaging observation period, for a calculated T1/2 in this patient of 84 minutes. Impression: Normal gastric emptying. Electronically Signed by Jah Mcclure MD 06/06/2018 04:38 P
== END ==
LOC: M RAD 12:48
PROVIDERS: ATTEND Physician Assistant
DX: R68.81 Early satiety (principal)
CPT/HCPCS: 78264; A9541

== ENCOUNTER → 2018-08-09 | Outpatient (REF) | payer OTHER ==
[~2018-08-09] MED LIST changes: +CIPR-249 PO
[2018-08-09 11:40] LABS: BASO # 0.1 10^3/uL (0.0-0.2); EOS # 0.1 10^3/uL (0.0-0.50); EOS % 1.7 % (0.0-3.0); HEMATOCRIT 41.1 % (36.0-47.0); HEMOGLOBIN 13.8 g/dl (12.0-15.5); LYMPH # 1.9 10^3/uL (1.5-4.5); LYMPH % 22.1 % (24.0-44.0); MEAN CORPUSCULAR HEMOGLOBIN 29.6 pg (27.0-33.0); MEAN CORPUSCULAR HGB CONC 33.6 g/dl (32.0-36.5); MEAN CORPUSCULAR VOLUME 88.2 fl (80.0-96.0); MONO # 0.6 10^3/uL (0.0-0.8); MONO % 7.6 % (0.0-5.0); NEUTROPHILS # 5.7 10^3/uL (1.8-7.7); NEUTROPHILS % 67.4 % (36.0-66.0); PLATELET COUNT, AUTOMATED 270 10^3/uL (150-450); RED BLOOD COUNT 4.66 10^6/uL (4.00-5.40); WHITE BLOOD COUNT 8.4 10^3/uL (4.0-10.0)
[2018-08-09 12:29] LABS: ALBUMIN 3.7 GM/DL (3.2-5.2); ALT/SGPT 18 U/L (12-78); BILIRUBIN,TOTAL 0.8 MG/DL (0.2-1.0); BLOOD UREA NITROGEN 14 MG/DL (7-18); CALCIUM LEVEL 8.9 MG/DL (8.5-10.1); CARBON DIOXIDE LEVEL 28 MEQ/L (21-32); CHLORIDE LEVEL 106 MEQ/L (98-107); CHOLESTEROL LEVEL 197 MG/DL (<200); CHOLESTEROL RISK RATIO 2.984 (<5); CREATININE FOR GFR 0.71 MG/DL (0.55-1.30); FREE T4 1.14 NG/DL (0.76-1.46); GLOMERULAR FILTRATION RATE > 60.0 (>58); GLUCOSE, FASTING 87 MG/DL (70-100); HDL CHOLESTEROL 66 MG/DL (>40); LDL CHOLESTEROL 118 MG/DL (<100); NON-HDL-C 131 MG/DL; POTASSIUM SERUM 4.3 MEQ/L (3.5-5.1); SODIUM LEVEL 140 MEQ/L (136-145); TOTAL 25(OH) VITAMIN D 52.7 NG/ML (30.0-100.0); TOTAL PROTEIN 7.4 GM/DL (6.4-8.2); TRIGLYCERIDES LEVEL 64 MG/DL (<150)
== END ==
LOC: M SFHCLERA 09:12
PROVIDERS: ATTEND Nurse Practitioner Family
DX: Z13.220 Encounter for screening for lipoid disorders (principal); E55.9 Vitamin D deficiency, unspecified; D50.9 Iron deficiency anemia, unspecified
CPT/HCPCS: 80053; 80061; 82306; 84439; 84443; 85025; G0463

== ENCOUNTER 2018-08-30 19:23 | Emergency (ER) | payer OTHER ==
[~2018-08-30] VITALS: Ht 167.6 cm; Wt 75.0 kg
[~2018-08-30 19:23] MED LIST changes: -CIPR-249 PO; -DULO1CAP3 PO; +DULO1CAP6 PO
[2018-08-30] MEDS ORDERED: KETOROLAC 30 MG/ML VIAL (J1885) IV ONE (22:00)
[2018-08-30] MEDS ORDERED: NS 1,000 ML IV ONE (22:00)
--- NOTE | 2018-08-31 00:39 | REPVR ---
EXAM: CT Abdomen and Pelvis Without Contrast EXAM DATE/TIME: 08/30/2018 9:59 PM CLINICAL HISTORY: 42 years old, female; Abdominal pain; Localized; Lower; Additional Info: UTI w/flank pain and pelvic pain TECHNIQUE: Imaging protocol: Axial computed tomography images of the abdomen and pelvis without contrast. Coronal and sagittal reformatted images were created and reviewed. Radiation optimization: All CT scans at this facility use at least one of these dose optimization techniques: automated exposure control; mA and/or kV adjustment per patient size (includes targeted exams where dose is matched to clinical indication); or iterative reconstruction. COMPARISON: CT ABD/PEL W/IV ORAL CONTRAS 10/01/2017 11:56 PM FINDINGS: Liver: Normal. No mass. Gallbladder and bile ducts: Gallbladder is contracted and diffusely thickened. No calcified gallstones. No biliary ductal dilatation. Pancreas: Normal. No ductal dilation. Spleen: Normal. No splenomegaly. Adrenals: Normal. No mass. Kidneys and ureters: Normal. No hydronephrosis. Stomach and bowel: No obstruction. No mucosal thickening. Negative for colonic diverticulitis. Moderate stool in the colon. Appendix: Appendix is normal. Intraperitoneal space: Normal. No free air. No significant fluid collection. Vasculature: No abdominal aortic aneurysm. Multiple phleboliths in the pelvis. Lymph nodes: Normal. No enlarged lymph nodes. Bladder: Bladder is decompressed. Reproductive: Uterus is normal. Bones/joints: No acute fracture. No dislocation. Soft tissues: Small umbilical hernia containing fat. There is no evidence of strangulation. IMPRESSION: 1. Negative for hydronephrosis or renal stones. 2. Bladder is decompressed. 3. Gallbladder is contracted and diffusely thickened. Correlate clinically. Electronically signed by: Sanjana Kemp On 08/31/2018 00:38:43 AM
[2018-08-31] MEDS ORDERED: CIPR-249 PO (00:54)
[2018-08-31] MEDS ORDERED: CIPROFLOXACIN 500 MG TAB PO ONE (01:00)
[2018-08-31 01:01] VITALS: BP 132/76
== END 2018-08-31 01:02 | disposition home or self-care (01) ==
LOC: M ED 19:23
DX: N39.0 Urinary tract infection, site not specified (principal); K82.8 Other specified diseases of gallbladder; G43.909 Migraine, unspecified, not intractable, without status migrainosus; K59.00 Constipation, unspecified; Z86.711 Personal history of pulmonary embolism; G47.00 Insomnia, unspecified; Z87.440 Personal history of urinary (tract) infections; J30.81 Allergic rhinitis due to animal (cat) (dog) hair and dander; J30.89 Other allergic rhinitis; Z91.018 Allergy to other foods; Z79.899 Other long term (current) drug therapy
CPT/HCPCS: 74176; 81001; 87088; 87186; 96361; 96374; 99284; J1885

== ENCOUNTER 2019-12-22 17:10 | Emergency (ER) | payer OTHER ==
[~2019-12-22] VITALS: Ht 167.6 cm; Wt 85.0 kg
[~2019-12-22 17:10] MED LIST changes: +CIPR-249 PO; -METH18TA2; +METH18TA6; -MONT10TA2 PO; +MONT10TA4 PO
[2019-12-22] MEDS ORDERED: VENL150C43 (17:23)
[2019-12-22] MEDS ORDERED: MODA100T13 (17:23)
[2019-12-22] MEDS ORDERED: TROK1CAP8 (17:23)
[2019-12-22] MEDS ORDERED: IBUP80TA (17:23)
[2019-12-22] MEDS ORDERED: AMOX500C (17:23)
[2019-12-22] MEDS ORDERED: NS 1,000 ML IV ONE (19:00)
[2019-12-22 19:20] LABS: BASO # 0.1 10^3/uL (0.0-0.2); BASO % 0.7 % (0.0-1.0); EOS # 0.1 10^3/uL (0.0-0.5); EOS % 1.1 % (0.0-3.0); HEMATOCRIT 45.3 % (36.0-47.0); HEMOGLOBIN 14.8 g/dl (12.0-15.5); LYMPH # 2.4 10^3/uL (1.5-5.0); LYMPH % 23.7 % (24.0-44.0); MEAN CORPUSCULAR HEMOGLOBIN 28.6 pg (27.0-33.0); MEAN CORPUSCULAR HGB CONC 32.7 g/dl (32.0-36.5); MEAN CORPUSCULAR VOLUME 87.5 fl (80.0-96.0); MONO # 0.8 10^3/uL (0.0-0.8); MONO % 7.5 % (0.0-5.0); NEUTROPHILS # 6.9 10^3/uL (1.5-8.5); NEUTROPHILS % 66.5 % (36.0-66.0); PLATELET COUNT, AUTOMATED 319 10^3/uL (150-450); RED BLOOD COUNT 5.18 10^6/uL (4.00-5.40); WHITE BLOOD COUNT 10.3 10^3/uL (4.0-10.0)
[2019-12-22 19:50] LABS: ALBUMIN 4.1 GM/DL (3.2-5.2); ALT/SGPT 20 U/L (12-78); BILIRUBIN,DIRECT < 0.1 MG/DL (0.0-0.2); BILIRUBIN,TOTAL 0.3 MG/DL (0.2-1.0); CK-MB VALUE MASS < 1.0 NG/ML (<3.6); CPK CREATINE PHOSPHOKINASE 45 U/L (26-192); LIPASE 149 U/L (73-393); MB/CK RELATIVE INDEX 2.22 (< OR =4); TOTAL PROTEIN 8.5 GM/DL (6.4-8.2); TROPONIN I < 0.02 NG/ML (< 0.10)
--- NOTE | 2019-12-22 20:22 | REPVR ---
PROCEDURE INFORMATION: Exam: US Abdomen, Limited; Right Upper Quadrant Exam date and time: 12/22/2019 8:12 PM Age: 44 years old Clinical indication: Abdominal pain; Acute; Additional info: Ruq pain, HX of stones TECHNIQUE: Imaging protocol: US abdomen. Real time ultrasound with image documentation. Limited exam focused on the right upper quadrant. COMPARISON: US RENAL ULTRASOUND 10/13/2014 1:55 PM FINDINGS: Liver: Normal. No masses. Gallbladder: Normal. No gallstones. There is no gallbladder wall thickening. Common bile duct: The common bile duct measures 4.9 mm. No mass or choledocholithiasis. Pancreas: Visualized pancreas is unremarkable. Right kidney: Right kidney measures 10.8 x 5.5 x 5 cm. IMPRESSION: No acute findings. Electronically signed by: Jose Edmonds On 12/22/2019 20:22:35 PM
--- NOTE | 2019-12-22 20:44 | REPVR ---
PROCEDURE INFORMATION: Exam: XR Chest, 2 Views Exam date and time: 12/22/2019 6:51 PM Age: 44 years old Clinical indication: Chest pain; Additional info: Chest discomfort TECHNIQUE: Imaging protocol: XR of the chest Views: 2 views. COMPARISON: CR Chest, 2 view PA, Lat 09/04/2016 11:16 AM FINDINGS: Lungs: Unremarkable. No consolidation. Pleural space: Unremarkable. No pleural effusion. No pneumothorax. Heart/Mediastinum: Unremarkable. No cardiomegaly. Bones/joints: Unremarkable. IMPRESSION: No acute findings. Electronically signed by: Jose Edmonds On 12/22/2019 20:44:51 PM
[2019-12-22 20:48] VITALS: BP 148/84
--- NOTE | 2019-12-23 09:31 | ECGEPIP ---
[facility] - ED Test Date: 2019-12-22 Pat Name: PAMELLA LONDONO Department: Room: - Gender: Female [employer] Educator: [facility] : 1975 Requested By: IVET Drew PA-C Order Number: [id number] Reading MD: Tsering Keith Measurements Intervals Spelter Rate: 67 P: 61 NM: 174 QRS: 51 QRSD: 90 T: 46 QT: 399 QTc: 421 Interpretive Statements SINUS RHYTHM NSTTW abnormalities Electronically Signed on 12-23-2019 9:31:14 EDT by Tsering Keith
== END 2019-12-22 20:49 | disposition home or self-care (01) ==
LOC: M ED 17:10
DX: R10.9 Unspecified abdominal pain (principal); R11.0 Nausea; F41.9 Anxiety disorder, unspecified; F32.9 Major depressive disorder, single episode, unspecified; I10 Essential (primary) hypertension; Z91.018 Allergy to other foods; Z91.048 Other nonmedicinal substance allergy status

== ENCOUNTER 2020-03-24 17:26 | Emergency (ER) | payer OTHER ==
[~2020-03-24] VITALS: Ht 167.6 cm; Wt 85.0 kg
[~2020-03-24 17:26] MED LIST changes: +AMOX500C; -BUPR150T3 PO; +BUPR150T4 PO; +IBUP80TA; +MODA100T13; -MONT10TA4 PO; +MONT5TAB2 PO; +TROK1CAP8; +VENL150C43
--- OUTSIDE RECORDS SUMMARY | 2020-03-24 17:32 | CCD | Summary of Care ---
Author Author [facility] Organization [facility] Address Unknown Phone Unavailable Care Team Providers Care Food Mixer Name Role Phone Junior Suresh PCP Reason for Visit * Reason Onset Date Comments Outreach 01/01/2020 pending mental heal th referral Encounter Details Care Team Description Date Type Department Tsering Flynn [address] [address] Outreach (pending mental health referral ) 01/01/2020 Telephone [facility] Care Management Allergies No Known Active Allergiesdocumented as of this encounter (statuses as of 01/02/2020) Medications * NOTE: Medications may not be up to date as of this document. Always verify current medication with the patient. End Date Status Medication Sig Dispensed Refills Start Date Active Naltrexone HCl 50 MG Oral 1 tablet 30 tablet 0 TabIndications: Alcohol daily 0 dependence in remission (HCC) Active Topiramate 50 MG Oral Tab Take 1 tablet 0 06/27 by mouth 2 0 (two) times a day Active Mirtazapine 15 MG Oral Take 1 tablet 0 02 Tab by mouth 0 nightly Active ferrous sulfate 325 (65 Take 1 tablet 0 FE) MG Oral tablet by mouth 2 0 (two) times a day Active Nicotine Polacrilex 4 MG CHEW 1 PIECE 0 07/24 Mouth/Throat Gum EVERY TWO 0 HOURS NEEDED NEEDED FOR CIGARETTE CRAVINGS. Active Citalopram Hydrobromide Take ONE 30 tablet 0 20 MG Oral tablet (20 mg 0 TabIndications: Mild total) by major depression, single mouth daily episode (HCC) Active Fexofenadine HCl 180 MG Take ONE 30 tablet 3 Oral TabIndications: Rash tablet (180 0 mg total) by mouth daily 03/19/2020 Active Multiple Vitamin Take ONE 30 tablet 6 (MULTI-VITAMIN) Oral tablet by 0 tabletIndications: mouth daily Alcohol dependence in remission (HCC) Active folic acid 1 MG Oral Take ONE 30 tablet 5 12/19 tabletIndications: tablet (1 mg 0 Alcohol dependence in total) by remission (HCC) mouth daily documented as of this encounter (statuses as of 01/02/2020) Active Problems Problem Noted Date Alcohol abuse 10/30/2013 Employment problem 10/30/2013 SIMA (generalized anxiety disorder) 10/30/2013 Marital conflict 10/30/2013 Major depressive disorder, recurrent episode, moderat e 10/30/2013 Depression 03/27/2011 Overview: Lost job Feb 2010 Psychosocial circumstance 03/27/2011 Routine general medical examination at a health care facility 07/07/2010 Overview: HIV neg 2010 documented as of this encounter (statuses as of 01/02/2020) Immunizations Name Administration Dates Next Due Tdap 09/11/2019 Tuberculin Test 03/27/2011 documented as of this encounter Social History Date Tobacco Use Types Packs/Day Years Used Former Smoker 2 Smokeless Tobacco: Never Used Comments: quit 08/2013 Drinks/Week oz/Week Comments Alcohol Use 19 Standard drinks or equivalent 15.8 socially, not to into xation Yes Sex Assigned at Date Recorded Not on file Date Recorded COVID-19 Exposure Response 12/19/2019 10:40 AM EDT In the last month, have you been in contact with No / Unsure someone who was confirmed or suspected to have Coronavirus / COVID-19? documented as of this encounter Last Filed Vital Signs Not on filedocumented in this encounter Miscellaneous Notes * Telephone Encounter - Tsering Flynn - 01/01/2020 10:42 AM EST Electrical And Instrument Engineer called and spoke to patient regarding pending mental health referral. Lesia andrade scheduled an appointment for patient with a clinician. documented in this encounter Plan of Treatment Care Team Description Date Type Specialty Ladan Lai, DRY WALL APPLICATOR[address] [address] 01/16/2020 Social Work Psychosocial Ilyas, Lucia, [facility] [address] [place] [address] [phone] 01/26/2020 Social Work Psychosocial Karla Strickland DO [address] [facility] [place] [address] [phone] 01/27/2020 Office Visit Family Practice Health Maintenance Due Date Last Done Comments Dental X-Ray: Full Mouth 1975 Pneumococcal Vaccine: 11/20/1981 Pediatrics (0 to 5 Years) and At-Risk Patients (6 to 64 Years) (1 of 1 - PPSV23) FLU SHOT (#1) 10/28/2019 PHQ-9 Depression 12/24/2019 11/24/2019 Screening Dental Oral Exam 05/23/2020 11/24/2019 Dental Prophylaxis 05/23/2020 11/24/2019 Dental X-Ray: Bitewings 11/23/2020 11/24/2019 CERVICAL CANCER-5 YEAR 11/23/2024 11/24/2019, SCREENING AGES 30-65 06/22/2010 TDAP/TD ADULT 09/10/2029 09/11/2019 documented as of this encounter Goals Goal Patient Associated Recent Progress Patient-Stat Aut hor Goal Type Problems ed? Increase the fiber in my diet Nutrition Josué Garland by having 5 fruits/vegetables TY Ro per day documented as of this encounter Results Not on filedocumented in this encounter Additional Health Concerns Health Status Noted Date Alive and well 11/24/2019 documented as of this encounter Insurance Type Payer Benefit Subscriber ID Effective Phone Address Plan / Dates Group Medicaid Mgd Care JMI CARE JIM [id number] 2018-P [phone] [address] [place] [address] HAR JIM CARE DENTAQUEST [id number] 2019-P [phone] [address] - IJM resent [facility] [address] Medicaid MEDICAID [place] MEDICAID [id number] 2013- [phone] COMPUTE R [place] [address] documented as of this encounter Advance Directives For more information, please contact: [phone] Patient Pin Setter Explanation Type Date Recorded Advance Directive - 06/21/2010 12:00 AM Health Care Proxy
--- OUTSIDE RECORDS SUMMARY | 2020-03-24 17:32 | CCD | Summary of Care ---
Author Author [facility] Organization [facility] Address Unknown Phone Unavailable Care Team Providers Care Engineering Design Manager Name Role Phone Junior Suresh PCP Ladan Lai GOLF SHOE SPIKE ASSEMBLER 13 [phone] Reason for Visit * Reason Onset Date Comments Refill Request 02/24/2020 Encounter Details Care Team Description Date Type Department Karla Strickland DO [address] [place] [address] [phone] Your Refill Medication Request 02/24/2020 Refill [facility] [address] [phone] Allergies No Known Active Allergiesdocumented as of this encounter (statuses as of 02/25/2020) Medications * NOTE: Medications may not be [...] in total) by remission (HCC) mouth daily Active docusate sodium 100 MG Take ONE 60 capsule 2 Oral capsuleIndications: capsule (100 0 Constipation, unspecified mg total) by constipation type mouth 2 (two) times a day as needed for constipation 02/24/2020 Discontinued (Reorder) docusate sodium 100 MG Take ONE 60 capsule 2 Oral capsuleIndications: capsule (100 0 Constipation, unspecified mg total) by constipation type mouth 2 (two) times a day as needed for constipation documented as of this encounter (statuses as of 02/25/2020) Active Problems Problem Noted Date Alcohol abuse 10/30/2013 Employment problem 10/30/2013 SIMA (generalized anxiety disorder) 10/30/2013 Marital conflict 10/30/2013 Major depressive disorder, recurrent episode, moderat e 10/30/2013 Depression 03/27/2011 Overview: Lost job Feb 2010 Psychosocial circumstance 03/27/2011 Routine general medical examination at a health care facility 07/07/2010 Overview: HIV neg 2010 documented as of this encounter (statuses as of 02/25/2020) Immunizations Name Administration Dates Next Due Influenza, 01/27/2020 Injectable,(cciiv4), Quadrivalent, Preservative Free Tdap 09/11/2019 Tuberculin Test 03/27/2011 documented as of this encounter Social History Date Tobacco Use Types Packs/Day Years Used Former Smoker 2 Smokeless Tobacco: Never Used Comments: quit 08/2013 Drinks/Week oz/Week Comments Alcohol Use 19 Standard drinks or equivalent 15.8 socially, not to into xation Yes Sex Assigned at Date Recorded Not on file Date Recorded COVID-19 Exposure Response 01/27/2020 2:32 PM EST In the last month, have you been in contact with No / Unsure someone who was confirmed or suspected to have Coronavirus / COVID-19? documented as of this encounter Last Filed Vital Signs Not on filedocumented in this encounter Plan of Treatment Health Maintenance Due Date Last Done Comments Dental X-Ray: Full Mouth 1975 Pneumococcal Vaccine: 11/20/1981 Pediatrics (0 to 5 Years) and At-Risk Patients (6 to 64 Years) (1 of 1 - PPSV23) Hepatitis C Screening 11/20/1993 PHQ-9 Depression 12/24/2019 11/24/2019 Screening Dental Oral Exam 05/23/2020 11/24/2019 Dental Prophylaxis 05/23/2020 11/24/2019 Dental X-Ray: Bitewings 11/23/2020 11/24/2019 CERVICAL CANCER-5 YEAR 11/23/2024 11/24/2019, SCREENING AGES 30-65 06/22/2010 TDAP/TD ADULT 09/10/2029 09/11/2019 FLU SHOT Completed 01/27/2020 documented as of this encounter Goals Goal Patient Associated Recent Progress Patient-Stat Aut hor Goal Type Problems ed? I will reduce my anxiety. Behavioral Major On track (01/26/20 20 No Stefan Lai depressive 10:18 AM EST) Ladan Goal disorder, GOLF SHOE SPIKE ASSEMBLER recurrent episode, moderate Note: Target Date: 04/26/20 Increase the fiber in my diet Nutrition No Josué Kemp by having 5 fruits/vegetables TY Ro per day documented as of this encounter Results Not on filedocumented in this encounter Visit Diagnoses Diagnosis Constipation, unspecified constipation type documented in this encounter Additional Health Concerns Health Status Noted Date Alive and well 11/24/2019 documented as of this encounter Insurance Type Payer Benefit Subscriber ID Effective Phone Address Plan / Dates Group Medicaid Mgd Care JIM CARE JIM [id number] 2018-P [phone] [address] [place] [address] [facility] JIM CARE DENTAQUEST [id number] 2019-P [phone] [address] - JIM resent [facility] [address] Medicaid MEDICAID [place] MEDICAID [id number] 2013- [phone] COMPUTE R Present [employer] [place] [id number] documented as of this encounter Advance Directives For more information, please contact: [phone] Patient Sand Polisher Explanation Type Date Recorded Advance Directive - 06/21/2010 12:00 AM Health Care Proxy
--- OUTSIDE RECORDS SUMMARY | 2020-03-24 17:32 | CCD | Summary of Care ---
Author Author [facility] Address Unknown Phone Unavailable Care Team Providers Care Sales And Marketing Intern Name Role Phone Junior Suresh PCP Ladan Lai [facility] 13 Reason for Visit * Reason Comments Virtual Visit (Telephone Only) Psychosocial Encounter Details Care Team Description Date Type Department Ladan Lai LMSW [address] [place] [phone] Virtual Visit (Telephone Only); Psychoso cial 01/16/2020 Social Work [facility] [address] [place] [phone] Allergies No Known Active Allergiesdocumented as of this encounter (statuses as of 01/20/2020) Medications * NOTE: Medications may not be [...] as of this encounter (statuses as of 01/20/2020) Active Problems Problem Noted Date Alcohol abuse 10/30/2013 Employment problem 10/30/2013 SIMA (generalized anxiety disorder) 10/30/2013 Marital conflict 10/30/2013 Major depressive disorder, recurrent episode, moderat e 10/30/2013 Depression 03/27/2011 Overview: Lost job Feb 2010 Psychosocial circumstance 03/27/2011 Routine general medical examination at a health care facility 07/07/2010 Overview: HIV neg 2010 documented as of this encounter (statuses as of 01/20/2020) Immunizations Name Administration Dates Next Due Tdap [...] on file Date Recorded COVID-19 Exposure Response 01/16/2020 5:03 PM EST In the last month, have you been in contact with No / Unsure someone who was confirmed or suspected to have Coronavirus / COVID-19? documented as of this encounter Last Filed Vital Signs Not on filedocumented in this encounter Progress Notes * Ladan Lai LMSW - 01/16/2020 5:00 PM EST I have identified this patient to be Shanda Coughlin, 1975 Psychosocial Assessment Summary Recommendations for treatment: Patient is recommended for ongoing individual therapy at this time. Patient will continue to meet with Ladan Lai LMSW for continued treatment. Clinical Summary: Patient is a 44 year old woman who was referred to behavioral health by her prim [place] care provider at this center. Patient reports that she has been experiencing significant depression and anxiety due to a number of psychosocial stressors. P mauri reports that she has experienced these sorts of symptoms in the past and has previously gone to therapy at this center to address them. Patient denies an y substance abuse currently or in the past. Patient's depressive and anxiety sym ptoms are documented in the Patient Health Questionnaire (PHQ-9) and Generalized Anxiety Disorder Screening Tool (SIMA-7), results attached. Patient was assessed for risk of suicide and risk is determined to be low because patient denies hav ing any thoughts of being better off . Patient was assessed for risk of viol ence against others and risk is determined to be low. Patient reports no history of acting violently towards others and denies having any current thoughts about wanting to do so. Patient's reported and observed symptoms have led to current diagnoses of Major Depressive Disorder and Generalized Anxiety Disorder. Cultural Formulation Interview (CFI) Cultural Definition of the Problem 1. What brings you here today? People understand their problems in their own way , which may be similar to or different from how doctors describe the problem. Morgan barnes would you describe your problem? Patient presents for a psychosocial assessment. Patent reports that she has been experiencing significant depressive and anxiety symptoms. 2. Sometimes people have different ways of describing their problem to their fam citlaly, friends, or others in their community. How would you describe your problem to them? Patient reports not really talking to other people about what she is experiencin g. 3. What troubles you most about your problem? Patient reports that her anxiety about various things troubles her the most. Cultural Perceptions of Cause, Context and Support Causes 4. Why do you think this is happening to you? What do you think are the causes o f your (PROBLEM)? Patient reports that various psychosocial stressors have been causing her depres julio and anxiety lately. 5. What do others in your family, your friends, or others in your community thin k is causing your (PROBLEM)? Patient reports not really talking with other people about what she is going thr ough. Stressors and Supports 6. Are there any kinds of support that make your (PROBLEM) better, such as suppo rt from family, friends, or others? Patient reports having some friends and family that she is able to talk to about certain things and get support from, but reports that she is not able to talk to them about what she is going through. 7. Are there any kinds of stresses that make your (PROBLEM) worse, such as diffi culties with money, or family problems? Patient denies. Role of Cultural Identity 8. For you, what are the most important aspects of your background or identity? Patient reports being unsure how to answer this question. 9. Are there any aspects of your background or identity that make a difference t o your (PROBLEM)? Patient denies. 10. Are there any aspects of your background or identity that are causing other concerns or difficulties for you? Patient denies. Cultural Factors Affecting Self-Coping and Past Help Seeking Self-Coping 11. Sometimes people have various ways of dealing with problems like (PROBLEM). What have you done on your own to cope with your (PROBLEM)? Patient reports that she tries to listen to music, read, and watch TV when she s tarts to feel stressed or overwhelmed. Past Help Seeking 12. Often people look for help from many different sources, including different kinds of doctors, helpers, or healers. In the past, what kinds of treatment, hel p, advice, or healing have your sought for your (PROBLEM)? What types of treatme nt were most useful? Not useful? Patient reports that she had been to therapy a few times in the past and that sh e overall has found it helpful. Barriers 13. Has anything prevented you from getting the help you need? For example, carol[place] y, work or family commitments, stigma or discrimination, or lack of services jany t understand your language or background? Patient denies. Cultural Factors Affecting Current Help Seeking Preferences 14. What kinds of help do you think would be most useful to you at this time for your (PROBLEM)? Patient reports being primarily interested in individual therapy at this time. 15. Are there other kinds of help that your family, friends or other people have suggested would be helpful for you now? Patient denies. Clinician-Patient Relationship Sometime doctors and patients misunderstand each other because they come from di fferent backgrounds or have different expectations. 16. Have you been concerned about this and is there anything we can do to provid e you with the care you need? Patient denies. Presenting Information Type of referral source: [facility] PCP. Current Symptoms Individual reports the following current symptoms: nervous/anxious, depressed mo od, difficulty with concentration and sleep disturbances. Frequency and Severity of Symptoms Difficulty concentrating frequency or severity: moderate, most days. Depressed m ood frequency or severity: moderate, most days. Nervous/anxious frequency or sev erity: moderate, most days. Sleep disturbance frequency or severity: moderate, m ost days. Past Risk and Alerts Abuse of animals: No Anger management: No Attempt to harm one's self: No Attempt to harm others: No Child abuse case - current: No Child abuse case - indicted or founded: No Destruction of property: No Fire setting: No Imminent stressors: No Non-compliance with medication: No Orders of protection: No Significant losses within the last 2 years, or experience of anniversary reactio n to losses over time: No Violence towards individuals: No Violence Screen/Assessment Violence Screen/Assessment Sources of Information: Clinical Interview, specify: Psychosocial Recent thought/intention or actual plan to hurt others? No History of threatening/attempting or actually hurting others? No Current and/or recent thoughts or behaviors that others might interpret as threa tening? No Other areas of concern including those from previous sections? No Is there evidence or violence risk? No Does the individual have access to lethal means/weapons? No Describe discussion with individual/family to secure access to lethal means/weap ons: Clinician asked patient if she had any access to lethal means or weapons an d patient denies. Identify and discuss impact of significant risk and protective mitigating factor s: Patient reports no history of acting violently towards others. Patient denies having any current thoughts about wanting to do so. Patient reports having some social supports to help her when she is feeling overwhelmed. Safety Management Plan: Describe in detail how elements of risk will be managed and/or how continued assessment will be conducted: Patient will continue to be a ssessed for risk in subsequent sessions. Mental Status Appearance: within normal limits Build/Stature: within normal limits Posture: within normal limits Eye Contact: average Activity: normal Speech: clear Attitude toward examiner: cooperative Mood: unremarkable Affect: appropriate to content Thought Process: intact Perception: no impairment Hallucinations: not present Thought Content: within normal limits Delusions: not present Suicidal ideation: none. Homicidal ideation: none. Cognition Impairment: within normal limits Intelligence Estimate: average Insight: intact Judgment: intact Patient Active Problem List Diagnosis Routine general medical examination at a health care facility Depression Psychosocial circumstance Alcohol abuse Employment problem SIMA (generalized anxiety disorder) Marital conflict Major depressive disorder, recurrent episode, moderate (HCC) Patient reports a pain score of "" in her . Location of Practitioner: Secure remote location Location of Patient: Home Patient accompanied by a staff member during the telemental health encounter?: N o Encounter disrupted by equipment failure?: No Ladan Lai LMSW Title: Collaborative Hot Tamale Worker Date: 01/16/2020 documented in this encounter Plan of Treatment Care Team Description Date Type Specialty Ladan Lai LMSW [address] [place] [phone] 01/26/2020 Social Work Psychosocial Karla Strickland DO [address] [place] [address] 01/27/2020 Office Visit Family Practice Health Maintenance [...] filedocumented in this encounter Visit Diagnoses Diagnosis Major depressive disorder, recurrent ep isode, moderate (HCC) - Primary Major depressive disorder, recurrent ep isode, moderate SIMA (generalized anxiety disorder) Generalized anxiety disorder Major depressive disorder, recurrent, m oderate Generalized anxiety disorder documented in this encounter Additional Health Concerns Health Status Noted Date Alive and well 11/24/2019 documented as of this encounter Insurance Type Payer Benefit Subscriber ID Effective Phone Address Plan / Dates Group Medicaid Mgd Care JIM CARE JIM [id number] 2018-P [phone] [address] [place] [address] documented as of this encounter Advance Directives For more information, please contact: [phone] Patient Heavy Machinery Assembler Explanation Type Date Recorded Advance Directive - 06/21/2010 12:00 AM Health Care Proxy
--- OUTSIDE RECORDS SUMMARY | 2020-03-24 17:32 | CCD | Summary of Care ---
Author Author [place] [facility] Health Organization [facility] Address Unknown Phone Unavailable Care Team Providers Care Ticket Writer Name Role Phone Junior Suresh PCP Ladan Lai [facility] 13 [phone] Reason for Visit * Reason Comments Virtual Visit (Telephone Only) Depression Anxiety Encounter Details Care Team Description Date Type Department Ladan Lai LMSW [address] [place] [phone] Virtual Visit (Telephone Only); Depressi on; Anxiety 01/26/2020 Social Work [facility] [address] [place] [phone] Allergies No Known Active Allergiesdocumented as of this encounter (statuses as of 01/27/2020) Medications * NOTE: Medications may not be [...] as of this encounter (statuses as of 01/27/2020) Active Problems Problem Noted Date Alcohol abuse 10/30/2013 Employment problem 10/30/2013 SIMA (generalized anxiety disorder) 10/30/2013 Marital conflict 10/30/2013 Major depressive disorder, recurrent episode, moderat e 10/30/2013 Depression 03/27/2011 Overview: Lost job Feb 2010 Psychosocial circumstance 03/27/2011 Routine general medical examination at a health care facility 07/07/2010 Overview: HIV neg 2010 documented as of this encounter (statuses as of 01/27/2020) Immunizations Name Administration Dates Next Due Tdap [...] on file Date Recorded COVID-19 Exposure Response 01/26/2020 10:15 AM EST In the last month, have you been in contact with No / Unsure someone who was confirmed or suspected to have Coronavirus / COVID-19? documented as of this encounter Last Filed Vital Signs Not on filedocumented in this encounter Progress Notes * Ladan Lai LMSW - 01/26/2020 10:15 AM EST I have identified this individual to be Shanda Coughlin, 1975 Individual is here to address symptoms of the followin. Major depressive disorder, recurrent episode, moderate (HCC) 2. SIMA (generalized anxiety disorder) Individual reports not taking medication. Current Symptoms Individual reports the following current symptoms: nervous/anxious, change in ap petite, depressed mood, loss of energy, difficulty with concentration and sleep disturbances. Frequency and Severity of Symptoms Change in appetite frequency or severity: moderate, some days. Difficulty concen trating frequency or severity: moderate, some days. Depressed mood frequency or severity: moderate, some days. Loss of energy frequency or severity: moderate, s ome days. Nervous/anxious frequency or severity: moderate, some days. Sleep dist urbance frequency or severity: moderate, some days. Individual is oriented to: time, place and person Individual appears with in normal limits. Individual's mood is unremarkable. Individual's affect i s appropriate to content. Hallucinations: not present Individual's thought content: Delusions: not present Suicidal ideation: none. Homicidal ideation : none. Intervention(s) provided: Clinician and patient reviewed what had happened in e patient's life since their last session together. Clinician and patient explo red patient's current psychosocial stressors and how they have been affecting he r thoughts and mood lately. Clinician listened actively to patient and provided emotional support and validation as needed. Clinician and patient reviewed telescope maintenance ing skills that patient can utilize as needed. Clinician and patient engaged in problem solving to determine the most effective ways for patient to resolve the issues that she is going through. Individual's response to intervention: Patient was engaged in today's session an d was responsive to clinician's interventions. Plan (indicate action plan between sessions): Patient will reflect on today's se ssion as she begins to consider the goals that she has for herself for therapy. Progress on goals addressed during the session: Goals Today Behavioral Health Goal I will reduce my anxiety. On track Nutrition Increase the fiber in my diet by having 5 fruits/vegetables per day Location of Practitioner: Secure remote location Location of Patient: Home Patient accompanied by a staff member during the telemental health encounter?: N o Encounter disrupted by equipment failure?: No Ladan Lai LMSW Title: Collaborative Proof Operator Date: 01/26/2020 documented in this encounter Plan of Treatment Care Team Description Date Type Specialty Karla Strickland DO [address] [place] [address] [phone] 01/27/2020 Office Visit Family Practice Ladan Lai LMSW [facility] [place] [phone] 02/09/2020 Social Work Psychosocial Health Maintenance Due Date Last Done Comments [...] ed? I will reduce my anxiety. Behavioral Mood problem On track (01/25 No Stefan Lai 10:18 AM EST) Cecille Pickering LMSW Note: Target Date: 04/26/20 Increase the fiber [...] Group Medicaid Mgd Care JIM CARE JIM [id number] 2018-P [phone] [address] [place] [address] documented as of this encounter Advance Directives For more information, please contact: [phone] Patient Dress Draper Explanation Type Date Recorded Advance Directive - 06/21/2010 12:00 AM Health Care Proxy
--- OUTSIDE RECORDS SUMMARY | 2020-03-24 17:32 | CCD | Summary of Care ---
Author Author [place] [facility] Health Organization [facility] Address Unknown Phone Unavailable Care Team Providers Care Civil Engineering Director Name Role Phone Junior Suresh PCP Ladan Lai [facility] 13 [phone] Reason for Visit * Reason Onset Date Comments Missed Appointment 02/09/2020 Encounter Details Care Team Description Date Type Department Ladan Lai, [facility] [address] [place] [phone] Missed Appointment 02/09/2020 Telephone [facility] Federico Luevanom [address] [place] [phone] Allergies No Known Active Allergiesdocumented as of this encounter (statuses as of 02/10/2020) Medications * NOTE: Medications may not be [...] as of this encounter (statuses as of 02/10/2020) Active Problems Problem Noted Date Alcohol abuse 10/30/2013 Employment problem 10/30/2013 SIMA (generalized anxiety disorder) 10/30/2013 Marital conflict 10/30/2013 Major depressive disorder, recurrent episode, moderat e 10/30/2013 Depression 03/27/2011 Overview: Lost job Feb 2010 Psychosocial circumstance 03/27/2011 Routine general medical examination at a health care facility 07/07/2010 Overview: HIV neg 2010 documented as of this encounter (statuses as of 02/10/2020) Immunizations Name Administration Dates Next Due Influenza, [...] encounter Miscellaneous Notes * Telephone Encounter - Ladan Lai LMSW - 02/09/2020 11:11 AM EST This clinician attempted to call patient in order to engage in a teletherapy ses julio. The patient did not answer the phone, and this clinician left a confident ial voice message saying that patient may call the center back at any time. Deb mcgregor has also sent the patient a message on [employer]. This clinician will remain available. Ladan Lai LMSW Collaborative Gold Buyer 02/09/20 documented in this encounter Plan of Treatment Health [...] No Stefan Lai depressive 10:18 AM EST) Cecille Pickering LMSW recurrent episode, moderate Note: Target Date: 04/26/20 [...] Group Medicaid Mgd Care JIM CARE JIM [id number] 2018-P [phone] [address] [place] [address] HARP JIM CARE DENTAQUEST [id number] 2019-P [phone] [address] - JIM resent [facility] [address] Medicaid MEDICAID [place] MEDICAID [id number] 2013- [phone] [employer] [place] [address] documented as of this encounter Advance Directives For more information, please contact: [phone] Patient [place] Redevelopment Site Manager Explanation Type Date Recorded Advance Directive - 06/21/2010 12:00 AM Health Care Proxy
--- OUTSIDE RECORDS SUMMARY | 2020-03-24 17:32 | CCD | Summary of Care ---
Author Author [place] [facility] Health Organization [facility] Address Unknown Phone Unavailable Care Team Providers Care Foreclosure Clerk Name Role Phone Junior Suresh PCP Ladan Lai TOASTER ELEMENT REPAIRER 13 [phone] Reason for Visit * Reason Comments Follow-up for: Encounter Details Care Team Description Date Type Department Karla Strickland DO [address] [place] [address] [phone] Leukocytosis, unspecified type (Primary Dx); Need for prophylactic vaccination and inoculation against influenza; Viral URI; Constipation, unspecified constipation type; Elevated white blood cell count, unspecified; Acute upper respiratory infection, unspecified; Constipation, unspecified; Encounter for immunization 01/27/2020 [facility] [address] [phone] Allergies No Known Active Allergiesdocumented as of this encounter (statuses as of 01/28/2020) Medications * NOTE: Medications may not be [...] tabletIndications: mouth daily Alcohol dependence in remission ([facility]) Active folic acid 1 MG Oral Take ONE 30 tablet 5 12/19 tabletIndications: tablet (1 mg 0 Alcohol dependence in total) by remission ([facility]) mouth daily Active docusate sodium 100 MG Take ONE 60 capsule 2 Oral capsuleIndications: capsule (100 0 Constipation, unspecified mg total) by constipation type mouth 2 (two) times a day as needed for constipation 02/06/2020 Active ibuprofen 400 MG Oral Take ONE 30 tablet 0 tabletIndications: Viral tablet (400 0 URI mg total) by mouth every 6 (six) hours as needed for mild pain for up to 10 days documented as of this encounter (statuses as of 01/28/2020) Active Problems Problem Noted Date Alcohol abuse 10/30/2013 Employment problem 10/30/2013 SIMA (generalized anxiety disorder) 10/30/2013 Marital conflict 10/30/2013 Major depressive disorder, recurrent episode, moderat e 10/30/2013 Depression 03/27/2011 Overview: Lost job Feb 2010 Psychosocial circumstance 03/27/2011 Routine general medical examination at a health care facility 07/07/2010 Overview: HIV neg 2010 documented as of this encounter (statuses as of 01/28/2020) Immunizations Name Administration Dates Next Due Influenza, [...] of this encounter Last Filed Vital Signs Reading Time Taken Comments Vital Sign 97/62 01/27/2020 2:48 PM EST Blood Pressure 67 01/27/2020 2:48 PM EST Pulse 36 C (96.8 F) 01/27/2020 2:48 PM EST Temperature - - Respiratory Rate - - Oxygen Saturation - - Inhaled Oxygen Concentration 79.8 kg (176 lb) 01/27/2020 2:48 PM EST Weight 167.6 cm (5' 6") 01/27/2020 2:48 PM EST Height 28.41 01/27/2020 2:48 PM EST Body Mass Index documented in this encounter Progress Notes * Amarilis Drew RN - 01/27/2020 2:15 PM EST I have identified this patient to be Shanda SARAH Coughlin -1975. Chief Complaint Patient presents with Follow-up for: No Known Allergies Flu vaccine/s administered as per provider's order. See vaccine imm/inj section. Patient tolerated vaccine(s) well. No adverse reactions were noted. Patient depa rted with no apparent distress. Appearance: alert, well appearing, and in no distress. Patient Communication and Education Assessment Learner: Patient Learning Needs reviewed: Immunizations: Yes Barriers: None Teaching Methods: Handout Verbalized Understanding: Communicates/understands Follow up plan: RTC PRN Amarilis Drew RN T * Karla Strickland, - 01/27/2020 2:15 PM EST SUBJECTIVE: HPI: I have identified this patient to be Shanda CoughlinSARAH -1975 w/ a PMHx of drug abuse in remission, depression who presents for Chief Complaint Patient presents with Follow-up for: #for the last two days has been having joint aches all over, feels like she is h aving blurry vision, (+) headaches, denies fever/cough/(+) congestion at night o nly -denies loss of taste or smell, denies SOB, CP -denies sore throat #rash - comes and goes - was seen by allergy and told to increase ghada to BID from qdaily -was given pramoxine lotion 1% Denies sick contacts #weight gain - patient is taking mirtazapine Patient has now been sober 9 months (drug/alcohol) #cbc done by salon assistant showed WBC of 4.3 and asked patient to be evaluated - thi s is within our reference range OBJECTIVE: PE: BP 97/62 (Orthostatic Site : Arm - Left, Orthostatic Position : Sitting, Orthost atic Cuff Size : Large Adult) | Pulse 67 | Temp 96.8 F (36 C) (Tempora l) | Ht 5' 6" (1.676 m) | Wt 176 lb (79.8 kg) | BMI 28.41 kg/m The patient appears well, in no apparent distress. Alert and oriented times thr ee, pleasant and cooperative. Vital signs are as noted by the nurse. Gen: no apparent distress; cooperative, pleasant Eyes: normal conjuctiva bilaterally; pupils equal, round, reactive to light; ext raocular muscles intact Ears: external ear canals normal bilaterally; no erythema evident in canals bila terally; tympanic membrane visualized bilaterally and shiny in appearance Nares: no evidence of nasal drainage bilaterally; turbinates normal without any erythema Oropharynx: no evidence of erythema or exudates Neck: supple, no thyromegaly, no adenopathy Lungs: clear to auscultation bilaterally; no wheezing, rhonchi or rales detected on exam; symmetric air movement bilaterally Heart: normal s1,s2; normal rate, regular rhythm; no murmurs, rubs, or gallops Abdomen: normoactive bowel sounds diffusely; soft, nondistended, nontender to pa lpation Procedures/Tests: Results for orders placed or performed in visit on 11/24/19 THINPREP AND HPV W GC/CHLAMYDIA Result Value Ref Range MOTOR VEHICLE LICENCE EXAMINER REPORT NILM HPV HR NON 16/18 Not Detected HPV GENOTYPE, 18 Not Detected HPV GENOTYPE, 16 Not Detected CHLAMYDIA TRACHOMATIS Not Detected NEISSERIA GONORRHOEAE NUCLEIC* Not Detected HIV 1 & 2 Result Value Ref Range HIV I & II - NON REACTIVE non-reactive HIV KIT LOT # [id number] HIV KIT EXP DATE 2020-06-18 INTERNAL CONTROL VALID- HIV 1 & 2 valid ASSESSMENT/PLAN: After a discussion of the available treatment options (including risks, benefits and alternatives), and using a shared-decision making model as applicable, the following plan was reached in collaboration with the patient (and/or his/her gua rdian as indicated): 1. Need for prophylactic vaccination and inoculation against influenza - FLUCELVAX, INFLUENZA, CCIIV4, PSRV FREE, 4YRS+, 0.5 ML, PREFILLED SYRINGE; Fut ure - FLUCELVAX, INFLUENZA, CCIIV4, PSRV FREE, 4YRS+, 0.5 ML, PREFILLED SYRINGE 2. Viral URI Muscle aches, congestion, headaches, reassurance provided. Return precautions di scussed. Given COVID pandemic recommended isolation - ibuprofen 400 MG Oral tablet; Take ONE tablet (400 mg total) by mouth every 6 (six) hours as needed for mild pain for up to 10 days Dispense: 30 tablet; Refi ll: 0 3. Constipation, unspecified constipation type Discussed increased water intake and fiberous foods - docusate sodium 100 MG Oral capsule; Take ONE capsule (100 mg total) by mouth 2 (two) times a day as needed for constipation Dispense: 60 capsule; Refill: 2 4. ;eukocytosis reviewed lab work - wnl for our reference range. Normal CBC in October in our clinic -patient reassurance provided. Future Appointments Date Time Provider Department Center 02/09/2020 11:00 AM Ladan Lai LMSW [facility] LARRY Strickland DO Family Medicine * Maddie Delacruz MA - 01/27/2020 2:15 PM EST I have identified this patient to be SARAH Sparrow -1975. Chief Complaint Patient presents with Follow-up for: BP 97/62 (Orthostatic Site : Arm - Left, Orthostatic Position : Sitting, Orthost atic Cuff Size : Large Adult) | Pulse 67 | Temp 96.8 F (36 C) (Tempora l) | Ht 5' 6" (1.676 m) | Wt 176 lb (79.8 kg) | BMI 28.41 kg/m Patient states she has head & joints pain. documented in this encounter Plan of Treatment Care Team Description Date Type Specialty Ladan Lai LMSW [facility] [place] [phone] 02/09/2020 Social Work Psychosocial Health Maintenance Due Date Last Done Comments Dental X-Ray: Full Mouth 1975 Pneumococcal Vaccine: 11/20/1981 Pediatrics (0 to 5 Years) and At-Risk Patients (6 to 64 Years) (1 of 1 - PPSV23) PHQ-9 Depression 12/24/2019 11/24/2019 Screening Dental Oral [...] per day documented as of this encounter Procedures Comments Procedure Name Priority Date/Time Associated Diag nosis FLUCELVAX, INFLUENZA, Routine 01/27/2020 Need for prophylactic CCIIV4, PSRV FREE, 4YRS+, 3:54 PM EST vaccination and 0.5 ML, PREFILLED SYRINGE inoculation against influenza documented in this encounter Results Not on filedocumented in this encounter Visit Diagnoses Diagnosis Leukocytosis, unspecified type - Primar y Need for prophylactic vaccination and i noculation against influenza Viral URI Acute upper respiratory infections of u nspecified site Constipation, unspecified constipation type Acute upper respiratory infection, unsp ecified Encounter for immunization documented in this encounter Additional Health Concerns Health Status Noted Date Alive and well 11/24/2019 documented as of this encounter Insurance Type Payer Benefit Subscriber ID Effective Phone Address Plan / Dates Group Medicaid Mgd Care JIM CARE JIM [id number] 2018-P [phone] [address] [place] [address] documented as of this encounter Advance Directives For more information, please contact: [phone] Patient Publication Distributor Explanation Type Date Recorded Advance Directive - 06/21/2010 12:00 AM Health Care Proxy
--- OUTSIDE RECORDS SUMMARY | 2020-03-24 17:32 | CCD | Summary of Care ---
Author Author [facility] Address Unknown Phone Unavailable Care Team Providers Care Assembler Small Products Name Role Phone Argelia Barrera PCP Reason for Visit * Reason Comments Nose Problem Encounter Details Care Team Description Date Type Department Esteban Ball MD [address] [facility] [address] [place] [address] H/O nasal septoplasty (Primary Dx); Nasal valve collapse 12/24/2019 Office Visit [facility] at [address] [place] [address] Allergies No Known Allergiesdocumented as of this encounter (statuses as of 12/25/2019) Medications End Date Status Medication Sig Dispensed Refills Start Date Active Dexmethylphenidate HCl ER Take by mouth 0 25 MG Oral Capsule Extended Release 24 Hour Active MODAFINIL PO Take by mouth 0 documented as of this encounter (statuses as of 12/25/2019) Active Problems Problem Noted Date DNS (deviated nasal septum) 08/04/2019 Nasal valve collapse 08/04/2019 H/O nasal septoplasty 08/04/2019 Nasal deformity, acquired 08/04/2019 documented as of this encounter (statuses as of 12/25/2019) Social History Date Tobacco Use Types Packs/Day Years Used Never Smoker Smokeless Tobacco: Never Used Drinks/Week oz/Week Comments Alcohol Use Never Alcohol Habits Answer Date Recorded How often do you have a drink containing alcohol? Never 08/04/2019 How many drinks containing alcohol do you have on No t asked a typical day when you are drinking? How often do you have six or more drinks on one Not asked occasion? Sex Assigned at Date Recorded Not on file Date Recorded COVID-19 Exposure Response 12/24/2019 10:42 AM EDT In the last month, have you been in contact with No / Unsure someone who was confirmed or suspected to have Coronavirus / COVID-19? documented as of this encounter Last Filed Vital Signs Not on filedocumented in this encounter Progress Notes * Esteban Ball MD - 12/24/2019 11:15 AM EDT Mrs. Coughlin comes in today for further discussion of her nasal surgery. She h as functional nasal airway issues, and we have discussed nasal valve repair revi julio septoplasty turbinate reduction. She is aware that she will need additiona l cartilage graft and we have discussed cadaveric rib cartilage to help resuppor t the nose and fix her valvular deficiencies. We also discussed rhinoplasty wit h things like tip elevation and dorsal reduction. All her questions are answere d. We spent 15 minutes in discussion and 20 minutes on the appointment. documented in this encounter Plan of Treatment Health Maintenance Due Date Last Done Comments MMR Vaccines (1 of - 11/20/1976 Standard series) Varicella Vaccines (1 of 11/20/1976 2 - 2-dose childhood series) DTaP,Tdap,and Td Vaccines 11/20/1982 (1 - Tdap) HIV Screening 11/20/1988 Cervical Cancer Screening 11/20/1996 5 years Influenza Vaccine 11/27/2019 Pneumococcal Vaccine: 65+ 11/20/2040 Years (1 of 1 - PPSV23) HIB Vaccines Aged Out No longer eligible based on patient's age to complete this topic Hepatitis A Vaccines Aged Out No longer eligibl e based on patient's age to complete this topic Hepatitis B Vaccines Aged Out No longer eligibl e based on patient's age to complete this topic IPV Vaccines Aged Out No longer eligible based on patient's age to complete this topic Pneumococcal Vaccine: Aged Out No longer eligib le based on patient's age to Pediatrics (0 to 5 Years) complete this topic and At-Risk Patients (6 to 64 Years) documented as of this encounter Results Not on filedocumented in this encounter Visit Diagnoses Diagnosis H/O nasal septoplasty - Primary Other postprocedural status Nasal valve collapse Other diseases of nasal cavity and sinu ses documented in this encounter
--- OUTSIDE RECORDS SUMMARY | 2020-03-24 17:33 | CCD ---
Author Author [facility] Address Unknown Phone Unavailable Support Name Relationship Address Phone BRY BERENICE Next Of Kin [id number] [place] [address] Ronda BAE Next Of Kin [address] [place] [address] [employer] Next Of Kin [address] [place] [address] [place] [address] AAFES Next Of Kin [address] [place] [address] [place] [address] BERENICE MARINO Next Of [facility] [id number] [place] [address] BERENICE MARINO ECON [id number] [place] [address] [phone] Care Team Providers Care Awning Finisher Name Role Phone FERNÁNDEZ, LADAN Unavailable Unavailable NURSING, LARRY Unavailable Unavailable Tacho Kasper Unavailable Edy George Unavailable HONEY DE SOUZA Unavailable Unavailable Azadian, (R) Emy Unavailable Radha, Hyacinth Unavailable Radha, Hyacinth Unavailable Connie Ball MD Unavailable Unavailable Connie Ball MD Unavailable Unavailable Connie Ball MD Unavailable Unavailable Connie Ball MD Unavailable Unavailable Connie Ball MD Unavailable Unavailable SuryadeConnie burciaga MD Unavailable Unavailable SuryadevarConnie brown Americ BELTRÁN Unavailable Unavailable SuryadevarConnie brown MD Unavailable Unavailable SuryadevarConnie brown MD Unavailable Unavailable SuryadevarConnie brown MD Unavailable Unavailable SuryadeConnie burciaga MD Unavailable Unavailable SuryadeConnie burciaga MD Unavailable Unavailable SuryadeConnie burciaga MD Unavailable Unavailable SuryadeConnie burciaga MD Unavailable Unavailable SuryadeConnie burciaga MD Unavailable Unavailable SuryadevarConnie brown MD Unavailable Unavailable SuryadeConnie burciaga MD Unavailable Unavailable SuryadeConnie burciaga MD Unavailable Unavailable SuryadeConnie burciaga MD Unavailable Unavailable SuryadevarConnie brown MD Unavailable Unavailable SuryadevarConnie brown MD Unavailable Unavailable SuryadeConnie burciaga MD Unavailable Unavailable SuryadeConnie burciaga MD Unavailable Unavailable SuryadeConnie burciaga MD Unavailable Unavailable SuryadevarConnie brown MD Unavailable Unavailable SuryadevarConnie brown MD Unavailable Unavailable SuryadevarConnie brown MD Unavailable Unavailable SuryadeConnie burciaga MD Unavailable Unavailable SuryadevarConnie brown MD Unavailable Unavailable SuryadevarConnie brown MD Unavailable Unavailable SuryadeConnie burciaga MD Unavailable Unavailable SuryadeConnie burciaga MD Unavailable Unavailable SuryadeConnie burciaga MD Unavailable Unavailable SuryadeConnie burciaga MD Unavailable Unavailable SuryadeConnie burciaga MD Unavailable Unavailable SuryadeConnie burciaga MD Unavailable Unavailable SuryadeConnie burciaga MD Unavailable Unavailable SuryadeConnie burciaga MD Unavailable Unavailable SuryadeConnie burciaga MD Unavailable Unavailable SuryadeConnie burciaga MD Unavailable Unavailable SuryadeConnie burciaga MD Unavailable Unavailable SuryadeConnie burciaga MD Unavailable Unavailable SuryadeConnie burciaga MD Unavailable Unavailable SuryaConnie ziegler MD Unavailable Unavailable SuryadeConnie burciaga MD Unavailable Unavailable SuryadeConnie burciaga MD Unavailable Unavailable SuryadeConnie burciaga MD Unavailable Unavailable Suryadevara, C Amar MD Unavailable Unavailable Connie Ball MD Unavailable Unavailable Connie Ball MD Unavailable Unavailable Connie Ball MD Unavailable Unavailable Connie Ball MD Unavailable Unavailable Connie Ball MD Unavailable Unavailable Karla Strickland (R) Unavailable Diaz Tyler MD Unavailable Unavailable AliDiaz MD Unavailable Unavailable Ali, Diaz MD Unavailable Unavailable Ali, Diaz MD Unavailable Unavailable Ali, Diaz MD Unavailable Unavailable Ali, Diaz MD Unavailable Unavailable Ali, Diaz MD Unavailable Unavailable Ali, Diaz MD Unavailable Unavailable Ali, Diaz MD Unavailable Unavailable Ali, Diaz MD Unavailable Unavailable Ali, Diaz MD Unavailable Unavailable Ali, Diaz MD Unavailable Unavailable Ali, Diaz MD Unavailable Unavailable Ali, Diaz MD Unavailable Unavailable Ali, Diaz MD Unavailable Unavailable Ali, Diaz MD Unavailable Unavailable Ali, Diaz MD Unavailable Unavailable Ali, Diaz MD Unavailable Unavailable Ali, Diaz MD Unavailable Unavailable Ali, Diaz MD Unavailable Unavailable Ali, Diaz MD Unavailable Unavailable Ali, Diaz MD Unavailable Unavailable Ali, Diaz MD Unavailable Unavailable Ali, Diaz MD Unavailable Unavailable Ali, Diaz MD Unavailable Unavailable Ali, Diaz MD Unavailable Unavailable Ali, Diaz MD Unavailable Unavailable Ali, Diaz MD Unavailable Unavailable Ali, Diaz MD Unavailable Unavailable Ali, Diaz MD Unavailable Unavailable Ali, Diaz MD Unavailable Unavailable Ali, Diaz MD Unavailable Unavailable Ali, Diaz MD Unavailable Unavailable Ali, Diaz MD Unavailable Unavailable Ali, Diaz MD Unavailable Unavailable Ali Diaz MD Unavailable Unavailable Ali, Diaz MD Unavailable Unavailable Ali, Diaz MD Unavailable Unavailable Ali, Diaz MD Unavailable Unavailable Ali, Diaz MD Unavailable Unavailable Ali, Diaz MD Unavailable Unavailable Ali, Diaz MD Unavailable Unavailable Ali, Diaz MD Unavailable Unavailable Ali, Diaz MD Unavailable Unavailable Ali, Diaz MD Unavailable Unavailable Ali, Diaz MD Unavailable Unavailable Ali, Diaz MD Unavailable Unavailable Ali, Diaz MD Unavailable Unavailable Ali, Diaz MD Unavailable Unavailable Standefer, Ginna Unavailable Unavailable Standefer, Ginna Unavailable Unavailable Junior Suresh Unavailable Re-disclosure Warning The records that you are about to access may contain information from federally-assisted alcohol or drug abuse programs. If such information is present, then the following federally mandated warning applies: This information has been disclosed to you from records protected by federal confidentiality rules (42 CFR part 2). The federal rules prohibit you from making any further disclosure of this information unless further disclosure is expressly permitted by the written consent of the person to whom it pertains or as otherwise permitted by 42 CFR part 2. A general authorization for the release of medical or other information is NOT sufficient for this purpose. The Federal rules restrict any use of the information to criminally investigate or prosecute any alcohol or drug abuse patient.The records that you are about to access may contain highly sensitive health information, the redisclosure of which is protected by Article 27-F of the [facility] Public Health law. If you continue you may have access to information: Regarding HIV / AIDS; Provided by facilities licensed or operated by the [facility] Office of Mental Health; or Provided by the [facility] Office for People With Developmental Disabilities. If such information is present, then the following [facility] mandated warning applies: This information has been disclosed to you from confidential records which are protected by state law. State law prohibits you from making any further disclosure of this information without the specific written consent of the person to whom it pertains, or as otherwise permitted by law. Any unauthorized further disclosure in violation of state law may result in a fine or custodial sentence or both. A general authorization for the release of medical or other information is NOT sufficient authorization for further disc losure. Allergies and Adverse Reactions Type Description Substance Reaction Status Data Source(s ) SYSTEMIC NO KNOWN ALLERGIES NO KNOWN ALLERGIES [facility] Family History Family Member Name Family Member Gender Family Member Status Date o f Status Description Data Source(s) Unknown Unknown Problem [facility] ([facility] ) Unknown Male Problem [facility] ([facility] Encounters Encounter Providers Location Date Indications Data Source(s ) Outpatient Attender: Esteban Ball MD 04/14/2020 12:00: 00 AM [facility] Outpatient Attender: LADAN FERNÁNDEZ 03/24/2020 03:40: [address] [facility] Patient admitted. Outpatient Attender: LADAN FERNÁNDEZ 03:31:10 PM [facility] 03/24/2020 03:49:[address] [facility] Patient admitted. Outpatient Attender: Esteban Ball MD 03/24/2020 12:00: 00 AM EST [facility] Outpatient Attender: Karla Strickland 02/24/2020 10:04:10 AM EST [facility] Patient admitted. Outpatient Attender: LADAN FERNÁNDEZ 02/09/2020 11:13: 25 AM EST [facility] Patient admitted. Outpatient Attender: Karla Strickland 01/27/2020 02:33:55 PM EST [facility] Patient admitted. Outpatient Attender: LADNA FERNÁNDEZ 10:15:48 AM EST - 01/26/2020 10:29:[address] [facility] Patient admitted. Outpatient Attender: LADAN FERNÁNDEZ 01/16/2020 05:04: 05 PM EST [facility] Patient admitted. Outpatient Attender: HONEY DE SOUZA 01/01/2020 10:46:4 3 AM EST [facility] Patient admitted. Outpatient Attender: Esteban Ball MD [id number] 12/24/2019 12:00:00 AM EDT [facility] Outpatient Attender: Junior Suresh 12/20/2019 09:41:40 AM E DT [facility] Patient admitted. Outpatient Attender: Diaz Tyler MD Main office - [place] 12/12/2019 11:45:00 AM EDT [facility] ([facility], ) Outpatient 12/10/2019 03:08:30 PM EDT [facility] Patient admitted. Outpatient Attender: HONEY DE SOUZA 12/09/2019 02:07:2 9 PM EDT [facility] Patient admitted. Outpatient 11/29/2019 09:03:42 AM EDT [facility] Patient admitted. Outpatient Attender: HONEY DE SOUZA 11/29/2019 09:02:4 7 AM EDT [facility] Patient admitted. Outpatient Attender: Emy Alicea 11/24/2019 03:46:20 PM EDT [facility] Patient admitted. Outpatient Attender: Karla Strickland 10/28 01:03:21 PM EDT - 11/24/2019 02:22:40 PM EDT [facility] Patient admitted. Outpatient Attender: Ginna Geller 10/28/2019 09:35:28 A M EDT [facility] Patient admitted. Outpatient Attender: Junior Suresh 0 01:49:10 PM EDT - 10/24/2019 07:48:47 PM EDT [facility] Patient admitted. Outpatient 10/16/2019 11:27:03 AM EDT [facility] Patient admitted. Outpatient 10/10/2019 09:20:39 AM EDT [facility] Patient admitted. Outpatient Attender: Junior Suresh 0 02:21:16 PM EDT - 10/10/2019 06:18:00 PM EDT [facility] Patient admitted. Outpatient Attender: Edy George 10/08/2019 02:28:05 PM EDT [facility] Patient admitted. Outpatient 10/06/2019 03:02:21 PM EDT [facility] Patient admitted. Outpatient 10/06/2019 10:07:18 AM EDT [facility] Patient admitted. Outpatient Attender: Karla Strickland 08/2019 12:37:43 PM EDT - 10/06/2019 10:08:45 AM EDT [facility] Patient admitted. Outpatient Attender: Tacho Kasper 09/29/2019 11:28:56 AM EDT [facility] Patient admitted. Outpatient Attender: Karla Strickland 09/26/2019 11:03:34 AM EDT [facility] Patient admitted. Outpatient Attender: Karla Strickland 09/18/2019 10:26:40 AM EDT [facility] Patient admitted. Outpatient Attender: LARRY GTZ 020 12:25:50 PM EDT - 09/11/2019 01:04:11 PM EDT [facility] Patient admitted. Outpatient 09/10/2019 08:38:30 AM EDT [facility] Patient admitted. Outpatient Attender: Karla Strickland 08/26 09:38:34 AM EDT - 09/08/2019 04:40:12 PM EDT [facility] Patient admitted. Outpatient Attender: Esteban Ball MD 09/01/2019 12:00: 00 AM EDT [facility] Outpatient Attender: Karla Strickland 07/27 09:13:34 AM EDT - 08/12/2019 10:28:03 AM EDT [facility] Patient admitted. Outpatient Attender: Esteban Ball MD [id number] 08/04/2019 12:00:00 AM EDT [facility] Outpatient Attender: Junior Suresh 0 11:12:25 AM EDT - 07/31/2019 02:47:53 PM EDT [facility] Patient admitted. Outpatient Attender: Hyacinth Garcai 07/28/2019 09:05:34 AM E DT [facility] Patient admitted. Outpatient Attender: Diaz Tyler MD Main office - [place] 07/02/2019 02:45:00 PM EDT [facility] ([facility]) Outpatient Attender: Esteban Ball MD 05/26/2019 12:00: 00 AM [facility] Outpatient Attender: Diaz Tyler MD Main office - [place] 02/12/2019 09:45:00 AM EST [facility] ([facility]) Immunizations Vaccine Date Status Description Data Source(s) Influenza, injectable, MDCK, preservative free, jasmin valent 01/27/2020 12:00:00 AM EST completed Influenza, Injectable,(cciiv 4), Quadrivalent, Preservative Free 01/27/2020 [facility] Tdap 09/11/2019 12:00:00 AM EDT completed Tdap 09/11/2019 [facility] Medications Medication Brand Name Start Date Product Form Dose Route Admi nistrative Instructions Pharmacy Instructions Status Indications Reaction Description Data Source(s) 15 mg 03/04/2020 12:00:00 AM EST capsule,ER biphasic 50- 50 60 TAKE ONE CAPSULE BY MOUTH EVERY MORNING AND TAKE ONE CAPSULE BY MOUTH AT NOON MAXIMUM DAILY DOSE = TWO CAPSULES TAKE ONE CAPSULE BY MOUTH EVERY MORNING AND TAKE ONE CAPSULE BY MOUTH AT NOON MAXIMUM DAILY DOSE = TWO CAPSULES SOLD: 03/12/2020 [facility] Docusate Sodium 100 MG Oral Capsule docusate sodium 10 0 MG Oral capsule docusate sodium 100 MG Oral capsule 02/24/2020 12:00:00 AM EST 100 mg Oral active Constipation, unspecified constipation type Take ONE c apsule (100 mg total) by mouth 2 (two) times a day as needed for constipation [facility] Constipation, unspecified constipation t ype 15 mg 01/29/2020 12:00:00 AM EST capsule,ER biphasic 50- 50 60 TAKE ONE CAPSULE BY MOUTH EVERY MORNING AND ONE CAPSULE BY MOUTH A NOON MAXIMUM DAILY DOSE = 2 TABLETS TAKE ONE CAPSULE BY MOUTH EVERY MORNING AND ONE CAPSULE BY MOUTH A NOON MAXIMUM DAILY DOSE = 2 TABLETS SOLD: 02/01/2020 [facility] Docusate Sodium 100 MG Oral Capsule docusate sodium 10 0 MG Oral capsule docusate sodium 100 MG Oral capsule 01/27/2020 12:00:00 AM EST 100 mg Oral aborted Constipation, unspecified constipation type Take ONE c apsule (100 mg total) by mouth 2 (two) times a day as needed for constipation [facility] Constipation, unspecified constipation t ype Ibuprofen 400 MG Oral Tablet ibuprofen 400 MG Oral tab let ibuprofen 400 MG Oral tablet 01/27/2020 12:00:00 AM EST 400 mg Oral active Elida l URI Take ONE tablet (400 mg total) by mouth every 6 (six) hours as needed for mild pain for up to 10 days [facility] Viral URI Multiple Vitamin (MULTI-VITAMIN) Oral tablet 65692-443-45 12/20/2019 12:00:00 AM EDT 1 {tbl} Oral active Alcohol dependence in re mission (HCC) Take ONE tablet by mouth daily [facility] Alcohol dependence in remission ([facility]) Folic Acid 1 MG Oral Tablet folic acid 1 MG Oral table t folic acid 1 MG Oral tablet 12/20/2019 12:00:00 AM EDT 1 mg Oral activ e Alcohol dependence in remission (HCC) Take ONE tablet (1 mg total) by mouth da citlaly [facility] Alcohol dependence in remission ([facility]) 100 mg 12/12/2019 12:00:00 AM EDT tablet 9 TAKE 1 TABLET BY MOUTH AT ONSET OF MIGRAINE MAY REPEAT IN 2 HOURS [FOR 5 MIGRAINES A MONTH] MAXIMUM DAILY DOSE = 2 TAKE 1 TABLET BY MOUTH AT ONSET OF MIGRA INE MAY REPEAT IN 2 HOURS [FOR 5 MIGRAINES A MONTH] MAXIMUM DAILY DOSE = 2 SOLD: 12/15/2019 [facility] 150 mg 12/12/2019 12:00:00 AM EDT capsule,extended releas e 24hr 30 TAKE ONE CAPSULE BY MOUTH EVERY DAY AT BEDTIME MAXIMUM DAILY DOSE = 1 TAKE ONE CAPSULE BY MOUTH EVERY DAY AT BEDTIME MAXIMUM DAILY DOSE = 1 SOLD: 12/15/2019 [facility] 100 mg 12/12/2019 12:00:00 AM EDT tablet 60 TAKE ONE TABLET BY MOUTH TWICE A DAY MAXIMUM DAILY DOSE = 2 TABLETS TAKE ONE TABLET BY MOUTH TWICE A DAY MAX IMUM DAILY DOSE = 2 TABLETS SOLD: 12/15/2019 [facility] 100 mg 12/12/2019 12:00:00 AM EDT tablet 9 TAKE 1 TABLET BY MOUTH AT ONSET OF MIGRAINE MAY REPEAT IN 2 HOURS [FOR 5 MIGRAINES A MONTH] MAXIMUM DAILY DOSE = 2 TAKE 1 TABLET BY MOUTH AT ONSET OF MIGRA INE MAY REPEAT IN 2 HOURS [FOR 5 MIGRAINES A MONTH] MAXIMUM DAILY DOSE = 2 SOLD: 02/01/2020 [facility] 200 mg 12/12/2019 12:00:00 AM EDT capsule,extended releas e 24hr 30 TAKE 1 CAPSULE BY MOUTH EVRY NIGHT AT BEDTIME MAXIMUM DAILY DOSE = 1 TAKE 1 CAPSULE BY MOUTH EVRY NIGHT AT BEDTIME MAXIMUM DAILY DOSE = 1 SOLD: 03/12/2020 [facility] 200 mg 12/12/2019 12:00:00 AM EDT capsule,extended releas e 24hr 30 TAKE 1 CAPSULE BY MOUTH EVRY NIGHT AT BEDTIME MAXIMUM DAILY DOSE = 1 TAKE 1 CAPSULE BY MOUTH EVRY NIGHT AT BEDTIME MAXIMUM DAILY DOSE = 1 SOLD: 02/01/2020 [facility] 200 mg 12/12/2019 12:00:00 AM EDT capsule,extended releas e 24hr 30 TAKE 1 CAPSULE BY MOUTH EVRY NIGHT AT BEDTIME MAXIMUM DAILY DOSE = 1 TAKE 1 CAPSULE BY MOUTH EVRY NIGHT AT BEDTIME MAXIMUM DAILY DOSE = 1 SOLD: 12/15/2019 [facility] 100 mg 12/12/2019 12:00:00 AM EDT tablet 9 TAKE 1 TABLET BY MOUTH AT ONSET OF MIGRAINE MAY REPEAT IN 2 HOURS [FOR 5 MIGRAINES A MONTH] MAXIMUM DAILY DOSE = 2 TAKE 1 TABLET BY MOUTH AT ONSET OF MIGRA INE MAY REPEAT IN 2 HOURS [FOR 5 MIGRAINES A MONTH] MAXIMUM DAILY DOSE = 2 SOLD: 03/12/2020 [facility] 15 mg 12/12/2019 12:00:00 AM EDT capsule,ER biphasic 50- 50 60 TAKE 1 CAPSULE BY MOUTH EVERY MORNING AND 1 CAPSULE AT NOON MAXIMUM DAILY DOSE = 2 CAPSULES TAKE 1 CAPSULE BY MOUTH EVERY MORNING AND 1 CAPSULE AT NOON MAXIMUM DAILY DOSE = 2 CAPSULES SOLD: 12/15/2019 [facility] 24 HR venlafaxine 150 MG Extended Release Oral Capsule Venla faxine HCL ER 12/12/2019 12:00:00 AM EDT ORAL active [facility] ([facility] ) 100 mg 10/10/2019 12:00:00 AM EDT tablet 60 TAKE ONE TABLET BY MOUTH TWICE A DAY MAXIMUM DAILY DOSE = 2 TABLETS TAKE ONE TABLET BY MOUTH TWICE A DAY MAX IMUM DAILY DOSE = 2 TABLETS SOLD: 11/02/2019 [facility] Fexofenadine hydrochloride 180 MG Oral Tablet Fexofena dine HCl 180 MG Oral Tab Fexofenadine HCl 180 MG Oral Tab 10/10/2019 12:00:00 AM EDT 180 mg Oral active Rash Take ONE tablet (180 mg total) b y mouth daily [facility] Rash 15 mg 10/09/2019 12:00:00 AM EDT capsule,ER biphasic 50- 50 60 TAKE 1 CAPSULE BY MOUTH EVERY MORNING AND 1 CAPSULE AT NOON MAXIMUM DAILY DOSE = 2 CAPSULES TAKE 1 CAPSULE BY MOUTH EVERY MORNING AND 1 CAPSULE AT NOON MAXIMUM DAILY DOSE = 2 CAPSULES SOLD: 10/10/2019 [facility] 1 ML Ketorolac Tromethamine 30 MG/ML [place] Ketorolac Tromethamine 30 MG/ML SOLN Ketorolac Tromethamine 30 MG/ML SOLN 09/11/2019 12:00:00 AM EDT 30 mg Intramuscular completed Sciatica of left side 30 mg, Intramuscular, Once, 1 dose, Anjelica 09/11/19 at 0000, Administered [facility] Sciatica of left side Medication administered onsite 15 mg 08/20/2019 12:00:00 AM EDT capsule,ER biphasic 50- 50 60 TAKE 1 CAPSULE BY MOUTH EVERY A.M.& 1 CAPSULE AT NOON MAX= 2CAPS/DAY TAKE 1 CAPSULE BY MOUTH EVERY A.M.& 1 CAPSULE AT NOON MAX= 2CAPS/DAY SOLD: 08/25/2019 [facility] Citalopram 20 MG Oral Tablet Citalopram Hydrobromide 2 0 MG Oral Tab Citalopram Hydrobromide 20 MG Oral Tab 08/12/2019 12:00:00 AM EDT 20 mg Oral active Mild major depression, single episode (HCC) Take ONE t ablet (20 mg total) by mouth daily [facility] Mild major depression, single episode (H CC) Take ONE tablet (20 mg total) by mouth d aily Multiple Vitamin (MULTI-VITAMIN) Oral tablet [id number] 07/31/2019 12:00:00 AM EDT 1 {tbl} Oral aborted Alcohol dependence in re mission (HCC) Take ONE tablet by mouth daily [facility] Alcohol dependence in remission (HCC) Take ONE tablet by mouth daily Naltrexone hydrochloride 50 MG Oral Tablet Naltrexone HCl 50 MG Oral Tab Naltrexone HCl 50 MG Oral Tab 07/31/2019 12:00:00 AM EDT active Alcohol dependence in remission (HCC) 1 tablet daily [facility] Alcohol dependence in remission (HCC) 1 tablet daily Nicotine 4 MG Chewing Gum Nicotine Polacrilex 4 MG Kira th/Throat Gum Nicotine Polacrilex 4 MG Mouth/Throat Gum 07/25/2019 12:00:00 AM EDT active CHEW 1 PIECE EVERY TWO HOURS NEEDED NEEDED FOR C IGARETTE CRAVINGS. [facility] CHEW 1 PIECE EVERY TWO HOURS NEEDED A S NEEDED FOR CIGARETTE CRAVINGS. topiramate 50 MG Oral Tablet Topiramate 50 MG Oral Tab Topiramate 50 MG Oral Tab 07/19/2019 12:00:00 AM EDT 1 {tbl} Oral active Take 1 tablet by mouth 2 (two) times a day [facility] Take 1 tablet by mouth 2 (two) times a d ay Mirtazapine 15 MG Oral Tablet Mirtazapine 15 MG Oral Tab 12:00:00 AM EDT 1 {tbl} Oral active Take 1 tablet by mouth nightly [facility] Take 1 tablet by mouth nightly ferrous sulfate 325 MG Oral Tablet ferrous sulfate 325 (65 FE) MG Oral tablet ferrous sulfate 325 (65 FE) MG Oral tablet 07/19/2019 12:00:00 AM EDT 1 {tbl} Oral active Take 1 tablet by kira th 2 (two) times a day [facility] Take 1 tablet by mouth 2 (two) times a d ay Folic Acid 1 MG Oral Tablet folic acid 1 MG Oral table t folic acid 1 MG Oral tablet 07/19/2019 12:00:00 AM EDT aborted TAKE 1 TABLET BY MOUTH ONCE A DAY [facility] TAKE 1 TABLET BY MOUTH ONCE A DAY 100 mg 07/09/2019 12:00:00 AM EDT tablet 60 TAKE 1 TABLET BY MOUTH TWICE A DAY MAX DAILY DOSE = 2 TABLETS TAKE 1 TABLET BY MOUTH TWICE A DAY MAX D AILY DOSE = 2 TABLETS SOLD: 07/17/2019 [facility] 100 mg 07/09/2019 12:00:00 AM EDT tablet 60 TAKE 1 TABLET BY MOUTH TWICE A DAY MAX DAILY DOSE = 2 TABLETS TAKE 1 TABLET BY MOUTH TWICE A DAY MAX D AILY DOSE = 2 TABLETS SOLD: 09/10/2019 [facility] 15 mg 07/08/2019 12:00:00 AM EDT capsule,ER biphasic 50- 50 60 TAKE 1 CAPSULE BY MOUTH EVERY MORNING AND 1 AT NOON MAXIMUM DAILY DOSE = 2 CAPSULES TAKE 1 CAPSULE BY MOUTH EVERY MORNING AND 1 AT NOON MAXIMUM DAILY DOSE = 2 CAPSULES SOLD: 07/09/2019 [facility] 200 mg 07/03/2019 12:00:00 AM EDT capsule,extended releas e 24hr 30 TAKE 1 CAPSULE BY MOUTH EVERY NIGHT AT BEDTIME MAXIMUM DAILY DOSE = 1 TAKE 1 CAPSULE BY MOUTH EVERY NIGHT AT BEDTIME MAXIMUM DAILY DOSE = 1 SOLD: 08/09/2019 [facility] 200 mg 07/03/2019 12:00:00 AM EDT capsule,extended releas e 24hr 30 TAKE 1 CAPSULE BY MOUTH EVERY NIGHT AT BEDTIME MAXIMUM DAILY DOSE = 1 TAKE 1 CAPSULE BY MOUTH EVERY NIGHT AT BEDTIME MAXIMUM DAILY DOSE = 1 SOLD: 07/05/2019 [facility] 200 mg 07/03/2019 12:00:00 AM EDT capsule,extended releas e 24hr 30 TAKE 1 CAPSULE BY MOUTH EVERY NIGHT AT BEDTIME MAXIMUM DAILY DOSE = 1 TAKE 1 CAPSULE BY MOUTH EVERY NIGHT AT BEDTIME MAXIMUM DAILY DOSE = 1 SOLD: 09/10/2019 [facility] 75 mg 07/03/2019 12:00:00 AM EDT capsule,extended releas e 24hr 30 TAKE ONE CAPSULE BY MOUTH AT BEDTIME. MAXIMUM DAILY DOSE = 1 TAKE ONE CAPSULE BY MOUTH AT BEDTIME. MAXIMUM DAILY DOSE = 1 SOLD: 07/05/2019 [facility] 24 HR venlafaxine 75 MG Extended Release Oral Capsule Venlaf axine HCL ER 07/02/2019 12:00:00 AM EDT ORAL completed [facility] ([facility]) Citalopram 20 MG Oral Tablet Citalopram Hydrobromide 2 0 MG Oral Tab Citalopram Hydrobromide 20 MG Oral Tab 06/30/2019 12:00:00 AM EDT 1 {tbl} Oral completed Take 1 tablet by mouth daily [facility] Take 1 tablet by mouth daily 5 % 06/10/2019 12:00:00 AM EDT ointment 15 APPLY SMALL AMOUNT ON AFFECTED SKIN AREA THREE TIMES A DAY FOR 1 WEEK APPLY SMALL AMOUNT ON AFFECTED SKIN AREA THREE TIMES A DAY FOR 1 WEEK SOLD: 08/09/2019 [facility] 5 % 06/10/2019 12:00:00 AM EDT ointment 15 APPLY SMALL AMOUNT ON AFFECTED SKIN AREA THREE TIMES A DAY FOR 1 WEEK APPLY SMALL AMOUNT ON AFFECTED SKIN AREA THREE TIMES A DAY FOR 1 WEEK SOLD: 06/10/2019 [facility] 500 mg 05/02/2019 12:00:00 AM EST tablet 30 TAKE ONE TABLET BY MOUTH EVERY DAY MAXIMUM DAILY DOSE = 1 TAKE ONE TABLET BY MOUTH EVERY DAY MAXIM UM DAILY DOSE = 1 SOLD: 06/10/2019 [facility] Clarithromycin 500 MG Oral Tablet Clarithromycin 05/02/2019 12:00:00 AM EST ORAL completed MEDENT ([facility]) 500 mg 05/02/2019 12:00:00 AM EST tablet 30 TAKE ONE TABLET BY MOUTH EVERY DAY MAXIMUM DAILY DOSE = 1 TAKE ONE TABLET BY MOUTH EVERY DAY MAXIM UM DAILY DOSE = 1 SOLD: 05/02/2019 [facility] 30 mg 03/24/2019 12:00:00 AM EST capsule,ER biphasic 50- 50 60 TAKE ONE CAPSULE BY MOUTH TWICE A DAY MAXIMUM DAILY DOSE = 2 CAPSULES TAKE ONE CAPSULE BY MOUTH TWICE A DAY MAXIMUM DAILY DOSE = 2 CAPSULES SOLD: 04/16/2019 [facility] 100 mg 03/04/2019 12:00:00 AM EST tablet 60 TAKE ONE TABLET BY MOUTH TWICE A DAY MAXIMUM DAILY DOSE = 2 TABLETS TAKE ONE TABLET BY MOUTH TWICE A DAY MAX IMUM DAILY DOSE = 2 TABLETS SOLD: 03/12/2019 [facility] 100 mg 03/04/2019 12:00:00 AM EST tablet 60 TAKE ONE TABLET BY MOUTH TWICE A DAY MAXIMUM DAILY DOSE = 2 TABLETS TAKE ONE TABLET BY MOUTH TWICE A DAY MAX IMUM DAILY DOSE = 2 TABLETS SOLD: 06/10/2019 [facility] 100 mg 03/04/2019 12:00:00 AM EST tablet 60 TAKE ONE TABLET BY MOUTH TWICE A DAY MAXIMUM DAILY DOSE = 2 TABLETS TAKE ONE TABLET BY MOUTH TWICE A DAY MAX IMUM DAILY DOSE = 2 TABLETS SOLD: 05/02/2019 [facility] 30 mg 02/24/2019 12:00:00 AM EST capsule,ER biphasic 50- 50 60 TAKE ONE CAPSULE BY MOUTH TWICE A DAY MAXIMUM DAILY DOSE = 2 CAPSULES TAKE ONE CAPSULE BY MOUTH TWICE A DAY MAXIMUM DAILY DOSE = 2 CAPSULES SOLD: 02/24/2019 [facility] 37.5 mg 02/12/2019 12:00:00 AM EST capsule,extended releas e 24hr 30 TAKE ONE CAPSULE BY MOUTH EVERY MORNING TAKE ONE CAPSULE BY MOUTH EVERY MORNING SOLD: 03/12/2019 [facility] 24 HR dexmethylphenidate hydrochloride 3 0 MG Extended Release Oral Capsule [Focalin] Focalin XR 02/12/2019 12:00:00 AM EST ORAL co mpleted MEDENT ([facility]) 24 HR venlafaxine 37.5 MG Extended Release Oral Capsule Venl afaxine HCL ER 02/12/2019 12:00:00 AM EST ORAL completed MEDENT ([facility]) 37.5 mg 02/12/2019 12:00:00 AM EST capsule,extended releas e 24hr 30 TAKE ONE CAPSULE BY MOUTH EVERY MORNING TAKE ONE CAPSULE BY MOUTH EVERY MORNING SOLD: 04/16/2019 [facility] 0.05 % 02/12/2019 12:00:00 AM EST drops 5 INSTILL 1 DROP IN EACH EYE TWO TIMES A DAY INSTILL 1 DROP IN EACH EYE TWO TIMES A DAY SOLD: 02/12/2019 [facility] 37.5 mg 02/12/2019 12:00:00 AM EST capsule,extended releas e 24hr 30 TAKE ONE CAPSULE BY MOUTH EVERY MORNING TAKE ONE CAPSULE BY MOUTH EVERY MORNING SOLD: 02/12/2019 [facility] 15 mg 01/22/2019 12:00:00 AM EST capsule,ER biphasic 50- 50 90 TAKE 2 CAPSULES BY MOUTH EVERY MORNING AND 1 CAPSULE AT NOON MAXIMUM DAILY DOSE = 3 CAPSULES TAKE 2 CAPSULES BY MOUTH EVERY MORNING A ND 1 CAPSULE AT NOON MAXIMUM DAILY DOSE = 3 CAPSULES SOLD: 01/22/2019 [facility] 100 mg 01/22/2019 12:00:00 AM EST tablet 60 TAKE ONE TABLET BY MOUTH TWICE A DAY MAXIMUM DAILY DOSE = 2 TABLETS TAKE ONE TABLET BY MOUTH TWICE A DAY MAX IMUM DAILY DOSE = 2 TABLETS SOLD: 02/04/2019 [facility] 100 mg 10/03/2018 12:00:00 AM EDT tablet 9 1 TABLET BY MOUTH ONSET OF MIGRAINE MAY REPEAT IN 2HRS (5MIGRAINES A MONTH) MAX 2TABS/DAY 1 TABLET BY MOUTH ONSET OF MIGRAINE MAY REPEAT IN 2HRS (5MIGRAINES A MONTH) MAX 2TABS/DAY SOLD: 06/10/2019 [facility] 5 % 02/13/2018 12:00:00 AM EST ointment 15 APPLY SMALL AMOUNT TO AFFECTED AREA(S) THREE TIMES A DAY FOR 7 DAYS APPLY SMALL AMOUNT TO AFFECTED AREA(S) THREE TIMES A DAY FOR 7 DAYS SOLD: 02/04/2019 [facility] 1 ML Ketorolac Tromethamine 30 MG/ML Inj ection Ketorolac Tromethamine 30 MG/ML Intramuscular Solution Ketorolac Tromethamine 30 MG/ML Intramuscular Solution 05/05/2015 12:00:00 AM EST 30 mg Intramuscular completed Right-sided low back pain with right-sided sciatica Inject 1 mL (30 mg total) into the shoulder, thigh or buttocks now for 1 dose [facility] Right-sided low back pain with right-soledad ed sciatica Inject 1 mL (30 mg total) into the shoul sherly, thigh or buttocks now for 1 dose Insurance Providers Payer name Policy type / Coverage type Policy ID Covered democrat ID Covered democrat's relationship to danielson Policy Danielson Plan Information JIM CARE [id number] Self [id number] JIM CARE [id number] Self [id number] JIM CARE [id number] Self [id number] SLIDING FEE [id number] Self [id number] SELF PAY/NO SLIDE 99 Self 99 [place] [id number] Self [id number] SLIDING FEE [id number] Self [id number] [employer]IGROUP [id number] Self [id number] [employer]BC[employer] HE[employer] [id number] Self [id number] [place] [id number] Self [id number] JIM CARE HARP [id number] JIM CARE Medicaid Mgd Care [id number] MEDICAID [place] Medicaid 125 [id number] JIM CARE [id number] Self [id number] [facility] [id number] Se lf [id number] [facility] [id number] SP [id number] [facility] U [id number] Se lf [id number] [facility] U Self SLIDING FEE Uninsured [id number] SLIDING FEE [id number] Self [id number] [facility] [id number] SP [id number] ANSI-Commercial [id number] ANSI-[employer] [id number] [facility] [id number] SP [id number] ANSI-Commercial [id number] ANSI-Commercial [id number] ANSI-Commercial [id number] ANSI-Commercial [id number] ANSI-Commercial [id number] ANSI-Commercial [id number] ANSI-Commercial [id number] ANSI-Commercial [id number] [facility] AT [facility] Organization ([facility]) [id number] [facility] Dependent [id number] ANSI-Commercial [id number] ANSI-Commercial [id number] ANSI-Commercial [id number] ANSI-Commercial [id number] ANSI-Commercial [id number] ANSI-Commercial [id number] ANSI-Commercial [id number] [facility] [id number] SP [id number] [facility] AT [facility] Health Maintenance Organization (HMO) [id number] Family Dependent [id number] [facility] Commercial [id number] Self [id number] [facility] Commercial [id number] Self [id number] [facility] O [id number] S [id number] [facility] [id number]/NOT FOR TODAY SP [id number]/NOT FOR TODAY SELF PAY UNAVAILABLE SP UNAVAILA [employer] [id number] SP [id number] [place] [employer] [place] [employer] [id number] SP [id number] [place] [employer] [id number] SP [id number] Problems, Conditions, and Diagnoses Code Display Name Description Problem Type Effective Dates Data Source(s) Circadian rhythm sleep disorder, 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, delayed sleep phase type Problem 07/02/2019 12:00:00 AM EDT LUCINDA ([facility] ) Enrollment Enrollment Diagnosis 03/24/2020 03:40:07 PM [facility] K59.00 Constipation, unspecified Constipation, unspecified Di agnosis 02/24/2020 10:04:10 AM EST [facility] Missed Appointment Missed Appointment Diagnosis 0 11:13:25 AM EST [facility] J06.9 Acute upper respiratory infection, unspe cified Acute upper respiratory infection, unspecified Diagnosis 01/27/2020 02:33:55 PM EST [facility] Z23 Encounter for immunization Encounter for immunization Diagnosis 01/27/2020 02:33:55 PM EST [facility] D72.829 Elevated white blood cell count, unspeci fied Elevated white blood cell count, unspecified Diagnosis 01/27/2020 02:33:55 PM EST [facility] Follow-up for: Follow-up for: Diagnosis 01/27/2020 02:33: 55 PM EST [facility] Outreach Outreach Diagnosis 01/01/2020 10:46:43 AM LEONA [facility] F10.21 Alcohol dependence, in remission Alcohol depende nce, in remission Diagnosis 12/20/2019 09:41:40 AM EDT [facility] alth Z01.20 Encounter for dental examination and alejo aning without abnormal findings Encounter for dental examination and cleaning without abnormal findings Diagnosis 11/24/2019 03:46:20 PM EDT [facility] alth Z00.00 Encounter for general adult medical examination without abnormal findings Encounter for general adult medical examination withou t abnormal findings Diagnosis 11/24/2019 01:03:21 PM EDT [facility] alth 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, in remission Other psychoactive substance dependence, in remission Diagnosis 11/24/2019 01:03:21 PM ED T [facility] M54.9 Dorsalgia, unspecified Dorsalgia, unspecified Diagnosi s 11/24/2019 01:03:21 PM EDT [facility] R21 Rash and other nonspecific skin eruption Rash and other nonspecific skin eruption Diagnosis 11/24/2019 01:03:21 PM EDT [facility] Z80.3 Family history of malignant neoplasm of breast Family history of malignant neoplasm of breast Diagnosis 11/24/2019 01:03:21 PM EDT [facility] Z71.7 Human immunodeficiency virus [HIV] couns eling Human immunodeficiency virus (HIV) counseling Diagnosis 11/24/2019 01:03:21 PM EDT [facility] Z11.3 Encounter for screening for infections with a predominantly sexual mode of transmission Encounter for screening for infections w ith a predominantly sexual mode of transmission Diagnosis 11/24/2019 01:03:21 PM EDT [facility] Z12.4 Encounter for screening for malignant ne oplasm of cervix Encounter for screening for malignant neoplasm of cervix Diagnosis 11/24/2019 01:03: 21 PM EDT [facility] Z53.20 Procedure and treatment not carried out because of patient's decision for unspecified reasons Procedure and treatment not carried out because of patient s decision for unspecified reasons Diagnosis 10/28/2019 09:35:28 AM ED T [facility] Z12.31 Encounter for screening mammogram for ma lignant neoplasm of breast Encounter for screening mammogram for malignant neoplasm of breast Diagnosis 10/03/2019 12:37:43 PM EDT [facility] T78.40XA Allergy, unspecified, initial encounter Allergy, unspecified, initial encounter Diagnosis 10/03/2019 12:37:43 PM EDT [facility] Virtual Visit (Telephone Only) Virtual Visit (Telephon e Only) Diagnosis 10/03/2019 12:37:43 PM EDT [facility] Z53.29 Procedure and treatment not carried out because of patient's decision for other reasons Procedure and treatment not carried out because of patient s decision for other reasons Diagnosis 09/29/2019 11:28:56 AM EDT [facility] M54.32 Sciatica, left side Sciatica, left side Diagnosis 0 09/11/2019 12:25:50 PM EDT [facility] F32.0 Major depressive disorder, single episod e, mild Major depressive disorder, single episode, mild Diagnosis 08/12/2019 09:13:34 AM EDT [facility] R42 Dizziness and giddiness Dizziness and giddiness Diagno sis 08/12/2019 09:13:34 AM EDT [facility] Lab Results Lab Results Diagnosis 08/12/2019 09:13:34 AM EDT [facility] N91.2 Amenorrhea, unspecified Amenorrhea, unspecified Diagno sis 07/31/2019 11:12:25 AM EDT [facility] Fatigue Fatigue Diagnosis 07/31/2019 11:12:25 AM ED T [facility] Missed Period Missed Period Diagnosis 07/31/2019 11:12:25 AM EDT [facility] Other Other Diagnosis 07/31/2019 11:12:25 AM ED T [facility] Surgeries/Procedures Procedure Description Date Indications Data Source(s) FLUCELVAX, INFLUENZA, CCIIV4, PSRV FREE, 4YRS+, 0.5 ML , PREFILLED SYRINGE FLUCELVAX, INFLUENZA, CCIIV4, PSRV FREE, 4YRS+, 0.5 ML, PREFILLED SYRINGE Routine 01/27/2020 3:54 PM EST Need for prophylactic vaccination and inoculation against influenza 01/27/2020 03:54:58 PM EST Need for prophylactic vaccination and in oculation against influenza [facility] Need for prophylactic vaccination and in oculation against influenza [facility] INNERVATED FACIAL NRV 12/15/2019 12:00:00 AM EDT MEDDANIA ([facility] ) ORAL HYGIENE INSTRUCTIONS ORAL HYGIENE INSTRUCTIONS Routine 11/24/2019 3:30 PM EDT Dental examination Encounter for dental examination and cleaning without abnormal findings 11/24/2019 03:30:00 PM EDT Encounter for dental examination and alejo aning without abnormal findingsDental examination [facility] Encounter for dental examination and alejo aning without abnormal findings Dental examination DENTAL PROPHYLAXIS ADULT DENTAL PROPHYLAXIS ADULT Routine 11/24/2019 3:30 PM EDT Dental examination Encounter for dental examination and cleaning without abnormal findings 11/24/2019 03:30:00 PM EDT Encounter for dental examination and alejo aning without abnormal findingsDental examination [facility] Encounter for dental examination and alejo aning without abnormal findings Dental examination BITEWINGS - FOUR RADIOGRAPHC IMAGES BITEWINGS - FOUR RADIOG RAPHC IMAGES Routine 11/24/2019 3:30 PM EDT Dental examination Encounter for dental examination and cleaning without abnormal findings 11/24/2019 03:30:00 PM EDT Encounter for dental examination and alejo aning without abnormal findingsDental examination [facility] Encounter for dental examination and alejo aning without abnormal findings Dental examination IO-PERIAPICAL EA ADD RADIOGRPH IMAG IO-PERIAPICAL EA ADD RA DIOGRPH IMAG Routine 11/24/2019 3:30 PM EDT Dental examination Encounter for dental examination and cleaning without abnormal findings 11/24/2019 03:30:00 PM EDT Encounter for dental examination and alejo aning without abnormal findingsDental examination [facility] Encounter for dental examination and alejo aning without abnormal findings Dental examination IO-PERIAPICAL 1ST RADIOGRAPHC IMAGE IO-PERIAPICAL 1ST RADIO GRAPHC IMAGE Routine 11/24/2019 3:30 PM EDT Dental examination Encounter for dental examination and cleaning without abnormal findings 11/24/2019 03:30:00 PM EDT Encounter for dental examination and alejo aning without abnormal findingsDental examination [facility] Encounter for dental examination and alejo aning without abnormal findings Dental examination COMP ORAL EVALUATION - NEW/EST PT COMP ORAL EVALUATION - NEW/ES T PT Routine 11/24/2019 3:30 PM EDT Dental examination Encounter for dental examination and cleaning without abnormal findings 11/24/2019 03:30:00 PM EDT Encounter for dental examination and alejo aning without abnormal findingsDental examination [facility] Encounter for dental examination and alejo aning without abnormal findings Dental examination HIV 1 & 2 <td><content ID="[id number] name">HIV 1 & 2</content></td><td>Routine</td><td>11/24/2019 1:54 PM EDT</td><td><paragraph>Encounter for human immunodeficiency virus (HIV) counseling</paragraph><paragraph>Human immunodeficiency virus (HIV) counseling</paragraph></td><td><paragraph styleCode="header">Results for this procedure are in the <content styleCode="[id number]">results section</content>.</paragraph></td> 11/24/2019 01:54:00 PM EDT Human immunodeficiency virus (HIV) counselingEncounter for human immunodeficiency virus (HIV) counseling [facility] Human immunodeficiency virus (HIV) couns siva Encounter for human immunodeficiency vir us (HIV) counseling CONSULT TO DERMATOLOGY CONSULT TO DERMATOLOGY 10/09/2019 02:21:16 P M EDT [facility] TDAP VACCINE 7/> YR IM TDAP VACCINE SQ IMM CLINIC Routine 09/11/2019 12:59 PM EDT Need for prophylactic vaccination with combined iswcctjpna-vjysdhf-nzizbihkg (DTP) vaccine 09/11/2019 12:59:17 PM EDT Need for prop hylactic vaccination with combined kuyzbepazd-wvxkyjx-fvyyenlvd (DTP) vaccine [facility] Need for prophylactic vaccination with c ombined nbrrsaddpz-exnjpbr-eyomcjint (DTP) vaccine IMMUNIZ ADMIN; 1 VACCINE (1/COMBO VACC/* IMMUNIZ ADMI N; 1 VACCINE (1/COMBO VACC/* 09/11/2019 12:00 AM EDT Encounter for immunization 09/11/2019 12:00:[address] for immunization [facility] Encounter for immunization THERAPEUTIC PROPHYLACTIC/DX INJECTION SUBQ/IM THERAPE UTIC PROPHYLACTIC/DX INJECTION SUBQ/IM 09/11/2019 12:00 AM EDT Sciatica, left side 09/11/2019 12:00:00 AM EDT Sciatica, left si de [facility] Sciatica, left side [facility] INNERVATED FACIAL NRV 08/18/2019 12:00:00 AM EDT MEDENT ([facility]) (URINE) IN HOUSE (URINE) IN HOUSE Routine 07/31/2019 1:26 PM EDT Absence of menstruation Amenorrhea, unspecified 07/31/2019 01:26:00 PM EDT Amenorrhe a, unspecifiedAbsence of menstruation [facility] Amenorrhea, unspecified Absence of menstruation ECG-ROUTINE W/12 LEADS; W/INTERPT & REP* <td><content ID="[id number]">ECG- ROUTINE W/12 LEADS; W/INTERPT & REP*</content></td><td>Routine</td><td>07/31/2019 1:16 PM EDT</td><td><paragraph>Dizziness</paragraph><paragraph>Dizziness and giddiness</paragraph></td><td><paragraph styleCode="header">Results for this procedure are in the <content styleCode="[id number]">results section</content>.</paragraph></td> 07/31/2019 01:16:00 PM EDT Dizziness and giddinessDizziness [facility] Dizziness and giddiness Dizziness COMP METABOLIC PANEL COMP METABOLIC PANEL Routine 07/31/2019 12:41 PM EDT Dizziness 07/31/2019 12:41:00 PM EDT [facility] TSH, HIGH SENSITIVITY (SERUM) TSH, HIGH SENSITIVITY (SERUM) Rou gloria 07/31/2019 12:41 PM EDT Dizziness 07/31/2019 12:41:00 PM EDT Dizziness [facility] Dizziness CBC WITH DIFFERENTIAL AND PLATELETS CBC WITH DIFFERENTIAL A ND PLATELETS Routine 07/31/2019 12:41 PM EDT Dizziness 07/31/2019 12:41:00 PM EDT Dizziness [facility] Dizziness [facility] INNERVATED FACIAL NRV 05/02/2019 12:00:00 AM EST MEDENT ([facility]) [facility] INNERVATED FACIAL NRV 01/30/2019 12:00:00 AM EST MEDENT ([facility]) Results ID Date Data Source [id number] 01/27/2020 04:10:57 PM EST [facility] Reason for Visit and Comments: Follow -up for: [92]Vitals (Last Filed):BP 97/62 (Orthostatic Site : Arm - Left, Orthostatic Posi- tion : Sitting, Orthostatic Cuff Size : Large Adult) Pu- lse 67 Temp 96.8 F (36 C) (Temporal) Ht 5 6" (1.67- 6 m) Wt 176 lb (79.8 kg) BMI 28.41 kg/v1LjbwkdMaddie Delacruz MA 01/27/2020 4:10 PM SignedI have identified this patient to be Shanda Coughlin, - 1975.Chief ComplaintPatient presents with Follow-up for:BP 97/62 (Orthostatic Site : Arm - Left, Orthostatic Position : Sitting,Orthostatic Cuff Size : Large Adult) | Pulse 67 | Temp 96.8 F (36 C)(Temporal) | Ht 5 6" (1.676 m) | Wt 176 lb (79.8 kg) | BMI 28.41 kg/mPatient states she has head & joints pain.Karla Strickland DO 01/27/2020 4:10 PM SignedSUBJECTIVE:HPI: I have identified this patient to be Shanda Coughlin, -1975 w/a PMHx of drug abuse in remission, depression who presents forChief ComplaintPatient presents with Follow-up for:#for the last two days has been having joint aches all over, feels like she ishaving blurry vision, (+) headaches, denies fever/cough/(+) congestion at nightonly-denies loss of taste or smell, denies SOB, CP-denies sore throat#rash - comes and goes - was seen by allergy and told to increase ghada toBID from qdaily-was given pramoxine lotion 1%Denies sick contacts#weight gain - patient is taking mirtazapinePatient has now been sober 9 months (drug/alcohol)#cbc done by cad draftsman showed WBC of 4.3 and asked patient to be evaluated -this is within our reference rangeOBJECTIVE:PE:BP 97/62 (Orthostatic Site : Arm - Left, Orthostatic Position : Sitting,Orthostatic Cuff Size : Large Adult) | Pulse 67 | Temp 96.8 F (36 C)(Temporal) | Ht 5 6" (1.676 m) | Wt 176 lb (79.8 kg) | BMI 28.41 kg/mThe patient appears well, in no apparent distress. Alert and oriented timesthree, pleasant and cooperative. Vital signs are as noted by the nurse.Gen: no apparent distress; cooperative, pleasantEyes: normal conjuctiva bilaterally; pupils equal, round, reactive to light;extraocular muscles intactEars: external ear canals normal bilaterally; no erythema evident in canalsbilaterally; tympanic membrane visualized bilaterally and shiny in appearanceNares: no evidence of nasal drainage bilaterally; turbinates normal without anyerythemaOropharynx: no evidence of erythema or exudatesNeck: supple, no thyromegaly, no adenopathyLungs: clear to auscultation bilaterally; no wheezing, rhonchi or ralesdetected on exam; symmetric air movement bilaterallyHeart: normal s1,s2; normal rate, regular rhythm; no murmurs, rubs, or gallopsAbdomen: normoactive bowel sounds diffusely; soft, nondistended, nontender topalpationProcedures/Tests:Results for orders placed or performed in visit on 11/24/19INPREP AND HPV W GC/CHLAMYDIAResult Value Ref Range MEAT TEAM LEAD REPORT NILM HPV HR NON 16/18 Not Detected HPV GENOTYPE, 18 Not Detected HPV GENOTYPE, 16 Not Detected CHLAMYDIA TRACHOMATIS Not Detected NEISSERIA GONORRHOEAE NUCLEIC* Not DetectedHIV 1 & 2Result Value Ref Range HIV I & II - NON REACTIVE non-reactive HIV KIT LOT # [id number] HIV KIT EXP DATE 2020-06-18 INTERNAL CONTROL VALID- HIV 1 & 2 validASSESSMENT/PLAN:After a discussion of the available treatment options (including risks,benefits and alternatives), and using a shared-decision making model asapplicable, the following plan was reached in collaboration with the patient(and/or his/her guardian as indicated):1. Need for prophylactic vaccination and inoculation against influenza- FLUCELVAX, INFLUENZA, CCIIV4, PSRV FREE, 4YRS+, 0.5 ML, PREFILLED SYRINGE;Future- FLUCELVAX, INFLUENZA, CCIIV4, PSRV FREE, 4YRS+, 0.5 ML, PREFILLED SYRINGE2. Viral URIMuscle aches, congestion, headaches, reassurance provided. Return precautionsdiscussed. Given COVID pandemic recommended isolation- ibuprofen 400 MG Oral tablet; Take ONE tablet (400 mg total) by mouth every 6(six) hours as needed for mild pain for up to 10 days Dispense: 30 tablet;Refill: 03. Constipation, unspecified constipation typeDiscussed increased water intake and fiberous foods- docusate sodium 100 MG Oral capsule; Take ONE capsule (100 mg total) by mouth2 (two) times a day as needed for constipation Dispense: 60 capsule; Refill: 24. ;eukocytosisreviewed lab work - wnl for our reference range. Normal CBC [facility]-patient reassurance provided.Future AppointmentsDate Time Provider Department Pnvjsb1502/09/2020 11:00 AM Ladan Feránndez LMSW [facility]ENTERMarichuy Estrada Svetlana, RN 01/27/2020 4:10 PM SignedI have identified this patient to be Shanda CoughlinSARAH -1975.Chief ComplaintPatient presents with Follow-up for:No Known AllergiesFlu vaccine/s administered as per provider s order. See vaccine imm/inj section.Patient tolerated vaccine(s) well. No adverse reactions were noted. Patientdeparted with no apparent distress.Appearance: alert, well appearing, and in no distress.Patient Communication and Education AssessmentLearner: PatientLearning Needs reviewed: Immunizations: YesBarriers: NoneTeaching Methods: HandoutVerbalized Understanding: Communicates/understandsFollow up plan: RTC Torie Victoria Diagnosis:D72.829 Leukocytosis, unspecified type Other Diagnoses:Z23 Need for prophylactic vaccination and inoculation against influenza J06.9 Viral URI K59.00 Constipation, unspecified constipation type D72.829 Elevated white blood cell count, unspecified(Active) Comment:Billing Diagnosis J06.9 Acute upper respiratory infection, unspecified(Active) Comment:Billing Diagnosis K59.00 Constipation, unspecified (Active) Comment:Billing Diagnosis Z23 Encounter for immunization (Active) Comment:Billing DiagnosisPrescriptions as of 01/27/2020 Citalopram Hydrobromide 20 MG Oral Tab Take ONE tablet (20 mg total) by mouth daily docusate sodium 100 MG Oral capsule Take ONE capsule (100 mg total) by mouth 2 (two) times a day as needed for constipation ferrous sulfate 325 (65 FE) MG Oral tablet Take 1 tablet by mouth 2 (two) times a day Fexofenadine HCl 180 MG Oral Tab Take ONE tablet (180 mg total) by mouth daily folic acid 1 MG Oral tablet Take ONE tablet (1 mg total) by mouth daily ibuprofen 400 MG Oral tablet Take ONE tablet (400 mg total) by mouth every 6 (six) hours as needed for mild pain for up to 10 days Mirtazapine 15 MG Oral Tab Take 1 tablet by mouth nightly Multiple Vitamin (MULTI-VITAMIN) Oral tablet Take ONE tablet by mouth daily Naltrexone HCl 50 MG Oral Tab 1 tablet daily Nicotine Polacrilex 4 MG Mouth/Throat Gum CHEW 1 PIECE EVERY TWO HOURS NEEDED NEEDED FOR CIGARETTE CRAVINGS. Topiramate 50 MG Oral Tab Take 1 tablet by mouth 2 (two) times a dayAllergies As of Date: 01/27/2020(No Known Allergies)Date Reviewed: 01/27/2020Reviewed by: Maddie Delacruz MA - ReviewedLevel of Service:73235 OFFIC/OUTPT VISIT E&M EST LOW- MOD SEVER* Historical Information Past Medical and Surgical HistoryMedical And Surgical History Item DatePsychosocial circumstance 03/27/2011Genital wartsSickle cell trait (HCC)HX SECTION 1997Family History Problem Relation Age of Onset Coronary artery disease Maternal Grandmother 50Family Status - Relation Status Age at Mother Alive Notes: htn, htn, glaucoma, gastritits Father 52 Notes: hiv Sister Alive Notes: alive and well Sister Alive Notes: alive and well Brother Alive Notes: htn Brother Alive Notes: alive and well Brother Alive Notes: alive and well Son Alive Notes: alive and well Maternal GrandmotherSocial History Marital Status: Spouse: Years of Education: # children:Social History Narrative 10/23/2013 Born in [place], [place], Highest level of school Senior in college at [employer] working toward a bachelors, Lives with Son and + 3 cats, Single/: singles, , Work: student Transfusions none, Tattoos yes Professional done yes, Last sexually active currently, History of std Chlamydia, hpv ,Social History Topics Tobacco Use: Quit Years: 2 Comment: quit 08/2013 Alcohol Use: Yes 9.5 oz/week 19 drinks per week Comment: socially, not to intoxation Drug Use: No Comment: mj as a teen Sexually Active: Yes Partners with: Male Comment: Not currently with , "foreplay" with boyfriendImmunizations Administered Influenza, Injectable,(cciiv4), Qu* 01/27/2020 Tdap 09/11/2019 Tuberculin Test 03/27/2011 Name Value Range Interpretation Code Description Data Eliz rce(s) Supporting Document(s) ID Date Data Source [id number] 12/25/2019 04:17:58 PM EDT [facility] Name Value Range Interpretation Code Description Data Eliz rce(s) Supporting Document(s) Progress Note [facility] [id number] [facility] [file] [id number] ID Date Data Source [id number] 11/24/2019 04:36:40 PM EDT [facility] Reason for Visit and Comments: Mireille ghosh [[id number]]Emy Alicea DDS (R) 11/24/2019 4:36 PM SignedDental procedures in this visit D0150 - COMP ORAL EVALUATION - NEW/EST PT (Completed) Service provider: Emy Alicea DDS (R) Billing provider: Tyrone Zelaya DDS D1110 - DENTAL PROPHYLAXIS ADULT (Completed) Service provider: Emy Alicea DDS (R) Billing provider: Tyrone Zelaya DDS D1330 - ORAL HYGIENE INSTRUCTIONS (Completed) Service provider: Emy Alicea DDS (R) Billing provider: Tyrone Zelaya DDS D0230 - IO-PERIAPICAL EA ADD RADIOGRPH IMAG (Completed) Service provider: Emy Alicea DDS (R) Billing provider: Tyrone Zelaya DDS D0274 - BITEWINGS - FOUR RADIOGRAPHC IMAGES (Completed) Service provider: Emy Alicea DDS (R) Billing provider: Tyrone Zelaya DDS D0220 - IO-PERIAPICAL 1ST RADIOGRAPHC IMAGE (Completed) Service provider: Emy Alicea DDS (R) Billing provider: Tyrone Zelaya DDSSubjective CC: "I am here for an exam. My wisdom teeth are coming in and theyhurt and my gums bleed a lot."I have identified this patient to be Shanda Coughlin, SARAH -1975.Chief ComplaintPatient presents with CleaningHPIThe following portions of the patient s chart were reviewed in this encounterand updated as appropriate: Tobacco | Allergies | Meds | Med Hx | Surg Hx | FamHx | Soc Hx .ObjectiveDental Soft Tissue ExamEOE: symmetric, no LAD, no trismusIOE: buccal mucosa, tongue, lips within normal limits. Large mandibular toripresentRadiographic Interpretation/Hard Tissue Exam:Associated radiographs for today s visit were reviewed and findings werediscussed with the patient.Notable findings: Vertical bone defect between #2 and #3Refer to tooth chart for additional findings.Perio: Perio diagnosis: II - Chronic periodontitis localized, severe Gingiva isedematous with significant inflammation. Large probing depths found with grade1 mobility on #3 Perio treatment recommendations: Patient to be referred for a perio consult. Recommended Recare Interval: Every 6 months.TMJ EvaluationWithin Normal LimitsEmy Alicea DDS discussed findings associated with the patient speriodontal and caries status.Assessment & PlanNo restorative needs.Patient referred to policewoman due to extent of probing depths.Patient referred to oral surgery for extraction of #1, 16, 17, 32Patient to return for occlusal guard due to bruxismNext Visit: Occlusal guardSanikko Alicea DDS [id number] Diagnosis:Z01.20 Dental examinationPrescriptions as of 11/24/2019 Citalopram Hydrobromide 20 MG Oral Tab Take ONE tablet (20 mg total) by mouth daily ferrous sulfate 325 (65 FE) MG Oral tablet Take 1 tablet by mouth 2 (two) times a day Fexofenadine HCl 180 MG Oral Tab Take ONE tablet (180 mg total) by mouth daily folic acid 1 MG Oral tablet TAKE 1 TABLET BY MOUTH ONCE A DAY Mirtazapine 15 MG Oral Tab Take 1 tablet by mouth nightly Multiple Vitamin (MULTI-VITAMIN) Oral tablet () Take ONE tablet by mouth daily Naltrexone HCl 50 MG Oral Tab 1 tablet daily Nicotine Polacrilex 4 MG Mouth/Throat Gum CHEW 1 PIECE EVERY TWO HOURS NEEDED NEEDED FOR CIGARETTE CRAVINGS. Topiramate 50 MG Oral Tab Take 1 tablet by mouth 2 (two) times a da yFacility-Administered Medications as of 11/24/2019 Ketorolac Tromethamine 30 MG/ML SOLN (Completed)Allergies As of Date: 11/24/2019(No Known Allergies)Date Reviewed: 11/24/2019Reviewed by: Emy Alicea DDS (R) - Reviewed Historical Information Past Medical and Surgical HistoryMedical And Surgical History Item DatePsychosocial circumstance 03/27/2011Genital wartsSickle cell trait (HCC)HX SECTION 1997Family History Problem Relation Age of Onset Coronary artery disease Maternal Grandmother 50Family Status - Relation Status Age at Mother Alive Notes: htn, htn, glaucoma, gastritits Father 52 Notes: hiv Sister Alive Notes: alive and well Sister Alive Notes: alive and well Brother Alive Notes: htn Brother Alive Notes: alive and well Brother Alive Notes: alive and well Son Alive Notes: alive and well Maternal GrandmotherSocial History Marital Status: Spouse: Years of Education: # children:Social History Narrative 10/23/2013 Born in [place], [place], Highest level of school Senior in college at [employer] working toward a [employer], Lives with Son and + 3 cats, Single/: singles, , Work: student Transfusions none, Tattoos yes Professional done yes, Last sexually active currently, History of std Chlam ydia, hpv ,Social History Topics Tobacco Use: Quit Years: 2 Comment: quit 08/2013 Alcohol Use: Yes 9.5 oz/week 19 drinks per week Comment: socially, not to intoxation Drug Use: No Comment: mj as a teen Sexually Active: Yes Partners with: Male Comment: Not currently with , "foreplay" with boyfriendImmunizations Administered Tdap 09/11/2019 Tuberculin Test 03/27/2011 Name Value Range Interpretation Code Description Data Eliz rce(s) Supporting Document(s) ID Date Data Source [id number] 11/24/2019 02:22:41 PM EDT [facility] Reason for Visit and Comments: Follow -up for: [92] - Patient stated appt f/u and due for pap Pain [78] - Patient stated pain in both anklesVitals (Last Filed):BP 110/70 (Orthostatic Site : Arm - Left, Orthostatic Pos- ition : Sitting, Orthostatic Cuff Size : Adult) Pulse 7- 8 Temp 97.2 F (36.2 C) (Oral) Resp 16 Ht 5 6" (1- .676 m) Wt 170 lb (77.1 kg) SpO2 97% BMI 27.44 kg/g3Lwtqtrygwjp, KellyDO 11/24/2019 2:22 PM SignedSUBJECTIVE:HPI: I have identified this patient to be Shanda Coughlin, -1975 w/a PMHx of depression, substance abuse in remission, who presents forChief ComplaintPatient presents with Follow-up for: Patient stated appt f/u and due for pap Pain Patient stated pain in both ankles-needs mammogram, fam h/o cancer (consider genetics referral?-was referred to allergy clinic-needs pap#rash - has a dermatology appointment 12/14#back pain - goes to physical therapy for back pain.#EtOH, cocaine and marijuana use disorder.-Se[facility] a [facility] and gets citalopram, trazadoneand naltrexoneOBJECTIVE:PE:BP 110/70 (Orthostatic Site : Arm - Left, Orthostatic Position : Sitting,Orthostatic Cuff Size : Adult) | Pulse 78 | Temp 97.2 F (36.2 C) (Oral) |Resp 16 | Ht 5 6" (1.676 m) | Wt 170 lb (77.1 kg) | SpO2 97% | BMI 27.44kg/mThe patient appears well, in no apparent distress. Alert and oriented timesthree, pleasant and cooperative. Vital signs are as noted by the nurse.Gen: no apparent distress; cooperative, pleasantHEENT: No scleral icterus, mucous membranes moistNeuro: No focal deficits, normal gaitPsych: Normal speech, appropriate attire for weatherGyn: Vagina and vulva are normal; no discharge is noted. Cervix normalwithout lesions. Pap Smear - is completed today.Procedures/Tests:Results for orders placed or performed in visit on 07/31/19COMP METABOLIC PANELResult Value Ref Range PROTEIN, TOTAL, SERUM 7.1 5.9 - 8.4 g/dL ALBUMIN 4.6 3.5 - 5.2 g/dL GLOBULIN, TOTAL 2.5 1.7 - 3.7 g/dL A/G RATIO 1.8 1.1 - 2.9 Ratio SODIUM 140 135 - 147 mmol/L POTASSIUM 4.4 3.5 - 5.5 mmol/L CHLORIDE 103 96 - 108 mmol/L CARBON DIOXIDE 23 22 - 29 mmol/L UREA NITROGEN (BUN) 11 6 - 20 mg/dL CREATININE 0.83 0.49 - 1.02 mg/dL EGFR 86 >or=60 mL/min EGFR 100 >or=60 mL/min BUN/CREATININE RATIO 13.3 10.0 - 28.0 Ratio CALCIUM 9.1 8.6 - 10.4 mg/dL BILIRUBIN, TOTAL 0.2 <1.2 mg/dL ALKALINE PHOSPHATASE 60 40 - 156 U/L AST (SGOT) 15 <32 U/L ALT (SGPT) 13 <33 U/L GLUCOSE 79 70 - 99 mg/dLCBC WITH DIFFERENTIAL AND PLATELETSResult Value Ref Range WHITE BLOOD CELL (WBC) COUNT 4.89 4.00 - 10.10 x10(3)/uL RED BLOOD CELL (RBC) COUNT 4.14 3.58 - 5.19 x10(6)/uL HEMOGLOBIN 13.1 11.0 - 15.5 g/dL HEMATOCRIT 38.9 31.5 - 44.8 % MCV 94.0 78.0 - 98.0 fL MCH 31.6 25.2 - 32.6 pg MCHC 33.7 31.0 - 34.7 g/dL RDW 12.9 12.0 - 15.5 % POLYS 61.2 37.1 - 78.1 % POLYS, ABS. COUNT 2.99 1.30 - 7.00 x10(3)/uL LYMPHOCYTES 28.4 13.7 - 50.9 % LYMPHS, ABS. COUNT 1.39 0.80 - 3.00 x10(3)/uL MONOCYTES 6.3 3.0 - 11.9 % MONOS, ABS. COUNT 0.31 0.00 - 1.00 x10(3)/uL EOSINOPHILS 3.7 0.0 - 5.0 % EOS, ABS. COUNT 0.18 0.00 - 0.40 x10(3)/uL BASOPHILS 0.4 0.0 - 1.0 % BASOS, ABS. COUNT 0.02 0.00 - 0.10 x10(3)/uL IMMATURE GRANULOCYTES 0.0 0.0 - 1.0 % PLATELETS 213 140 - 425 x10(3)/uL MPV 12.0 8.6 - 12.1 fLTSH, HIGH SENSITIVITY (SERUM)Result Value Ref Range TSH 1.290 0.234 - 4.020 uIU/mLPREGNANCY (URINE) IN HOUSEResult Value Ref Range TEST, URINE NEGATIVE neg INTERNAL CONTROL VALID- URINE YESASSESSMENT/PLAN:After a discussion of the available treatment options (including risks,benefits and alternatives), and using a shared-decision making model asapplicable, the following plan was reached in collaboration with the patient(and/or his/her guardian as indicated):1. Screening for malignant neoplasm of cervix- THINPREP AND HPV W GC/CHLAMYDIA; Future- HANDL &/OR CONVEY SPECMN-TRANSF OFFIC T*- THINPREP AND HPV W GC/CHLAMYDIA2. Screening examination for venereal disease- THINPREP AND HPV W GC/CHLAMYDIA; Future- THINPREP AND HPV W GC/CHLAMYDIA4. Encounter for human immunodeficiency virus (HIV) counseling1 & 2; Future- HIV & . Family history of breast cancer- CONSULT TO GENETICS6. RashHas upcoming visit with dermatology7. Back pain, unspecified back location, unspecified back pain laterality,unspecified chronicityContinue PT, going well8. Polysubstance dependence, non-opioid, in remission (HCC)-continue with current psychiatrist; continue trazaone naltrexone, citalopramas prescribed9. HCM- mammogram completed at [facility]; printed and will be scanned to chart.Future Ap pointmentsDate Time Provider Department Center11/24/2019 3:30 PM Marquez Groves ([place]), DDS [facility] [place] 11/24/2019 2:22 PM SignedI have identified this patient to be SARAH Sparrow -1975.Chief ComplaintPatient presents with Follow- up for: Patient stated appt f/u and due for pap Pain Patient stated pain in both anklesBP 110/70 (Orthostatic Site : Arm - Left, Orthostatic Position : Sitting,Orthostatic Cuff Size : Adult) | Pulse 78 | Temp 97.2 F (36.2 C) (Oral) |Resp 16 | Ht 5 6" (1.676 m) | Wt 170 lb (77.1 kg) | SpO2 97% | BMI 27.44kg/mPain 06/30 todayPharmacy verified and Allergis VerifiedMaryann Mccarthy MA 11/24/2019 2:22 PM SignedI have identified this patient to be Shanda Coughlin, -1975.[facility]anda Coughlin at [facility] center today to have blood drawn. 1 thin preptubes sent to [facility]. She tolerated the procedure well.Results for orders placed or performed in visit on 11/24/19HIV 1 & 2Result Value Ref Range HIV I & II - NON REACTIVE non-reactive HIV KIT LOT # [id number] HIV KIT EXP DATE 2020-06-18 INTERNAL CONTROL VALID- HIV 1 & 2 validPrimary Diagnosis:Z12.4 Screening for malignant neoplasm of cervix Other Diagnoses:Z11.3 Screening examination for venereal disease Z71.7 Encounter for human immunodeficiency virus (HIV)counseling Z80.3 Family history of breast cancer R21 Rash M54.9 Back pain, unspecified back location, unspecifiedback pain laterality, unspecified chronicity F19.21 Polysubstance dependence, non-opioid, in remission(HCC) Z00.00 Health care maintenancePrescriptions as of 11/24/2019 Citalopram Hydrobromide 20 MG Oral Tab Take ONE tablet (20 mg total) by mouth daily ferrous sulfate 325 (65 FE) MG Oral tablet Take 1 tablet by mouth 2 (two) times a day Fexofenadine HCl 180 MG Oral Tab Take ONE tablet (180 mg total) by mouth daily folic acid 1 MG Oral tablet TAKE 1 TABLET BY MOUTH ONCE A DAY Mirtazapine 15 MG Oral Tab Take 1 tablet by mouth nightly Multiple Vitamin (MULTI-VITAMIN) Oral tablet () Take ONE tablet by mouth daily Naltrexone HCl 50 MG Oral Tab 1 tablet daily Nicotine Polacrilex 4 MG Mouth/Throat Gum CHEW 1 PIECE EVERY TWO HOURS NEEDED NEEDED FOR CIGARETTE CRAVINGS. Topiramate 50 MG Oral Tab Take 1 tablet by mouth 2 (two) times a dayFacility-Administered Medications as of 11/24/2019 Ketorolac Tromethamine 30 MG/ML SOLN (Completed)Allergies As of Date: 11/24/2019(No Known Allergies)Date Reviewed: 09/08/2019Reviewed by: Karla Strickland DO - ReviewedLevel of Service:61377 OFFIC/OUTPT VISIT E&M EST LOW-MOD SEVER* Historical Inf ormation --------Past Medical and Surgical HistoryMedical And Surgical History Item DatePsychosocial circumstance 03/27/2011Genital wartsSickle cell trait (HCC)HX SECTION 1997Family History Problem Relation Age of Onset Coronary artery disease Maternal Grandmother 50Family Status - Relation Status Age at Mother Alive Notes: htn, htn, glaucoma, gastritits Father 52 Notes: hiv Sister Alive Notes: alive and well Sister Alive Notes: alive and well Brother Alive Notes: htn Brother Alive Notes: alive and well Brother Alive Notes: alive and well Son Alive Notes: alive and well Maternal GrandmotherSocial History Marital Status: Spouse: Years of Education: # children:Social History Narrative 10/23/2013 Born in [place], [place], Highest level of school Senior in college at [employer] working toward a bachelors, Lives with Son and + 3 cats, Single/: singles, , Work: student Transfusions none, Tattoos yes Professional done yes, Last sexually active currently, History of std Chlamydia, hpv ,Social History Topics Tobacco Use: Quit Years: 2 Comment: quit 08/2013 Alcohol Use: Yes 9.5 oz/week 19 drinks per week Comment: socially, not to intoxation Drug Use: No Comment: mj as a teen Sexually Active: Yes Partners with: Male Comment: Not currently with , "foreplay" with boyfriendImmunizations Administered Tdap 09/11/2019 Tuberculin Test 03/27/2011 Name Value Range Interpretation Code Description Data Eliz rce(s) Supporting Document(s) ID Date Data Source [id number] 11/24/2019 01:55:00 PM EDT [facility] Name Value Range Interpretation Code Description Data Eliz rce(s) Supporting Document(s) HIV I & II - NON REACTIVE non-reactive [facility] HIV KIT LOT # [id number] NA [facility] HIV KIT EXP DATE 2020-06-18 [facility] INTERNAL CONTROL VALID- HIV 1 & 2 valid [facility] ID Date Data Source [id number] 11/27/2019 06:31:00 PM EDT [facility] Name Value Range Interpretation Code Description Data Eliz rce(s) Supporting Document(s) MEAT TEAM LEAD REPORT NILM [facility] DIAGNOSIS: Negative for intra epithelial lesion or malignancyADEQUACY: Satisfactory for evaluation / Satisfactory for evaluationCOMMENT: This Pap smear was screened with the assistance of the Welcome Real-timePrep(TM) Imaging System and screened by a trolley operator.SPECIMEN SOURCE: PAP + HPV PLUS + CT + GC, NOT PROVIDEDCLINICAL INFORMATION: LMP: N/A Provided Diagnosis Codes: Z11.3,Z12.4 Cervicovaginal cytology should be considered a screening procedure subject to false negatives and false positives. Results are more reliable when a satisfactory sample is obtained on a regular repetitive basis, and should be interpreted together with past and current clinical data.ELECTRONICALLY SIGNED BY: Screened By: MISSY Still (ASCP) Case Electronically Signed 11/27/2019 HPV HR NON 16/18 Not Detected [facility] HPV GENOTYPE, 18 Not Detected [facility] HPV GENOTYPE, 16 Not Detected [facility] CHLAMYDIA TRACHOMATIS Not Detected [facility] NEISSERIA GONORRHOEAE NUCLEIC* Not Detected [facility] HPV High Risk DNA (Non 16/18) (2,3,4,6,7 )HPV High Risk DNA Type 18 (2,3,4,6,7)HPV High Risk DNA Type 16 (2,3,4,6,7)CHLAMYDIA, LIQUID-BASED (5,6,7)GONORRHEA, LIQUID-BASED (1,5,6,7)(1)Rare cross-reactivity may occur in this amplified DNA GC assay due to certain strains of N. cinerea, N. subflava and N. lactamica.(2)The hoda(R) HPV test is FDA-cleared for ThinPrep(R) specimens and detects genomic HPV DNA in the polymorphic L1 region in 14 subtypes: Type 16, Type 18, and other high risk types (31,33,35,39,45,51,52,56,58,59,66,68). The test has been modified and validated for use in SurePath(TM) specimens.(3)HPV types 16 and/or 18 that were Not Detected were undetectable or below the pre-set threshold.(4)The non-repeat rate for HPV genotyping assays varies from 5 to 15%. In the NILM cytology category, there is a low positive predictive value (PPV = 15-20%) for CIN2+ with a positive high risk HPV result.(5)Chlamydia trachomatis (CT) and Neisseria gonorrhoeae (NG) qualitative detection is performed on urogenital specimens or urine on one of the below platforms:-[employer](TM) Qx Amplified DNA Assay tested with the CWR Mobility(TM) System using Strand Displacement Amplification technology. FDA cleared for both ThinPrep, SurePath and urine samples.-The Aptima combo 2(R) Assay detects ribosomal RNA (rRNA) using target capture and Clothes Shaker-Mediated Amplification (TMA) technology. FDA cleared for ThinPrep samples. -The hoda(R) CT/NG v2.0 using the hoda(R) 48[address] or [address]/NG on the hoda(R) 8800 detects DNA using Polymerase Chain Reaction (PCR) technology; the assay is FDA cleared for ThinPrep Samples.(6)This test was evaluated and its performance characteristics determined by [facility]. It has not been cleared or approved by the U.S. Food and Drug Administration. The FDA has determined that such clearance or approval is not necessary. [facility] is certified under the Clinical Laboratory Improvement Amendments of 1988 (CLIA) as qualified to perform high complexity clinical testing. This test is used for clinical purposes. It should not be regarded as investigational or for research.(7)Results should be interpreted together with past and current clinical and laboratory data. ID Date Data Source [id number] 09/11/2019 01:04:14 PM EDT [facility] Reason for Visit and Comments: IMM/IN J [58] - T-Dap Administration Medication Management [950] - Medication administrationLadan Enriquez LPN 09/11/2019 1:04 PM SignedI have identified this patient to be Shanda Coughlin, -1975.Chief ComplaintPatient presents with IMM/INJ T-Dap Administration Medication Management Medication administrationPatient received the following medication during this office visit:Administrations This Visit Ketorolac Tromethamine 30 MG/ML SOLN Admin Date09/11/2019 ActionAdministered Dose30 mg RouteIntramuscular Administered ByLadan Enriquez LPNI have identified this patient to be Shanda Coughlin, -1975.Influenza vaccine administered as per provider Marco A s order. See vaccineimm/inj section.Patient Communication and Education AssessmentLearner: PatientLearning Needs reviewed: Immunizations: YesBarriers: NoneTeaching Methods: Lecture/ 1:1 DiscussionVerbalized Understanding: Communicates/understandsFollow up plan: See PCP prnSignature: BA Earlyitle: Del Mathew Diagnosis:M54.32 Sciatica of left side Other Diagnoses:Z23 Need for prophylactic vaccination with combined aclqnrjpxb-dxriyrk-iizzgxrxl (DTP) vaccine M54.32 Sciatica, left side (Active) Z23 Encounter for immunization (Active)Prescriptions as of 09/11/2019 Disp Refills Start End Citalopram Hydrobromide 20 MG Oral* 30 t* 0 08/12/2019 Class: E Prescribing Route: Oral Sig: Take ONE tablet (20 mg total) by mouth daily ferrous sulfate 325 (65 FE) MG Ora* 07/19/2019 Class: Historical Med Route: Oral Sig: Take 1 tablet by mouth 2 (two) times a day folic acid 1 MG Oral tablet 07/19/2019 Class: Historical Med Sig: TAKE 1 TABLET BY MOUTH ONCE A DAY Mirtazapine 15 MG Oral Tab 07/19/2019 Class: Historical Med Route: Oral Sig: Take 1 tablet by mouth nightly Multiple Vitamin (MULTI-VITAMIN) O* 30 t* 6 07/31/2019 10/29/2019 Class: E Prescribing Route: Oral Sig: Take ONE tablet by mouth daily Naltrexone HCl 50 MG Oral Tab 30 t* 0 07/31/2019 Class: E Prescribing Si tablet daily Nicotine Polacrilex 4 MG Mouth/Thr* 07/25/2019 Class: Historical Med Sig: CHEW 1 PIECE EVERY TWO HOURS NEEDED NEEDED FOR CIGARETTE CRAVINGS. Topiramate 50 MG Oral Tab 07/19/2019 Class: Historical Med Route: Oral Sig: Take 1 tablet by mouth 2 (two) times a dayFacility-Administered Medications as of 09/11/2019 Start End Ketorolac Tromethamine 30 MG/ML SO* 09/11/2019 09/11/2019 Class: Administered Route: Intramuscular Dose: 30 mg Frequency: OnceAllergies As of Date: 09/11/2019(No Known Allergies)Date Reviewed: 09/08/2019Reviewed by: Karla Strickland, DO - ReviewedLevel of Service:03707U NURSING VISIT NO CO-PAY Historical Information Past Medical and Surgical HistoryMedical And Surgical History Item DatePsychosocial circumstance 03/27/2011Genital wartsSickle cell trait (HCC)HX SECTION 1997Family History Problem Relation Age of Onset Coronary artery disease Maternal Grandmother 50Family Status - Relation Status Age at Mother Alive Notes: htn, htn, glaucoma, gastritits Father 52 Notes: hiv Sister Alive Notes: alive and well Sister Alive Notes: alive and well Brother Alive Notes: htn Brother Alive Notes: alive and well Brother Alive Notes: alive and well Son Alive Notes: alive and well Maternal GrandmotherSocial History Marital Status: Spouse: Years of Education: # children:Social History Narrative [birth year]/23/2013 Born in [place], [place], Highest level of school Senior in college at [employer] working toward a bachelors, Lives with Son and + 3 cats, Single/: singles, , Work: student Transfusions none, Tattoos yes Professional done yes, Last sexually active currently, History of std Chlamydia, hpv ,Social History Topics Tobacco Use: Quit Years: 2 Comment: quit 08/2013 Alcohol Use: Yes 9.5 oz/week 19 drinks per week Comment: socially, not to intoxation Drug Use: No Comment: mj as a teen Sexually Active: Yes Partners with: Male Comment: Not currently with , "foreplay" with boyfriendImmunizations Administered Tdap 09/11/2019 Tuberculin Test 03/27/2011 Name Value Range Interpretation Code Description Data Eliz rce(s) Supporting Document(s) ID Date Data Source [id number] 08/13/2019 08:19:51 AM EDT [facility] Name Value Range Interpretation Code Description Data Eliz rce(s) Supporting Document(s) Progress Note [facility] [id number] lbm [file] [id number] ID Date Data Source [id number] 07/31/2019 02:47:54 PM EDT [facility] Reason for Visit and Comments: Other [0] - Room 10 Missed Period [189] - last month but got it this month Fatigue [46]Vitals (Last Filed):BP 120/82 (Orthostatic Site : Arm - Left, Orthostatic Pos- ition : Sitting, Orthostatic Cuff Size : Adult) Pulse 5- 6 Temp 98.4 F (36.9 C) (Oral) Resp 20 Ht 5 6" (1- .676 m) Wt 158 lb (71.7 kg) LMP 07/28/2019 (Exact Anthony- e) BMI 25.5 kg/w8Lrcjgt History RecordedChrist Price MA 07/31/2019 2:47 PM SignedI have identified this patient to be Shanda Bry, -1975.Chief ComplaintPatient presents with? Other Room 10? Missed Period last month but got it this month? FatigueBP 120/82 (Orthostatic Site : Arm - Left, Orthostatic Position : Sitting,Orthostatic Cuff Size : Adult) | Pulse 56 | Temp 98.4 F (36.9 C) (Oral) |Resp 20 | Ht 5 6" (1.676 m) | Wt 158 lb (71.7 kg) | LMP 07/28/2019 (ExactDate) | BMI 25.50 kg/mPatient reports a pain score of "0- None" in her No pain location entered forpatient.Mental Health Screenings and AssessmentsPHQ-2: Over the the past two weeks, how often have you been bothered by thefollowing...?PHQ-2 Total: 0PHQ-9:Over the past two weeks, how often have you been bothered by thefollowing...? (Surinder las ultimas 2 semanas, con que frecuencia le hanmolestado los siguientes problemas...?)1. Little interest or pleasure doing things (Tener poco interes o disfrutarpoco de hacer cosas): Not at all2. Feeling down, depressed, or hopeless (Sentirse desanimado/a, deprimido/a, osin randy): Not at all4. Feeling tired or having little energy (Sentirse cansado/a o con pocaenergia): Nearly every day5. Poor appetite or overeating (Tener poco apetito o comer en exceso): Nearlyevery day(Over eating)6 . Feeling bad about yourself- or that you are a failure or have let yourselfor your family down (Sentimientos de culpabilidad, desesperanza o perdida deautoestima ? sensacion de ser un fracaso o kwesi decepcionado a topete liban osi mismo): More than half the days(sometimes)7. Trouble concentrating on things such as reading the newspaper or watchingtelevision (Tener problemas para concentrarse, samuel por ejemplo para leer elperiodico o pascual la television): Not at all8. Moving or speaking slowly that other people have noticed. Or being sofidgety or restless that you have been moving around more than usual. (Moverseo hablar lentamente que los demas lo taveras notado? o estar mas inquieto ointranquilo de lo habitual): Nearly every day9. Thoughts that you would be better off or of hurting yourself insomeway. (Tener pensamientos de que seria mejor estar muerto/a o de hacersedano a si mismo de alguna manera): Not at allPatient is on antidepressantsLukose, Junior, PA 07/31/2019 2:47 PM SignedI have identified this patient to be Shanda Coughlin -1975.Walk-inChief ComplaintPatient presents with? Other Room 10? Missed Period last month but got it this month? FatigueHPIPatient is a 43 year old female with PMHx (see list below) who comes to theclinic for above symptoms on and off for 3 months.Pt started taking naltrexone 50mg and citalopram 10mg 3 months agoHx of alcohol and drug use.Last use of alcohol 04/15/2019Strong family hx of hyperthyroid, mother and sisterPt reports increased fatigue during the day.Pt usually has to take a nap when feeling tiredCurrently pt feels wellWants to know if she has any thyroid abnormalitiesLast menstrual 07/28/2019Missed menstrual in june pt is worried about thatReview Of SystemsEyes: glasses, gluacoma both eyesEars/Nose/Throat: negativeRespiratory: negativeCardiovascular: negativeGastrointestinal: negativeGenitourinary: negativePatient Active Problem ListDiagnosis? Routine general medical examination at a health care facility? Depression? Psychosocial circumstance? Alcohol abuse? Employment problem? SIMA (generalized anxiety disorder)? Marital conflict? Major depressive disorder, recurrent episode, moderate (HCC)No Known AllergiesFamily HistoryProblem Relation Age of Onset? Coronary artery disease Maternal Grandmother 50Social HistorySocioeconomic History? Marital status: Not on file Spouse name: Not on file? Number of children: Not on file? Years of education: Not on file? Highest education level: Not on fileOccupational History? Not on fileSocial Needs? Financial resource strain: Not on file? Food insecurity Worry: Not on file Inability: Not on file? Transportation needs Medical: Not on file Non-medical: Not on fileTobacco Use? Smoking status: Former Smoker Years: 2.00? Smokeless tobacco: Never Used? Tobacco comment: quit 08/2013Substance and Sexual Activity? Alcohol use: Yes Alcohol/week: 15.8 standard drinks Types: 19 drink(s) per week Comment: socially, not to intoxation? Drug use: No Comment: mj as a teen? Sexual activity: Yes Partners: Male Comment: Not currently with , "foreplay" with boyfrienAnna? Physical activity Days per week: Not on file Minutes per session: Not on file? Stress: Not on fileRelationships? Social connections Talks on phone: Not on file Gets together: Not on file Attends jewish service: Not on file Active member of club or organization: Not on file Attends meetings of clubs or organizations: Not on file Relationship status: Not on file? Intimate partner violence Fear of current or ex partner: Not on file Emotionally abused: Not on file Physically abused: Not on file Forced sexual activity: Not on fileOther Topics Concern? Not on fileSocial History Narrative 10/23/2013 Born in [place], [place], Highest level of school Senior in college at [employer] working toward a [employer], Lives with Son and + 3 cats, Single/: singles, , Work: student Transfusions none, Tattoos yes Professional done yes, Last sexually active currently, History of std Chlamydia, hpv ,Past Surgical History:Procedure Laterality Date? HX SECTION 1996O:BP 120/82 (Orthostatic Site : Arm - Left, Orthostatic Position : Sitting,Orthostatic Cuff Size : Adult) | Pulse 56 | Temp 98.4 F (36.9 C) (Oral) |Resp 20 | Ht 5 6" (1.676 m) | Wt 158 lb (71.7 kg) | LMP 07/28/2019 (ExactDate) | BMI 25.50 kg/mPhysical Examination: General appearance - alert, well appearing, and in nodistressNeck - supple, no significant adenopathyChest - clear to auscultation, no wheezes, rales or rhonchi, symmetric air entryHeart - normal rate, regular rhythm, normal S1, S2, no murmurs, rubs, clicks orgallopsResults for orders placed or performed in visit on 07/31/19PREGNANCY (URINE) IN HOUSEResult Value Ref Range TEST, URINE NEGATIVE neg INTERNAL CONTROL VALID- URINE YESA/P(R42) Dizziness (primary encounter diagnosis)Comment: ekg wnl limits F/u labs results via telehealthPlan: ECG-ROUTINE W/12 LEADS; W/INTERPT & REP*, TSH, HIGH SENSITIVITY (SERUM), CBC WITH DIFFERENTIAL AND PLATELETS, COMP METABOLIC PANEL(N91.2) Absence of menstruationComment: currently menstruatingPlan: (URINE) IN SOUTH HEARTRT if symptoms persist or worsenThe patient was warned about the serious risks and complications of notfollowing up as discussed during the visit and verbalized an understanding ofthe plan.Meagan Gary MA 07/31/2019 1:29 PM SignedI have identified this patient to be Shanda Coughlin -1975.Results for orders placed or performed in visit on 07/31/19PREGNANCY (URINE) IN SOUTH HEARTResult Value Ref Range TEST, URINE NEGATIVE neg INTERNAL CONTROL VALID- URINE YESEkg was performed as per provider s ordersGeormilena [facility]. oNE SPECKLE, ONELAVENDER tubes sent to [facility]. She tolerated the procedure well andwill return to the clinic for results.Primary Diagnosis:R42 Dizziness Other Diagnoses:N91.2 Absence of menstruation F10.21 Alcohol dependence in remission (HCC) R42 Dizziness and giddiness (Active) Comment:Billing Diagnosis N91.2 Amenorrhea, unspecified (Active) Comment:Billing Diagnosis F10.21 Alcohol dependence, in remission (Active) Comment:Billing DiagnosisPrescriptions as of 07/31/2019 Disp Refills Start End Ketorolac Tromethamine 30 MG/ML In* 1 mL 0 05/05/2015 Class: In House Route: Intramuscular Sig: Inject 1 mL (30 mg total) into the shoulder, thigh or buttocks now for 1 dose * Multiple Vitamin (MULTI- VITAMIN) O* 30 t* 6 07/31/2019 10/29/2019 Class: E Prescribing Route: Oral Sig: Take ONE tablet by mouth daily * Naltrexone HCl 50 MG Oral Tab 30 t* 0 07/31/2019 Class: E Prescribing Si tablet dailyAllergies As of Date: 07/31/2019(No Known Allergies)Date Reviewed: 07/31/2019Reviewed by: Junior Suresh PA - ReviewedLevel of Service:[id number] OFFIC/OUTPT VISIT E&M EST LOW-MOD SEVER* Historical Information------- Past Medical and Surgical HistoryMedical And Surgical History Item DatePsychosocial circumstance 03/27/2011Genital wartsSickle cell trait (HCC)HX SECTION 1997Family History Problem Relation Age of Onset Coronary artery disease Maternal Grandmother 50Family Status - Relation Status Age at Mother Alive Notes: htn, htn, glaucoma, gastritits Father 52 Notes: hiv Sister Alive Notes: alive and well Sister Alive Notes: alive and well Brother Alive Notes: htn Brother Alive Notes: alive and well Brother Alive Notes: alive and well Son Alive Notes: alive and well Maternal GrandmotherSocial History Marital Status: Spouse: Years of Education: # children:Social History Narrative 10/23/2013 Born in [place], Highest level of school Senior in college at [employer] working toward a bachelors, Lives with Son and + 3 cats, Single/: singles, , Work: student Transfusions none, Tattoos yes Professional done yes, Last sexually active currently, History of std Chlamydia, hpv ,Social History Topics Tobacco Use: Quit Years: 2 Comment: quit 08/2013 Alcohol Use: Yes 9.5 oz/week 19 drinks per week Comment: socially, not to intoxation Drug Use: No Comment: mj as a teen Sexually Active: Yes Partners with: Male Comment: Not currently with , "foreplay" with boyfriendImmunizations Administered Tuberculin Test 03/27/2011 Name Value Range Interpretation Code Description Data Eliz rce(s) Supporting Document(s) ID Date Data Source [id number] 07/31/2019 01:26:00 PM EDT [facility] Name Value Range Interpretation Code Description Data Eliz rce(s) Supporting Document(s) TEST, URINE NEGATIVE neg [facility] INTERNAL CONTROL VALID- URINE YES [facility] ID Date Data Source [id number] 08/01/2019 03:11:00 AM EDT [facility] Name Value Range Interpretation Code Description Data Eliz rce(s) Supporting Document(s) PROTEIN, TOTAL, SERUM 7.1 g/dL 5.9-8.4 [facility] ALBUMIN 4.6 g/dL 3.5-5.2 The [facility] GLOBULIN, TOTAL 2.5 g/dL 1.7-3.7 [facility] A/G RATIO 1.8 Ratio 1.1-2.9 The [facility] SODIUM 140 mmol/L 135-147 [facility] POTASSIUM 4.4 mmol/L 3.5-5.5 [facility] CHLORIDE 103 mmol/L 96-108 [facility] CARBON DIOXIDE 23 mmol/L 22-29 The [facility] NITROGEN (BUN) 11 mg/dL 6-20 The [facility] CREATININE 0.83 mg/dL 0.49-1.02 [facility] EGFR 86 mL/min >or=60 The [facility] EGFR 100 mL/min >or=60 The [facility] BUN/CREATININE RATIO 13.3 Ratio 10.0-28.0 The [facility] CALCIUM 9.1 mg/dL 8.6-10.4 The [facility] BILIRUBIN, TOTAL 0.2 mg/dL <1.2 [facility] ALKALINE PHOSPHATASE 60 U/L 40-156 The [facility] AST (SGOT) 15 U/L <32 [facility] ALT (SGPT) 13 U/L <33 [facility] GLUCOSE 79 mg/dL 70-99 The [facility] ID Date Data Source [id number] 08/01/2019 01:19:00 AM EDT [facility] Name Value Range Interpretation Code Description Data Eliz rce(s) Supporting Document(s) TSH 1.290 uIU/mL 0.234-4.020 [facility] ID Date Data Source [id number] 07/31/2019 11:45:00 PM EDT [facility] Name Value Range Interpretation Code Description Data Eliz rce(s) Supporting Document(s) WHITE BLOOD CELL (WBC) COUNT 4.89 x10(3)/uL 4.00-10.10 [facility] RED BLOOD CELL (RBC) COUNT 4.14 x10(6)/uL 3.58-5.19 [facility] HEMOGLOBIN 13.1 g/dL 11.0-15.5 [facility] HEMATOCRIT 38.9 % 31.5-44.8 [facility] MCV 94.0 fL 78.0-98.0 The [facility] MCH 31.6 pg 25.2-32.6 The [facility] MCHC 33.7 g/dL 31.0-34.7 The [facility] RDW 12.9 % 12.0-15.5 The [facility] POLYS 61.2 % 37.1-78.1 The [facility] POLYS, ABS. COUNT 2.99 x10(3)/uL 1.30-7.00 The [facility] LYMPHOCYTES 28.4 % 13.7-50.9 [facility] LYMPHS, ABS. COUNT 1.39 x10(3)/uL 0.80-3.00 The [facility] MONOCYTES 6.3 % 3.0-11.9 The [facility] MONOS, ABS. COUNT 0.31 x10(3)/uL 0.00-1.00 [facility] EOSINOPHILS 3.7 % 0.0-5.0 [facility] EOS, ABS. COUNT 0.18 x10(3)/uL 0.00-0.40 [facility] BASOPHILS 0.4 % 0.0-1.0 The [facility] BASOS, ABS. COUNT 0.02 x10(3)/uL 0.00-0.10 The [facility] IMMATURE GRANULOCYTES 0.0 % 0.0-1.0 [facility] PLATELETS 213 x10(3)/uL 140-425 The [facility] MPV 12.0 fL 8.6-12.1 The [facility] Procedure Social History Code Duration Value Status Description Data Source(s ) Alcohol intake 01/27/2020 12:00:00 AM EST Current drinker of al cohol (finding) completed Current drinker of alcohol (finding) [facility] Tobacco use and exposure 01/27/2020 12:00:00 AM EST Never used co mpleted Never used [facility] Smoking 01/27/2020 12:00:00 AM EST Former smoker completed Former smoker [facility] Alcohol intake 11/24/2019 12:00:00 AM EDT Current drinker of al cohol (finding) completed Current drinker of alcohol (finding) [facility] Alcohol intake 09/08/2019 12:00:00 AM EDT Current drinker of al cohol (finding) completed Current drinker of alcohol (finding) [facility] Alcohol intake 08/13/2019 12:00:00 AM EDT Lifetime non-drinker (finding) completed Lifetime non-drinker (finding) [facility] Tobacco use and exposure 08/13/2019 12:00:00 AM EDT Never used co mpleted Never used [facility] Smoking 08/13/2019 12:00:00 AM EDT Never smoker completed Never s [facility] Smoking 08/13/2019 12:00:00 AM EDT Never smoker completed Never [facility] Tobacco smoking status IAIS 08/12/2019 12:00:00 AM EDT Former smoker [facility] Tobacco use and exposure 08/12/2019 12:00:00 AM EDT Never used [facility] Alcohol intake 08/12/2019 12:00:00 AM EDT Current drinker of al cohol (finding) [facility] Tobacco smoking status IAIS 07/31/2019 12:00:00 AM EDT Former smoker [facility] Alcohol intake 07/31/2019 12:00:00 AM EDT Current drinker of al cohol (finding) [facility] Tobacco use and exposure 07/31/2019 12:00:00 AM EDT Never used [facility] Vital Signs ID Date Data Source UNK Name Value Range Interpretation Code Description Data Source(s) Body mass index (BMI) [Ratio] 28.41 kg/m2 28.41 kg/m2 [facility] Body weight 79.833 kg 79.833 kg [facility] Body height 167.6 cm 167.6 cm [facility] Body temperature 36 Stella 36 Stella The [facility] Heart rate 67 /min 67 /min [facility] Diastolic blood pressure 62 mm[Hg] 62 mm[Hg] [facility] Systolic blood pressure 97 mm[Hg] 97 mm[Hg] T [facility] Oxygen saturation in Arterial blood by Pulse oximetry 97 % 97 % [facility] Body mass index (BMI) [Ratio] 27.44 kg/m2 27.44 kg/m2 [facility] Body weight 77.111 kg 77.111 kg [facility] Body height 167.6 cm 167.6 cm [facility] Respiratory rate 16 /min 16 /min [facility] Body temperature 36.22 Stella 36.22 Stella [facility] Heart rate 78 /min 78 /min [facility] Diastolic blood pressure 70 mm[Hg] 70 mm[Hg] [facility] Systolic blood pressure 110 mm[Hg] 110 mm[Hg] T [facility] Body weight 71.668 kg 71.668 kg [facility] Body height 167.6 cm 167.6 cm [facility] Respiratory rate 20 /min 20 /min [facility] Body temperature 36.89 Stella 36.89 Stella [facility] Heart rate 56 /min 56 /min [facility] Diastolic blood pressure 82 mm[Hg] 82 mm[Hg] [facility] Systolic blood pressure 120 mm[Hg] 120 mm[Hg] T [facility] ID Date Data Source [id number] 08/13/2019 08:19:51 AM EDT [facility] Name Value Range Interpretation Code Description Data Source(s) WEIGHT RECORDED 180 lb 180 lb [facility] Body height Measured [address] [facility] Patient Treatment Plan of Care Planned Activity Planned Date Details Description Data Source (s) Docusate Sodium 100 MG Oral Capsule 02/24/2020 12:00:00 AM EST [facility] Docusate Sodium 100 MG Oral Capsule 01/27/2020 12:00:00 AM EST [facility] Ibuprofen 400 MG Oral Tablet 01/27/2020 12:00:00 AM EST [facility] Folic Acid 1 MG Oral Tablet 12/20/2019 12:00:00 AM EDT [facility] Multiple Vitamin (MULTI-VITAMIN) Oral tablet 12/20/2019 12:00:00 AM EDT [facility] Fexofenadine hydrochloride 180 MG Oral Tablet 10/10/2019 12:00:00 A M EDT [facility] Citalopram 20 MG Oral Tablet 08/12/2019 12:00:00 AM EDT [facility] Naltrexone hydrochloride 50 MG Oral Tablet 07/31/2019 12:00:00 AM E DT [facility] Multiple Vitamin (MULTI-VITAMIN) Oral tablet 07/31/2019 12:00:00 AM EDT [facility] Nicotine 4 MG Chewing Gum 07/25/2019 12:00:00 AM EDT [facility] ferrous sulfate 325 MG Oral Tablet 07/19/2019 12:00:00 AM EDT [facility] Mirtazapine 15 MG Oral Tablet 07/19/2019 12:00:00 AM EDT [facility] topiramate 50 MG Oral Tablet 07/19/2019 12:00:00 AM EDT [facility] Folic Acid 1 MG Oral Tablet 07/19/2019 12:00:00 AM EDT [facility] 1 ML Ketorolac Tromethamine 30 MG/ML Injection 05/05/2015 12:00:00 AM EST [facility]
[2020-03-24] MEDS ORDERED: ESCI10TA16 PO (17:44)
[2020-03-24] MEDS ORDERED: SUMA100T2 (17:46)
[2020-03-24] MEDS ORDERED: EXCETAB33 PO (17:47)
[2020-03-24] MEDS ORDERED: DEXM1CAP3 PO (17:47)
[2020-03-24] MEDS ORDERED: IBUP200T45 PO (17:48)
[2020-03-24] MEDS ORDERED: NS 1,000 ML IV ONE (18:30)
[2020-03-24] MEDS ORDERED: KETOROLAC 30 MG/ML 1ML VIAL IV ONE (18:30)
[2020-03-24] MEDS ORDERED: METOCLOPRAMIDE INJ 10MG/2ML VIAL (J2765 PER 1) IV ONE (18:30)
[2020-03-24] MEDS ORDERED: diphenhydrAMINE 50MG/ML VIAL (J1200) IV ONE (18:30)
--- OUTSIDE RECORDS SUMMARY | 2020-03-24 18:35 | CCD ---
Author Author [facility] Address Unknown Phone Unavailable Care Team Providers Care Refractory Mixer Name Role Phone FERNÁNDEZ, LADAN Unavailable Unavailable [...] Unavailable SuryadeConnie burciaga MD Unavailable Unavailable SuryadeConnie bucriaga MD Unavailable Unavailable SuryadeConnie burciaga MD Unavailable [...] is protected by Article 27-F of the [facility] Public Health law. If you continue you may have access to information: Regarding HIV / AIDS; Provided by facilities licensed or operated by the [facility] Office of Mental Health; or Provided by the [facility] Office for People With Developmental Disabilities. If such information is present, then the following [facility] mandated warning applies: This information has been [...] NO KNOWN ALLERGIES NO KNOWN ALLERGIES [facility] Family History Family Member Name Family Member Gender Family Member Status Date o f Status Description Data Source(s) Unknown Unknown Problem [facility] ([facility] ) Unknown Male Problem [facility] ([facility] Encounters Encounter Providers Location Date Indications Data Source(s ) Outpatient Attender: Esteban Ball MD 04/14/2020 12:00: 00 AM [facility] Outpatient Attender: LADAN FERNÁNDEZ 03/24/2020 03:40: 07 PM [facility] Patient admitted. Outpatient Attender: LADAN FERNÁNDEZ 03:31:[address] [facility] 03/24/2020 03:49:30 PM EST [facility] Patient admitted. Outpatient Attender: Esteban Ball MD 03/24/2020 12:00: 00 AM EST [facility] Outpatient Attender: Karla Strickland 02/24/2020 10:04:10 AM EST [facility] Patient admitted. Outpatient Attender: LADAN FERNÁNDEZ 02/09/2020 11:13: 25 AM EST [facility] Patient admitted. Outpatient Attender: Karla Strickland 01/27/2020 02:33:55 PM EST [facility] Patient admitted. Outpatient Attender: LADAN FERNÁNDEZ 10:15:48 AM EST - 01/26/2020 10:29:09 AM EST [facility] Patient admitted. Outpatient Attender: LADAN FERNÁNDEZ 01/16/2020 05:04: 05 PM EST [facility] Patient admitted. Outpatient Attender: HONEY DE SOUZA 01/01/2020 10:46:4 3 AM EST [facility] Patient admitted. Outpatient Attender: Esteban Ball MD [id number] 12/24/2019 12:00:00 AM EDT [facility] Outpatient Attender: Junior Suresh 12/20/2019 09:41:40 AM E DT [facility] Patient admitted. Outpatient Attender: Diaz Tyler MD Main office - [place] 12/12/2019 11:45:00 AM EDT [facility] ([facility]ared, ) Outpatient 12/10/2019 03:08:30 PM EDT [facility] Patient admitted. Outpatient Attender: HONEY DE SOUZA 12/09/2019 02:07:2 9 PM EDT [facility] Patient admitted. Outpatient 11/29/2019 09:03:42 AM EDT [facility] Patient admitted. Outpatient Attender: HONEY DE SOUZA 11/29/2019 09:02:4 7 AM EDT [facility] Patient admitted. Outpatient Attender: Emy Alicea 11/24/2019 03:46:20 PM EDT [facility] Patient admitted. Outpatient Attender: Karla Strickland 10/28 01:03:21 PM EDT - 11/24/2019 02:22:40 PM EDT [facility] Patient admitted. Outpatient Attender: Ginna Geller 10/28/2019 09:35:28 A M EDT [facility] Patient admitted. Outpatient Attender: Junior Suresh 0 01:49:10 PM EDT - 10/24/2019 07:48:47 PM EDT [facility] Patient admitted. Outpatient 10/16/2019 11:27:03 AM EDT [facility] Patient admitted. Outpatient 10/10/2019 09:20:39 AM EDT [facility] Patient admitted. Outpatient Attender: Junior Suresh 0 02:21:16 PM EDT - 10/10/2019 06:18:00 PM EDT [facility] Patient admitted. Outpatient Attender: Edy George 10/08/2019 02:28:05 PM EDT [facility] Patient admitted. Outpatient 10/06/2019 03:02:21 PM EDT [facility] Patient admitted. Outpatient 10/06/2019 10:07:18 AM EDT [facility] Patient admitted. Outpatient Attender: Karla Strickland 08/2019 12:37:43 PM EDT - 10/06/2019 10:08:45 AM EDT [facility] Patient admitted. Outpatient Attender: Tacho Kasper 09/29/2019 11:28:56 AM EDT [facility] Patient admitted. Outpatient Attender: Karla Strickland 09/26/2019 11:03:34 AM EDT [facility] Patient admitted. Outpatient Attender: Karla Strickland 09/18/2019 10:26:40 AM EDT [facility] Patient admitted. Outpatient Attender: LARRY GTZ 020 12:25:50 PM EDT - 09/11/2019 01:04:11 PM EDT [facility] Patient admitted. Outpatient 09/10/2019 08:38:30 AM EDT [facility] Patient admitted. Outpatient Attender: Karla Strickland 08/26 09:38:34 AM EDT - 09/08/2019 04:40:12 PM EDT [facility] Patient admitted. Outpatient Attender: Esteban Ball MD 09/01/2019 12:00: 00 AM EDT [facility] Outpatient Attender: Karla Strickland 07/27 09:13:34 AM EDT - 08/12/2019 10:28:03 AM EDT [facility] Patient admitted. Outpatient Attender: Esteban Ball MD [id number] 08/04/2019 12:00:00 AM EDT [facility] Outpatient Attender: Junior Suresh 0 11:12:25 AM EDT - 07/31/2019 02:47:53 PM EDT [facility] Patient admitted. Outpatient Attender: Hyacinth Garcia 07/28/2019 09:05:34 AM E DT [facility] Patient admitted. Outpatient Attender: Diaz Tyler MD Main office - [place] 07/02/2019 02:45:00 PM EDT [facility] ([facility]) Outpatient Attender: Esteban Ball MD 05/26/2019 12:00: 00 AM [facility] Outpatient Attender: Diaz Tyler MD Main office - [place] 02/12/2019 09:45:00 AM EST [facility] ([facility]) Immunizations Vaccine Date Status Description Data Source(s) Influenza, injectable, MDCK, preservative free, jasmin valent 01/27/2020 12:00:00 AM EST completed Influenza, Injectable,(cciiv 4), Quadrivalent, Preservative Free 01/27/2020 [facility] Tdap 09/11/2019 12:00:00 AM EDT completed Tdap 09/11/2019 [facility] Medications Medication Brand Name Start Date Product [...] DAILY DOSE = TWO CAPSULES SOLD: 03/12/2020 [facility] Docusate Sodium 100 MG Oral Capsule docusate sodium 10 0 MG Oral capsule docusate sodium 100 MG Oral capsule 02/24/2020 12:00:00 AM EST 100 mg Oral active Constipation, unspecified constipation type Take ONE c apsule (100 mg total) by mouth 2 (two) times a day as needed for constipation [facility] Constipation, unspecified constipation t ype 15 mg 01/29/2020 12:00:00 AM EST capsule,ER biphasic 50- 50 60 TAKE ONE CAPSULE BY MOUTH EVERY MORNING AND ONE CAPSULE BY MOUTH A NOON MAXIMUM DAILY DOSE = 2 TABLETS TAKE ONE CAPSULE BY MOUTH EVERY MORNING AND ONE CAPSULE BY MOUTH A NOON MAXIMUM DAILY DOSE = 2 TABLETS SOLD: 02/01/2020 [facility] Docusate Sodium 100 MG Oral Capsule docusate sodium 10 0 MG Oral capsule docusate sodium 100 MG Oral capsule 01/27/2020 12:00:00 AM EST 100 mg Oral aborted Constipation, unspecified constipation type Take ONE c apsule (100 mg total) by mouth 2 (two) times a day as needed for constipation [facility] Constipation, unspecified constipation t ype Ibuprofen 400 MG Oral Tablet ibuprofen 400 MG Oral tab let ibuprofen 400 MG Oral tablet 01/27/2020 12:00:00 AM EST 400 mg Oral active Elida l URI Take ONE tablet (400 mg total) by mouth every 6 (six) hours as needed for mild pain for up to 10 days [facility] Viral URI Multiple Vitamin (MULTI-VITAMIN) Oral tablet [id number] 12/20/2019 12:00:00 AM EDT 1 {tbl} Oral active Alcohol dependence in re mission (HCC) Take ONE tablet by mouth daily [facility] Alcohol dependence in remission ([facility]) Folic Acid 1 MG Oral Tablet folic acid 1 MG Oral table t folic acid 1 MG Oral tablet 12/20/2019 12:00:00 AM EDT 1 mg Oral activ e Alcohol dependence in remission (HCC) Take ONE tablet (1 mg total) by mouth da citlaly [facility] Alcohol dependence in remission ([facility]) 100 mg 12/12/2019 12:00:00 AM EDT tablet [...] 12/12/2019 12:00:00 AM EDT ORAL active [facility] ([facility], ) 100 mg 10/10/2019 12:00:00 [...] mg total) b y mouth daily [facility] Rash 15 mg 10/09/2019 12:00:00 AM EDT [...] dose, Anjelica 09/11/19 at 0000, Administered [facility] Sciatica of left side Medication administered onsite [...] (20 mg total) by mouth daily [facility] Mild major depression, single episode (H CC) Take ONE tablet (20 mg total) by mouth d aily Multiple Vitamin (MULTI-VITAMIN) Oral tablet [id number] 07/31/2019 12:00:00 AM EDT 1 {tbl} Oral aborted Alcohol dependence in re mission (HCC) Take ONE tablet by mouth daily [facility] Alcohol dependence in remission (HCC) Take ONE tablet by mouth daily Naltrexone hydrochloride 50 MG Oral Tablet Naltrexone HCl 50 MG Oral Tab Naltrexone HCl 50 MG Oral Tab 07/31/2019 12:00:00 AM EDT active Alcohol dependence in remission (HCC) 1 tablet daily [facility] Alcohol dependence in remission (HCC) 1 tablet daily Nicotine 4 MG Chewing Gum Nicotine Polacrilex 4 MG Kira th/Throat Gum Nicotine Polacrilex 4 MG Mouth/Throat Gum 07/25/2019 12:00:00 AM EDT active CHEW 1 PIECE EVERY TWO HOURS NEEDED NEEDED FOR C IGARETTE CRAVINGS. [facility] CHEW 1 PIECE EVERY TWO HOURS NEEDED A S NEEDED FOR CIGARETTE CRAVINGS. topiramate 50 MG Oral Tablet Topiramate 50 MG Oral Tab Topiramate 50 MG Oral Tab 07/19/2019 12:00:00 AM EDT 1 {tbl} Oral active Take 1 tablet by mouth 2 (two) times a day [facility] Take 1 tablet by mouth 2 (two) times a d ay Mirtazapine 15 MG Oral Tablet Mirtazapine 15 MG Oral Tab 12:00:00 AM EDT 1 {tbl} Oral active Take 1 tablet by mouth nightly [facility] Take 1 tablet by mouth nightly ferrous sulfate 325 MG Oral Tablet ferrous sulfate 325 (65 FE) MG Oral tablet ferrous sulfate 325 (65 FE) MG Oral tablet 07/19/2019 12:00:00 AM EDT 1 {tbl} Oral active Take 1 tablet by kira th 2 (two) times a day [facility] Take 1 tablet by mouth 2 (two) times a d ay Folic Acid 1 MG Oral Tablet folic acid 1 MG Oral table t folic acid 1 MG Oral tablet 07/19/2019 12:00:00 AM EDT aborted TAKE 1 TABLET BY MOUTH ONCE A DAY [facility] TAKE 1 TABLET BY MOUTH ONCE A [...] 07/02/2019 12:00:00 AM EDT ORAL completed [facility] ([facility]) Citalopram 20 MG Oral Tablet Citalopram Hydrobromide 2 0 MG Oral Tab Citalopram Hydrobromide 20 MG Oral Tab 06/30/2019 12:00:00 AM EDT 1 {tbl} Oral completed Take 1 tablet by mouth daily [facility] Take 1 tablet by mouth daily 5 [...] 05/02/2019 12:00:00 AM EST ORAL completed [facility] ([facility]) 500 mg 05/02/2019 12:00:00 AM [...] 12:00:00 AM EST ORAL co mpleted [facility] ([facility]) 24 HR venlafaxine 37.5 MG Extended Release Oral Capsule Venl afaxine HCL ER 02/12/2019 12:00:00 AM EST ORAL completed [facility] ([facility]) 37.5 mg 02/12/2019 12:00:00 [...] or buttocks now for 1 dose [facility] Right-sided low back pain with right-soledad ed sciatica Inject 1 mL (30 mg total) into the shoul sherly, thigh or buttocks now for 1 dose Insurance Providers Payer name Policy type / Coverage type Policy ID Covered republican ID Covered republican's relationship to danielson Policy Danielson Plan Information JIM CARE [id number] Self [id number] JIM CARE [id number] Self [id number] JIM CARE [id number] Self [id number] SLIDING FEE [id number] Self [id number] SELF PAY/NO SLIDE 99 Self 99 MEDICAID [place] [id number] Self [id number] SLIDING FEE [id number] Self [id number] [employer]IGROUP [id number] Self [id number] [employer] [id number] Self [id number] [place] [id number] Self [id number] JIM CARE HARP [id number] JIM CARE Medicaid Mgd Care [id number] [place]ICAID [place] Medicaid 125 [id number] JIM CARE [id number] Self [id number] [facility] [id number] Se lf [id number] [facility] [id number] SP [id number] [facility] U [id number] Se lf [id number] [facility] U Self SLIDING FEE Uninsured [id number] SLIDING FEE [id number] Self [id number] [facility] [id number] SP [id number] ANSI-Commercial [id number] ANSI-Wat[employer] [id number] [facility] [id number] SP [id number] ANSI-Commercial [id number] ANSI-Commercial [id number] ANSI-Commercial [id number] ANSI-Commercial [id number] ANSI-Commercial [id number] ANSI-Commercial [id number] ANSI-Commercial [id number] ANSI-Commercial [id number] [facility] Organization ([facility] [id number] [facility] Dependent [id number] ANSI-Commercial [id number] ANSI-Commercial [id number] ANSI-Commercial [id number] ANSI-Commercial [id number] ANSI-Commercial [id number] ANSI-Commercial [id number] ANSI-Commercial [id number] [facility] [id number] SP [id number] [facility] Maintenance Organization (HMO) [id number] Family Dependent [id number] [facility] Commercial [id number] Self [id number] [facility] Commercial [id number] Self [id number] [facility] O [id number] S [id number] [facility] [id number]/NOT FOR TODAY SP [id number]/NOT FOR TODAY SELF PAY UNAVAILABLE SP UNAVAILA [employer]LE [employer] [id number] SP [id number] [place] [employer] [place] [employer] [id number] SP [id number] [place] [employer] [id number] SP [id number] Problems, Conditions, and Diagnoses Code Display Name Description Problem Type Effective Dates Data Source(s) Circadian rhythm sleep disorder, 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 K59.00 Constipation, unspecified Constipation, unspecified Di agnosis 02/24/2020 10:04:10 AM EST [facility] Missed Appointment Missed Appointment Diagnosis 0 11:13:25 AM EST [facility] J06.9 Acute upper respiratory infection, unspe cified Acute upper respiratory infection, unspecified Diagnosis 01/27/2020 02:33:55 PM EST [facility] Z23 Encounter for immunization Encounter for immunization Diagnosis 01/27/2020 02:33:[address] [facility] D72.829 Elevated white blood cell count, unspeci fied Elevated white blood cell count, unspecified Diagnosis 01/27/2020 02:33:55 PM EST [facility] Follow-up for: Follow-up for: Diagnosis 01/27/2020 02:33: 55 PM EST [facility] Outreach Outreach Diagnosis 01/01/2020 10:46:[address] [facility] F10.21 Alcohol dependence, in remission Alcohol depende nce, in remission Diagnosis 12/20/2019 09:41:40 AM EDT [facility]th Z01.20 Encounter for dental examination and alejo aning without abnormal findings Encounter for dental examination and cleaning without abnormal findings Diagnosis 11/24/2019 03:46:20 PM EDT [facility] Z00.00 Encounter for general adult medical examination without abnormal findings Encounter for general adult medical examination withou t abnormal findings Diagnosis 11/24/2019 01:03:21 PM EDT [facility] 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 R21 Rash and other nonspecific skin eruption Rash and other nonspecific skin eruption Diagnosis 11/24/2019 01:03:21 PM EDT [facility] Z80.3 Family history of malignant neoplasm of breast Family history of malignant neoplasm of breast Diagnosis 11/24/2019 01:03:21 PM EDT [facility] Z71.7 Human immunodeficiency virus [HIV] couns eling Human immunodeficiency virus (HIV) counseling Diagnosis 11/24/2019 01:03:21 PM EDT [facility] Z11.3 Encounter for screening for infections with a predominantly sexual mode of transmission Encounter for screening for infections w ith a predominantly sexual mode of transmission Diagnosis 11/24/2019 01:03:21 PM EDT [facility] Z12.4 Encounter for screening for malignant ne oplasm of cervix Encounter for screening for malignant neoplasm of cervix Diagnosis 11/24/2019 01:03: 21 PM EDT [facility] Z53.20 Procedure and treatment not carried out because of patient's decision for unspecified reasons Procedure and treatment not carried out because of patient s decision for unspecified reasons Diagnosis 10/28/2019 09:35:[address] [facility] Z12.31 Encounter for screening mammogram for ma lignant neoplasm of breast Encounter for screening mammogram for malignant neoplasm of breast Diagnosis 10/03/2019 12:37:43 PM EDT [facility] T78.40XA Allergy, unspecified, initial encounter Allergy, unspecified, initial encounter Diagnosis 10/03/2019 12:37:43 PM EDT [facility] Virtual Visit (Telephone Only) Virtual Visit (Telephon e Only) Diagnosis 10/03/2019 12:37:43 PM EDT [facility] Z53.29 Procedure and treatment not carried out because of patient's decision for other reasons Procedure and treatment not carried out because of patient s decision for other reasons Diagnosis 09/29/2019 11:28:56 AM EDT [facility] M54.32 Sciatica, left side Sciatica, left side Diagnosis 0 09/11/2019 12:25:50 PM EDT [facility] F32.0 Major depressive disorder, single episod e, mild Major depressive disorder, single episode, mild Diagnosis 08/12/2019 09:13:34 AM EDT [facility] R42 Dizziness and giddiness Dizziness and giddiness Diagno sis 08/12/2019 09:13:34 AM EDT [facility] Lab Results Lab Results Diagnosis 08/12/2019 09:13:34 AM EDT [facility] N91.2 Amenorrhea, unspecified Amenorrhea, unspecified Diagno sis 07/31/2019 11:12:25 AM EDT [facility] Fatigue Fatigue Diagnosis 07/31/2019 11:12:[address] [facility] Missed Period Missed Period Diagnosis 07/31/2019 11:12:25 AM EDT [facility] Other Other Diagnosis 07/31/2019 11:12:25 AM ED T [facility] Surgeries/Procedures Procedure Description Date Indications Data Source(s) FLUCELVAX, INFLUENZA, CCIIV4, PSRV FREE, 4YRS+, 0.5 ML , PREFILLED SYRINGE FLUCELVAX, INFLUENZA, CCIIV4, PSRV FREE, 4YRS+, 0.5 ML, PREFILLED SYRINGE Routine 01/27/2020 3:54 PM EST Need for prophylactic vaccination and inoculation against influenza 01/27/2020 03:54:58 PM EST Need for prophylactic vaccination and in oculation against influenza [facility] Need for prophylactic vaccination and in oculation against influenza CHEMODNRVTJ [facility] INNERVATED FACIAL NRV 12/15/2019 12:00:00 AM EDT MEDDANIA ([facility] ) ORAL HYGIENE INSTRUCTIONS ORAL HYGIENE INSTRUCTIONS Routine 11/24/2019 3:30 PM EDT Dental examination Encounter for dental examination and cleaning without abnormal findings 11/24/2019 03:30:00 PM EDT Encounter for dental examination and alejo aning without abnormal findingsDental examination [facility] Encounter for dental examination and alejo aning without abnormal findings Dental examination DENTAL PROPHYLAXIS ADULT DENTAL PROPHYLAXIS ADULT Routine 11/24/2019 3:30 PM EDT Dental examination Encounter for dental examination and cleaning without abnormal findings 11/24/2019 03:30:00 PM EDT Encounter for dental examination and alejo aning without abnormal findingsDental examination [facility] Encounter for dental examination and alejo aning without abnormal findings Dental examination BITEWINGS - FOUR RADIOGRAPHC IMAGES BITEWINGS - FOUR RADIOG RAPHC IMAGES Routine 11/24/2019 3:30 PM EDT Dental examination Encounter for dental examination and cleaning without abnormal findings 11/24/2019 03:30:00 PM EDT Encounter for dental examination and alejo aning without abnormal findingsDental examination [facility] Encounter for dental examination and alejo aning without abnormal findings Dental examination IO-PERIAPICAL EA ADD RADIOGRPH IMAG IO-PERIAPICAL EA ADD RA DIOGRPH IMAG Routine 11/24/2019 3:30 PM EDT Dental examination Encounter for dental examination and cleaning without abnormal findings 11/24/2019 03:30:00 PM EDT Encounter for dental examination and alejo aning without abnormal findingsDental examination [facility] Encounter for dental examination and alejo aning without abnormal findings Dental examination IO-PERIAPICAL 1ST RADIOGRAPHC IMAGE IO-PERIAPICAL 1ST RADIO GRAPHC IMAGE Routine 11/24/2019 3:30 PM EDT Dental examination Encounter for dental examination and cleaning without abnormal findings 11/24/2019 03:30:00 PM EDT Encounter for dental examination and alejo aning without abnormal findingsDental examination [facility] Encounter for dental examination and alejo aning without abnormal findings Dental examination COMP ORAL EVALUATION - NEW/EST PT COMP ORAL EVALUATION - NEW/ES T PT Routine 11/24/2019 3:30 PM EDT Dental examination Encounter for dental examination and cleaning without abnormal findings 11/24/2019 03:30:00 PM EDT Encounter for dental examination and alejo aning without abnormal findingsDental examination [facility] Encounter for dental examination and alejo aning without abnormal findings Dental examination HIV 1 & 2 <td><content ID="[id number] name">HIV 1 & 2</content></td><td>Routine</td><td>11/24/2019 1:54 PM EDT</td><td><paragraph>Encounter for human immunodeficiency virus (HIV) counseling</paragraph><paragraph>Human immunodeficiency virus (HIV) counseling</paragraph></td><td><paragraph styleCode="header">Results for this procedure are in the <content styleCode="[id number]">results section</content>.</paragraph></td> 11/24/2019 01:54:00 PM EDT Human immunodeficiency virus (HIV) counselingEncounter for human immunodeficiency virus (HIV) counseling [facility] Human immunodeficiency virus (HIV) couns siva Encounter for human immunodeficiency vir us (HIV) counseling CONSULT TO DERMATOLOGY CONSULT TO DERMATOLOGY 10/09/2019 02:21:[address] [facility] TDAP VACCINE 7/> YR IM TDAP VACCINE SQ IMM CLINIC Routine 09/11/2019 12:59 PM EDT Need for prophylactic vaccination with combined svjfrdtuuq-abytqmz-bgdujmepb (DTP) vaccine 09/11/2019 12:59:17 PM EDT Need for prop hylactic vaccination with combined lsvjsfzecy-ssoyulv-hnmnhfceu (DTP) vaccine [facility] Need for prophylactic vaccination with c ombined qwiimnzgzc-mlxxuxy-lifrkktei (DTP) vaccine IMMUNIZ ADMIN; 1 VACCINE (1/COMBO VACC/* IMMUNIZ ADMI N; 1 VACCINE (1/COMBO VACC/* 09/11/2019 12:00 AM EDT Encounter for immunization 09/11/2019 12:00:[address]coun [address] for immunization [facility] Encounter for immunization THERAPEUTIC PROPHYLACTIC/DX INJECTION SUBQ/IM THERAPE UTIC PROPHYLACTIC/DX INJECTION SUBQ/IM 09/11/2019 12:00 AM EDT Sciatica, left side 09/11/2019 12:00:00 AM EDT Sciatica, left si de [facility] Sciatica, left side CHEMODNRVTJ MUSC MUSC INNERVATED FACIAL NRV 08/18/2019 12:00:00 AM EDT MEDENT ([facility]) (URINE) IN HOUSE (URINE) IN HOUSE Routine 07/31/2019 1:26 PM EDT Absence of menstruation Amenorrhea, unspecified 07/31/2019 01:26:00 PM EDT Amenorrhe a, unspecifiedAbsence of menstruation [facility] Amenorrhea, unspecified Absence of menstruation ECG-ROUTINE W/12 LEADS; W/INTERPT & REP* <td><content ID="[id number]">ECG- ROUTINE W/12 LEADS; W/INTERPT & REP*</content></td><td>Routine</td><td>07/31/2019 1:16 PM EDT</td><td><paragraph>Dizziness</paragraph><paragraph>Dizziness and giddiness</paragraph></td><td><paragraph styleCode="header">Results for this procedure are in the <content styleCode="[id number]">results section</content>.</paragraph></td> 07/31/2019 01:16:00 PM EDT Dizziness and giddinessDizziness [facility] Dizziness and giddiness Dizziness COMP METABOLIC PANEL COMP METABOLIC PANEL Routine 07/31/2019 12:41 PM EDT Dizziness 07/31/2019 12:41:00 PM EDT [facility] TSH, HIGH SENSITIVITY (SERUM) TSH, HIGH SENSITIVITY (SERUM) Rou gloria 07/31/2019 12:41 PM EDT Dizziness 07/31/2019 12:41:00 PM EDT [facility] CBC WITH DIFFERENTIAL AND PLATELETS CBC WITH DIFFERENTIAL A ND PLATELETS Routine 07/31/2019 12:41 PM EDT Dizziness 07/31/2019 12:41:00 PM EDT [facility] CHEMODNRVTJ [facility] INNERVATED FACIAL NRV 05/02/2019 12:00:00 AM EST MEDENT ([facility]) CHEMODNRVTJ [facility] INNERVATED FACIAL NRV 01/30/2019 12:00:00 AM EST MEDENT ([facility]) Results ID Date Data Source [id number] 01/27/2020 04:10:57 PM EST [facility] Reason for Visit and Comments: Follow -up for: [92]Vitals (Last Filed):BP 97/62 (Orthostatic Site : Arm - Left, Orthostatic Posi- tion : Sitting, Orthostatic Cuff Size : Large Adult) Pu- lse 67 Temp 96.8 F (36 C) (Temporal) Ht 5 6" (1.67- 6 m) Wt 176 lb (79.8 kg) BMI 28.41 kg/x8PmaxizMaddie Delacruz MA 01/27/2020 4:10 PM SignedI have [...] been sober 9 months (drug/alcohol)#cbc done by [employer] managed service sales exec showed WBC of 4.3 and asked patient [...] AND HPV W GC/CHLAMYDIAResult Value Ref Range MUTUAL FUNDS AGENT REPORT NILM HPV HR NON 16/18 Not [...] ourclinic-patient reassurance provided.Future AppointmentsDate Time Provider Department Ztzwnc7002/09/2020 11:00 AM Ladan Fernández LMSW [facility] Svetlana, RN 01/27/2020 4:10 PM SignedI [...] by: Maddie Delacruz MA - ReviewedLevel of Service:[id number] OFFIC/OUTPT VISIT E&M EST LOW- MOD SEVER* [...] # children:Social History Narrative 10/23/2013 Born in [place], [place], Highest level of school Senior in college at [employer] working toward a bachelors, Lives with Son [...] rce(s) Supporting Document(s) ID Date Data Source [id number] 12/25/2019 04:17:58 PM EDT [facility] Name Value Range Interpretation Code Description Data Eliz rce(s) Supporting Document(s) Progress Note [facility] [id number] [facility] [file] [id number] ID Date Data Source [id number] 11/24/2019 04:36:40 PM EDT [facility] Reason for Visit and Comments: Mireille ghosh [...] status.Assessment & PlanNo restorative needs.Patient referred to sergeant at arms due to extent of probing depths.Patient referred to oral surgery for extraction of #1, 16, 17, 32Patient to return for occlusal guard due to bruxismNext Visit: Occlusal guardSanikko Alicea DDS [id number] Diagnosis:Z01.20 Dental examinationPrescriptions as of 11/24/2019 Citalopram [...] # children:Social History Narrative 10/23/2013 Born in [place], [place], Highest level of school Senior in college at [employer] working toward a [employer] Payment, Lives with Son and + 3 cats, [...] rce(s) Supporting Document(s) ID Date Data Source [id number] 11/24/2019 02:22:41 PM EDT [facility] Reason for Visit and [...] lb (77.1 kg) SpO2 97% BMI 27.44 kg/p4Rsgookqynkw, KellyDO 11/24/2019 2:22 PM SignedSUBJECTIVE:HPI: I have [...] marijuana use disorder.-Sees a psychiatrist at the [facility] and gets citalopram, trazadoneand naltrexoneOBJECTIVE:PE:BP [...] naltrexone, citalopramas prescribed9. HCM- mammogram completed at [facility]; printed and will be scanned to chart.Future Ap pointmentsDate Time Provider Department Center11/24/2019 3:30 PM Marquez Groves ([place]), DDS [facility] [place] 11/24/2019 2:22 PM SignedI have identified this [...] be Shanda Coughlin, -1975.Shanda Coughlin at [facility] today to have blood drawn. 1 [...] by: Karla Strickland DO - ReviewedLevel of Service:[id number] OFFIC/OUTPT VISIT E&M EST LOW-MOD SEVER* Historical [...] # children:Social History Narrative 10/23/2013 Born in [place], [place], Highest level of school Senior in college at [employer] working toward a bachelors, Lives with Son [...] rce(s) Supporting Document(s) ID Date Data Source [id number] 11/24/2019 01:55:00 PM EDT [facility] Name Value Range Interpretation Code Description Data Eliz rce(s) Supporting Document(s) HIV I & II - NON REACTIVE non-reactive T [facility] HIV KIT LOT # [id number] NA The [facility] HIV KIT EXP DATE 2020-06-18 [facility] INTERNAL CONTROL VALID- HIV 1 & 2 valid [facility] ID Date Data Source [id number] 11/27/2019 06:31:00 PM EDT [facility] Name Value Range Interpretation Code Description Data Eliz rce(s) Supporting Document(s) MUTUAL FUNDS AGENT REPORT NILM The [facility] include 234 beds at the [facility] DIAGNOSIS: Negative for intra epithelial lesion or malignancyADEQUACY: Satisfactory for evaluation / Satisfactory for evaluationCOMMENT: This Pap smear was screened with the assistance of the EnergyChestPrep(TM) Imaging System and screened by a community living specialist.SPECIMEN SOURCE: PAP + HPV PLUS + CT [...] HPV HR NON 16/18 Not Detected [facility] HPV GENOTYPE, 18 Not Detected [facility] HPV GENOTYPE, 16 Not Detected [facility] CHLAMYDIA TRACHOMATIS Not Detected The [facility] NEISSERIA GONORRHOEAE NUCLEIC* Not Detected [facility] HPV High Risk DNA (Non 16/18) (2,3,4,6,7 [...] or urine on one of the below platforms:-Centre for Sight(TM) Qx Amplified DNA Assay tested with the McPhy(TM) System using Strand Displacement Amplification technology. FDA cleared for both ThinPrep, SurePath and urine samples.-The Aptima combo 2(R) Assay detects ribosomal RNA (rRNA) using target capture and Fraud Examiner-Mediated Amplification (TMA) technology. FDA cleared for ThinPrep samples. -The hoda(R) CT/NG v2.0 using the hoda(R) [address]/NG on the hoda(R) 8800 detects DNA using Polymerase Chain Reaction (PCR) technology; the assay is FDA cleared for ThinPrep Samples.(6)This test was evaluated and its performance characteristics determined by [employer]. It has not been cleared or approved by the U.S. Food and Drug Administration. The FDA has determined that such clearance or approval is not necessary. [employer] is certified under the Clinical Laboratory Improvement Amendments of 1988 (CLIA) as qualified to perform high complexity clinical testing. This test is used for clinical purposes. It should not be regarded as investigational or for research.(7)Results should be interpreted together with past and current clinical and laboratory data. ID Date Data Source [id number] 09/11/2019 01:04:14 PM EDT [facility] Reason for Visit and Comments: IMM/IN J [...] Diagnoses:Z23 Need for prophylactic vaccination with combined ajsxptsgch-esvdyaa-jaueuyzkj (DTP) vaccine M54.32 Sciatica, left side (Active) [...] by: Karla Strickland, DO - ReviewedLevel of Service:[id number] NURSING VISIT NO CO-PAY Historical Information Past [...] # children:Social History Narrative 10/23/2013 Born [place], Highest level of school Senior in college at [employer] working toward a bachelors, Lives with Son [...] rce(s) Supporting Document(s) ID Date Data Source [id number] 08/13/2019 08:19:51 AM EDT [facility] Name Value Range Interpretation Code Description Data Eliz rce(s) Supporting Document(s) Progress Note [facility] [id number] lbm [file] [id number] ID Date Data Source [id number] 07/31/2019 02:47:54 PM EDT [facility] Reason for Visit and [...] LMP 07/28/2019 (Exact Anthony- e) BMI 25.5 kg/e7Lwmlwq History RecordedChrist Price MA 07/31/2019 2:47 PM [...] file Gets together: Not on file Attends holiness service: Not on file Active member of [...] on fileSocial History Narrative 10/23/2013 Born [place], Highest level of school Senior in college at [employer] working toward a [employer] Payment, Lives with Son and + 3 cats, [...] Absence of menstruationComment: currently menstruatingPlan: (URINE) IN [place] if symptoms persist or worsenThe patient was warned about the serious risks and complications of notfollowing up as discussed during the visit and verbalized an understanding ofthe plan.Meagan Gary MA 07/31/2019 1:29 PM SignedI have identified this patient to be Shanda Coughlin -1975.Results for orders placed or performed in visit on 07/31/19PREGNANCY (URINE) IN SUMMERFIELDResult Value Ref Range TEST, URINE NEGATIVE neg INTERNAL CONTROL VALID- URINE YESEkg was performed as per provider s ordersGeormilena [facility]oughlin at [facility] to [facility]. oNE SPECKLE, [...] by: Junior Suresh PA - ReviewedLevel of Service:[id number] OFFIC/OUTPT VISIT E&M EST LOW-MOD SEVER* Historical [...] # children:Social History Narrative 10/23/2013 Born [place], Highest level of school Senior in college at [employer] working toward a bachelors, Lives with Son [...] rce(s) Supporting Document(s) ID Date Data Source [id number] 07/31/2019 01:26:00 PM EDT [facility] Name Value Range Interpretation Code Description Data Eliz rce(s) Supporting Document(s) TEST, URINE NEGATIVE neg [facility] INTERNAL CONTROL VALID- URINE YES [facility] ID Date Data Source [id number] 08/01/2019 03:11:00 AM EDT [facility] Name Value Range Interpretation Code Description Data Eliz rce(s) Supporting Document(s) PROTEIN, TOTAL, SERUM 7.1 g/dL 5.9-8.4 [facility] ALBUMIN 4.6 g/dL 3.5-5.2 The [facility] GLOBULIN, TOTAL 2.5 g/dL 1.7-3.7 [facility] A/G RATIO 1.8 Ratio 1.1-2.9 The [facility] SODIUM 140 mmol/L 135-147 The Counts include 234 beds at the [facility] POTASSIUM 4.4 mmol/L 3.5-5.5 The Counts include 234 beds at the [facility] CHLORIDE 103 mmol/L 96-108 The Counts include 234 beds at the [facility] CARBON DIOXIDE 23 mmol/L 22-29 The [facility] UREA NITROGEN (BUN) 11 mg/dL 6-20 [facility] CREATININE 0.83 mg/dL 0.49-1.02 [facility] EGFR 86 mL/min >or=60 The [facility] EGFR 100 mL/min >or=60 The [facility] BUN/CREATININE RATIO 13.3 Ratio 10.0-28.0 The [facility] CALCIUM 9.1 mg/dL 8.6-10.4 The [facility] BILIRUBIN, TOTAL 0.2 mg/dL <1.2 [facility] ALKALINE PHOSPHATASE 60 U/L 40-156 [facility] AST (SGOT) 15 U/L <32 The Counts include 234 beds at the [facility] ALT (SGPT) 13 U/L <33 The [facility] include 234 beds at the [facility] GLUCOSE 79 mg/dL 70-99 The [facility] ID Date Data Source [id number] 08/01/2019 01:19:00 AM EDT [facility] Name Value Range Interpretation Code Description Data Eliz rce(s) Supporting Document(s) TSH 1.290 uIU/mL 0.234-4.020 The [facility] ID Date Data Source [id number] 07/31/2019 11:45:00 PM EDT [facility] Name Value Range Interpretation Code Description Data Eliz rce(s) Supporting Document(s) WHITE BLOOD CELL (WBC) COUNT 4.89 x10(3)/uL 4.00-10.10 [facility] RED BLOOD CELL (RBC) COUNT 4.14 x10(6)/uL 3.58-5.19 [facility] HEMOGLOBIN 13.1 g/dL 11.0-15.5 The Counts include 234 beds at the [facility] HEMATOCRIT 38.9 % 31.5-44.8 The Counts include 234 beds at the [facility] MCV 94.0 fL 78.0-98.0 The [facility] MCH 31.6 pg 25.2-32.6 The [facility] MCHC 33.7 g/dL 31.0-34.7 The [facility] RDW 12.9 % 12.0-15.5 The [facility] POLYS 61.2 % 37.1-78.1 [facility] POLYS, ABS. COUNT 2.99 x10(3)/uL 1.30-7.00 The [facility] LYMPHOCYTES 28.4 % 13.7-50.9 [facility] LYMPHS, ABS. COUNT 1.39 x10(3)/uL 0.80-3.00 The [facility] MONOCYTES 6.3 % 3.0-11.9 The [facility] MONOS, ABS. COUNT 0.31 x10(3)/uL 0.00-1.00 [facility] EOSINOPHILS 3.7 % 0.0-5.0 [facility] EOS, ABS. COUNT 0.18 x10(3)/uL 0.00-0.40 [facility] BASOPHILS 0.4 % 0.0-1.0 The [facility] BASOS, ABS. COUNT 0.02 x10(3)/uL 0.00-0.10 The [facility] IMMATURE GRANULOCYTES 0.0 % 0.0-1.0 [facility] PLATELETS 213 x10(3)/uL 140-425 The [facility] MPV 12.0 fL 8.6-12.1 [facility] Procedure Social History Code Duration Value Status Description Data Source(s ) Alcohol intake 01/27/2020 12:00:00 AM EST Current drinker of al cohol (finding) completed Current drinker of alcohol (finding) [facility] Tobacco use and exposure 01/27/2020 12:00:00 AM EST Never used co mpleted Never used [facility] Smoking 01/27/2020 12:00:00 AM EST Former smoker completed Former smoker [facility] Alcohol intake 11/24/2019 12:00:00 AM EDT Current drinker of al cohol (finding) completed Current drinker of alcohol (finding) [facility] Alcohol intake 09/08/2019 12:00:00 AM EDT Current drinker of al cohol (finding) completed Current drinker of alcohol (finding) [facility] Alcohol intake 08/13/2019 12:00:00 AM EDT Lifetime non-drinker (finding) completed Lifetime non-drinker (finding) [facility] Tobacco use and exposure 08/13/2019 12:00:00 AM EDT Never used co mpleted Never used [facility] Smoking 08/13/2019 12:00:00 AM EDT Never smoker completed Never s [facility] Smoking 08/13/2019 12:00:00 AM EDT Never smoker completed Never [facility] Tobacco smoking status NJIS 08/12/2019 12:00:00 AM EDT Former smoker [facility] Tobacco use and exposure 08/12/2019 12:00:00 AM EDT Never used [facility] Alcohol intake 08/12/2019 12:00:00 AM EDT Current drinker of al cohol (finding) The [facility] Tobacco smoking status NJIS 07/31/2019 12:00:00 AM EDT Former smoker [facility] Alcohol intake 07/31/2019 12:00:00 AM EDT Current drinker of al cohol (finding) [facility] Tobacco use and exposure 07/31/2019 12:00:00 AM EDT Never used [facility] Vital Signs ID Date Data Source UNK Name Value Range Interpretation Code Description Data Source(s) Body mass index (BMI) [Ratio] 28.41 kg/m2 28.41 kg/m2 [facility] Body weight 79.833 kg 79.833 kg [facility] Body height 167.6 cm 167.6 cm [facility] Body temperature 36 Stella 36 Stella The [facility] Heart rate 67 /min 67 /min [facility] Diastolic blood pressure 62 mm[Hg] 62 mm[Hg] [facility] Systolic blood pressure 97 mm[Hg] 97 mm[Hg] T [facility] Oxygen saturation in Arterial blood by Pulse oximetry 97 % 97 % [facility] Body mass index (BMI) [Ratio] 27.44 kg/m2 27.44 kg/m2 [facility] Body weight 77.111 kg 77.111 kg [facility] Body height 167.6 cm 167.6 cm [facility] Respiratory rate 16 /min 16 /min The [facility] Body temperature 36.22 Stella 36.22 Stella The [facility] Heart rate 78 /min 78 /min [facility] Diastolic blood pressure 70 mm[Hg] 70 mm[Hg] [facility] Systolic blood pressure 110 mm[Hg] 110 mm[Hg] T [facility] Body weight 71.668 kg 71.668 kg [facility] Body height 167.6 cm 167.6 cm [facility] Respiratory rate 20 /min 20 /min The [facility] Body temperature 36.89 Stella 36.89 Stella The [facility] Heart rate 56 /min 56 /min [facility] Diastolic blood pressure 82 mm[Hg] 82 mm[Hg] [facility] Systolic blood pressure 120 mm[Hg] 120 mm[Hg] T [facility] ID Date Data Source [id number] 08/13/2019 08:19:51 AM EDT [facility] Name Value Range Interpretation Code Description Data Source(s) WEIGHT RECORDED 180 lb 180 lb [facility] Body height Measured 66 in 66 in [facility] Patient Treatment Plan of Care Planned Activity Planned Date Details Description Data Source (s) Docusate Sodium 100 MG Oral Capsule 02/24/2020 12:00:[address] [facility] Docusate Sodium 100 MG Oral Capsule 01/27/2020 12:00:[address] [facility] Ibuprofen 400 MG Oral Tablet 01/27/2020 12:00:[address] [facility] Folic Acid 1 MG Oral Tablet 12/20/2019 12:00:[address] [facility] Multiple Vitamin (MULTI-VITAMIN) Oral tablet 12/20/2019 12:00:[address] [facility] Fexofenadine hydrochloride 180 MG Oral Tablet 10/10/2019 12:00:00 A M EDT [facility] Citalopram 20 MG Oral Tablet 08/12/2019 12:00:00 AM EDT [facility] Naltrexone hydrochloride 50 MG Oral Tablet 07/31/2019 12:00:00 AM E DT [facility] Multiple Vitamin (MULTI-VITAMIN) Oral tablet 07/31/2019 12:00:00 AM EDT [facility] Nicotine 4 MG Chewing Gum 07/25/2019 12:00:00 AM EDT [facility] ferrous sulfate 325 MG Oral Tablet 07/19/2019 12:00:00 AM EDT [facility] Mirtazapine 15 MG Oral Tablet 07/19/2019 12:00:00 AM EDT [facility] topiramate 50 MG Oral Tablet 07/19/2019 12:00:00 AM EDT [facility] Folic Acid 1 MG Oral Tablet 07/19/2019 12:00:00 AM EDT [facility] 1 ML Ketorolac Tromethamine 30 MG/ML Injection 05/05/2015 12:00:00 AM EST [facility]
[2020-03-24 20:26] VITALS: BP 138/88
== END 2020-03-24 20:33 | disposition home or self-care (01) ==
LOC: M ED 17:26
DX: G43.119 Migraine with aura, intractable, without status migrainosus (principal); Z91.018 Allergy to other foods; J30.89 Other allergic rhinitis; Z79.899 Other long term (current) drug therapy
CPT/HCPCS: 96361; 96374; 96375; 99284; J1885; J2765

== ENCOUNTER → 2020-05-11 | Outpatient (CLI) | payer OTHER ==
[~2020-05-11] MED LIST changes: +BUPR150T12 PO; -BUPR150T4 PO; +DEXM1CAP3 PO; +ESCI10TA16 PO; +EXCETAB33 PO; +IBUP200T45 PO; +MONT10TA10 PO; -MONT5TAB2 PO; +SUMA100T2
[2020-05-11 16:03] LABS: BASO # 0.1 10^3/uL (0.0-0.2); BASO % 1.1 % (0.0-1.0); EOS # 0.2 10^3/uL (0.0-0.5); EOS % 2.1 % (0.0-3.0); HEMATOCRIT 44.9 % (36.0-47.0); HEMOGLOBIN 14.8 g/dl (12.0-15.5); LYMPH # 1.5 10^3/uL (1.5-5.0); LYMPH % 18.7 % (24.0-44.0); MEAN CORPUSCULAR HEMOGLOBIN 29.1 pg (27.0-33.0); MEAN CORPUSCULAR VOLUME 88.4 fl (80.0-96.0); MONO # 0.8 10^3/uL (0.0-0.8); MONO % 9.8 % (2.0-8.0); NEUTROPHILS # 5.4 10^3/uL (1.5-8.5); NEUTROPHILS % 67.8 % (36.0-66.0); PLATELET COUNT, AUTOMATED 300 10^3/uL (150-450); RED BLOOD COUNT 5.08 10^6/uL (4.00-5.40)
[2020-05-11 16:29] LABS: ALBUMIN 3.8 GM/DL (3.2-5.2); ALT/SGPT 19 U/L (12-78); BILIRUBIN,TOTAL 0.6 MG/DL (0.2-1.0); BLOOD UREA NITROGEN 21 MG/DL (7-18); CALCIUM LEVEL 8.9 MG/DL (8.5-10.1); CARBON DIOXIDE LEVEL 29 MEQ/L (21-32); CHLORIDE LEVEL 107 MEQ/L (98-107); CREATININE FOR GFR 0.86 MG/DL (0.55-1.30); GLOMERULAR FILTRATION RATE > 60.0 (>58); GLUCOSE, FASTING 81 MG/DL (70-100); POTASSIUM SERUM 4.7 MEQ/L (3.5-5.1); SODIUM LEVEL 140 MEQ/L (136-145); TOTAL PROTEIN 7.5 GM/DL (6.4-8.2)
== END ==
LOC: M LAB 15:07
PROVIDERS: ATTEND Psychiatry & Neurology Neurology
DX: R51.9 Headache, unspecified (principal)

== ENCOUNTER → 2020-06-28 | Outpatient (CLI) | payer OTHER ==
[2020-06-28 15:50] LABS: FREE T4 1.11 NG/DL (0.76-1.46); PERCENT SATURATION 14.3 % (13.2-45.0); THYROID STIMULATING HORMONE 1.8 uIU/ML (0.358-3.740)
[2020-06-28 15:53] LABS: FOLATE 9.7 NG/ML; TOTAL 25(OH) VITAMIN D 25.4 NG/ML (30.0-100.0)
[2020-06-28 19:06] LABS: HEMOGLOBIN A1c 4.9 %
[2020-06-30 16:13] LABS: Lyme Disease IgG/IgM Antibodie <0.91 ISR (0.00-0.90); Lyme Disease IgM Ab Quantitati <0.80 index (0.00-0.79)
== END ==
LOC: M LAB 14:38
PROVIDERS: ATTEND Physician Assistant
DX: R53.83 Other fatigue (principal)

== ENCOUNTER → 2020-06-29 | Outpatient (REF) | payer OTHER | LOC: M LAB REF 16:50 | PROVIDERS: ATTEND Physician Assistant | DX: R30.0 Dysuria (principal) ==

== ENCOUNTER 2020-07-20 20:56 | Emergency (ER) | payer OTHER ==
[~2020-07-20] VITALS: Ht 167.6 cm; Wt 83.9 kg
[2020-07-20] MEDS ORDERED: BUPR150T12 PO (21:16)
[2020-07-20 21:48] LABS: BASO # 0.1 10^3/uL (0.0-0.2); BASO % 0.7 % (0.0-1.0); EOS # 0.1 10^3/uL (0.0-0.5); EOS % 0.5 % (0.0-3.0); HEMATOCRIT 45.7 % (36.0-47.0); HEMOGLOBIN 15.3 g/dl (12.0-15.5); LYMPH # 1.6 10^3/uL (1.5-5.0); LYMPH % 13.2 % (24.0-44.0); MEAN CORPUSCULAR HGB CONC 33.5 g/dl (32.0-36.5); MEAN CORPUSCULAR VOLUME 86.7 fl (80.0-96.0); MONO # 0.7 10^3/uL (0.0-0.8); MONO % 5.4 % (2.0-8.0); NEUTROPHILS # 9.8 10^3/uL (1.5-8.5); NEUTROPHILS % 79.4 % (36.0-66.0); PLATELET COUNT, AUTOMATED 305 10^3/uL (150-450); RED BLOOD COUNT 5.27 10^6/uL (4.00-5.40); WHITE BLOOD COUNT 12.3 10^3/uL (4.0-10.0)
[2020-07-20 22:11] LABS: HCG, SERUM QUALITATIVE NEGATIVE (NEGATIVE)
[2020-07-20 22:13] LABS: ALT/SGPT 22 U/L (12-78); BLOOD UREA NITROGEN 15 MG/DL (7-18); CALCIUM LEVEL 9.9 MG/DL (8.5-10.1); CARBON DIOXIDE LEVEL 26 MEQ/L (21-32); CHLORIDE LEVEL 107 MEQ/L (98-107); CREATININE FOR GFR 1.03 MG/DL (0.55-1.30); GLOMERULAR FILTRATION RATE > 60.0 (>58); GLUCOSE, FASTING 107 MG/DL (70-100); POTASSIUM SERUM 4.1 MEQ/L (3.5-5.1); SODIUM LEVEL 139 MEQ/L (136-145)
[2020-07-20 22:14] LABS: ALBUMIN 4.2 GM/DL (3.2-5.2); BILIRUBIN,DIRECT 0.1 MG/DL (0.0-0.2); BILIRUBIN,TOTAL 0.7 MG/DL (0.2-1.0); LIPASE 71 U/L (73-393); TOTAL PROTEIN 8.6 GM/DL (6.4-8.2)
[2020-07-20] MEDS ORDERED: ONDANSETRON 4MG/2ML VIAL IV ONE (22:30)
[2020-07-20] MEDS ORDERED: NS 1,000 ML IV ONE (22:30)
[2020-07-20] MEDS ORDERED: KETOROLAC 30 MG/ML 1ML VIAL IV ONE (22:30)
[2020-07-20] MEDS ORDERED: GI COCKTAIL 50ML BTL(HYOSCYAMINE/MAALOX/LIDOCAINE VISCOUS)(1:3:1) PO ONE (22:45)
[2020-07-20 22:47] LABS: CK-MB VALUE MASS < 1.0 NG/ML (<3.6); CPK CREATINE PHOSPHOKINASE 60 U/L (26-192); MB/CK RELATIVE INDEX 1.67 (< OR =4); TROPONIN I < 0.02 NG/ML (< 0.10)
[2020-07-20] MEDS ORDERED: ISOVUE-370 76% 100ML VIAL As Ordered ONE (22:50)
--- NOTE | 2020-07-20 23:36 | REPVR ---
PROCEDURE INFORMATION: Exam: CT Abdomen And Pelvis With Contrast Exam date and time: 07/20/2020 10:58 PM Age: 44 years old Clinical indication: Abdominal pain; Generalized; Additional info: Luq pain TECHNIQUE: Imaging protocol: Computed tomography of the abdomen and pelvis with contrast. Radiation optimization: All CT scans at this facility use at least one of these dose optimization techniques: automated exposure control; mA and/or kV adjustment per patient size (includes targeted exams where dose is matched to clinical indication); or iterative reconstruction. Contrast material: ISVUE 370; Contrast volume: 100 ml; Contrast route: INTRAVENOUS (IV); COMPARISON: CT ABD PELVIS W/O CONTRAST 08/30/2018 9:56 PM FINDINGS: Liver: Normal. No mass. Gallbladder and bile ducts: Normal. No calcified stones. No ductal dilation. Pancreas: Normal. No ductal dilation. Spleen: Normal. No splenomegaly. Adrenal glands: Normal. No mass. Kidneys and ureters: Normal. No hydronephrosis. Stomach and bowel: Minimal sigmoid diverticulosis without diverticulitis. Appendix: A normal appendix is seen. Intraperitoneal space: Unremarkable. No free air. No significant fluid collection. Vasculature: Unremarkable. No abdominal aortic aneurysm. Lymph nodes: Unremarkable. No enlarged lymph nodes. Urinary bladder: Unremarkable as visualized. Reproductive: Probable anterior uterine fibroid on the right measuring 19 x 20 mm. Bones/joints: Unremarkable. No acute fracture. Soft tissues: Minimal fat filled umbilical hernia. IMPRESSION: 1. Small anterior uterine fibroid on the right. 2. Minimal sigmoid diverticulosis without diverticulitis. 3. Otherwise negative CT abdomen/pelvis. Electronically signed by: Ruben Lea On 07/20/2020 23:36:32 PM
--- NOTE | 2020-07-21 00:03 | REPVR ---
PROCEDURE INFORMATION: Exam: CTA Chest With Contrast Exam date and time: 07/20/2020 10:58 PM Age: 44 years old Clinical indication: Other: L chest pain TECHNIQUE: Imaging protocol: Computed tomographic angiography of the chest with contrast. 3D rendering (Not supervised by radiologist): MIP and/or 3D reconstructed images were created by the technologist. Radiation optimization: All CT scans at this facility use at least one of these dose optimization techniques: automated exposure control; mA and/or kV adjustment per patient size (includes targeted exams where dose is matched to clinical indication); or iterative reconstruction. Contrast material: ISOVUE 370; Contrast volume: 100 ml; Contrast route: INTRAVENOUS (IV); COMPARISON: No relevant prior studies available. FINDINGS: Pulmonary arteries: The main pulmonary artery measures 25 mm. No pulmonary embolism is identified. Aorta: The ascending thoracic aorta measures 28 mm. Lungs: Unremarkable. No consolidation. No masses. Pleural spaces: Unremarkable. No pneumothorax. No pleural effusion. Heart: Unremarkable. No cardiomegaly. No pericardial effusion. Lymph nodes: Unremarkable. No enlarged lymph nodes. Liver: The liver at mid clavicular line measures 11.9 cm. Bones/joints: Unremarkable. No acute fracture. Soft tissues: Unremarkable. IMPRESSION: Negative CTA chest. No pulmonary embolism is identified. Electronically signed by: Ruben Lea On 07/21/2020 00:02:58 AM
[2020-07-21] MEDS ORDERED: ZOFR4TAB16 PO (00:51)
[2020-07-21 01:00] VITALS: BP 140/93
--- NOTE | 2020-07-21 05:38 | ECGEPIP ---
[facility] - ED Test Date: 2020-07-20 Pat Name: PAMELLA LONDONO Department: Room: - Gender: Female Lead Javascript Developer: HC : 1975 Requested By: MARK Nevarez Order Number: [id number] Reading MD: Chuy Martinez Measurements Intervals [place] Rate: 66 P: 60 RI: 168 QRS: 48 QRSD: 88 T: 40 QT: 426 QTc: 446 Interpretive Statements Normal sinus rhythm SIMILAR TO 12/22/19 Electronically Signed on 07-21-2020 5:38:23 EDT by Chuy Martinez
== END 2020-07-21 01:08 | disposition home or self-care (01) ==
LOC: M ED 20:56
DX: R10.9 Unspecified abdominal pain (principal); R11.0 Nausea; F41.9 Anxiety disorder, unspecified; F33.9 Major depressive disorder, recurrent, unspecified; Z79.899 Other long term (current) drug therapy; Z79.82 Long term (current) use of aspirin; Z91.048 Other nonmedicinal substance allergy status; Z91.018 Allergy to other foods; Z86.711 Personal history of pulmonary embolism; Z87.39 Personal history of other diseases of the musculoskeletal system and connective tissue
CPT/HCPCS: 36415; 71275; 74177; 80048; 80076; 81001; 82550; 82553; 83690; 84484; 84703; 85025; 93005; 93041; 94760; 96374; 96375; 99285; J1885; J2405; Q9967

== ENCOUNTER 2020-09-05 14:18 | Emergency (ER) | payer OTHER ==
[~2020-09-05] VITALS: Ht 167.6 cm; Wt 84.1 kg
[~2020-09-05 14:18] MED LIST changes: -IBUP200T45 PO; +IBUP200T46 PO; -MONT10TA10 PO; +MONT10TA97 PO; +ZOFR4TAB16 PO
[2020-09-05 15:12] LABS: VENOUS BASE EXCESS 3.2 (-2.0-2.0); VENOUS HCO3 29.5 MEQ/L (23.0-27.0); VENOUS PARTIAL PRESSURE O2 33.9 mmHg (30.0-50.0); VENOUS PH 7.372 UNITS (7.330-7.430); VENOUS STANDARD HCO3 26.5 MEQ/L; VENOUS TOTAL CO2 31.1 MEQ/L (24.0-28.0)
[2020-09-05 15:18] LABS: BASO # 0.1 10^3/uL (0.0-0.2); BASO % 0.8 % (0.0-1.0); EOS # 0.1 10^3/uL (0.0-0.5); EOS % 1.1 % (0.0-3.0); HEMOGLOBIN 13.3 g/dl (12.0-15.5); LYMPH # 1.6 10^3/uL (1.5-5.0); LYMPH % 16.5 % (24.0-44.0); MEAN CORPUSCULAR HEMOGLOBIN 28.9 pg (27.0-33.0); MEAN CORPUSCULAR HGB CONC 33.3 g/dl (32.0-36.5); MEAN CORPUSCULAR VOLUME 86.8 fl (80.0-96.0); MONO # 0.8 10^3/uL (0.0-0.8); NEUTROPHILS # 7.1 10^3/uL (1.5-8.5); NEUTROPHILS % 73.2 % (36.0-66.0); PLATELET COUNT, AUTOMATED 273 10^3/uL (150-450); RED BLOOD COUNT 4.61 10^6/uL (4.00-5.40); WHITE BLOOD COUNT 9.7 10^3/uL (4.0-10.0)
[2020-09-05 15:56] LABS: ALBUMIN 3.5 GM/DL (3.2-5.2); BILIRUBIN,DIRECT 0.2 MG/DL (0.0-0.2); BILIRUBIN,TOTAL 0.8 MG/DL (0.2-1.0); THYROID STIMULATING HORMONE 0.87 uIU/ML (0.358-3.740); TOTAL PROTEIN 7.4 GM/DL (6.4-8.2)
[2020-09-05] MEDS ORDERED: ISOVUE-370 76% 100ML VIAL As Ordered ONE (15:59)
[2020-09-05] MEDS ORDERED: TESS100C PO (16:57)
[2020-09-05 17:07] VITALS: BP 156/88
== END 2020-09-05 17:10 | disposition home or self-care (01) ==
LOC: M ED 14:18
DX: R07.89 Other chest pain (principal); R05 Cough; F33.9 Major depressive disorder, recurrent, unspecified; F90.9 Attention-deficit hyperactivity disorder, unspecified type; Z79.899 Other long term (current) drug therapy
CPT/HCPCS: 36415; 71045; 71275; 80047; 80076; 82803; 83605; 83880; 84443; 84484; 84702; 85025; 87798; 93005; 93041; 94760; 99285; Q9967